=== PATIENT | female | born 1935 | race Caucasian/White ===

== ENCOUNTER 2024-02-06 23:29 | Inpatient (IN) ==
--- OUTSIDE RECORDS SUMMARY | 2024-02-06 23:35 | External Medical Summary | Summary of Care ---
Author Name Unknown Organization [facility] Address [address] [place] [address] Phone [phone] Care Team Providers Care Boatbuilder Wood Name Role Phone ReavesRoxanna alonzo Primary Care Provider [phone] Reason for Visit * Reason Onset Date Comments Med Request 01/18/2024 Encounter Details Date Type Department Care Team (Late st Contact Info) Description 01/18/2024 Telephone Neurology [facility] [place] [address] [facility] [place] [address] Brenda Walton MD [address] [place] [address] Med Request Allergies Active Allergy Reactions Criticality Noted Date Comments Leticia Awad 12/21/2012 documented as of this encounter (statuses as of 01/26/2024) Medications Loperamide HCl 2 MG Oral Capsule (Imodium) 2 capsules in the morning, then 1 capsule after each loose bowel movement, up to 8 capsules per day. 240 Capsule 1 2 Active Metoprolol Succinate ER 25 MG Oral Tablet Extended Release 24 Hour (toPROL XL)Indications:Es sential hypertension with goal blood pressure less than 140/90 Take 1 Tablet by mouth in the morning. In the morning.. 90 Tablet 1 4 Active Triamcinolone Acetonide 0.1 % External Cream (Aristocort)Indic ations:Itching Apply to rash twice a day as neded for itching 45 g 1 4 Active Lisinopril 10 MG Oral Tablet (Prinivil)Indicat ions:Essential hypertension with goal blood pressure less than 140/90 Take 1 Tablet by mouth in the morning. 90 Tablet 3 4 Active Atorvastatin Calcium 10 MG Oral Tablet (Lipitor)Indicati ons:Dyslipidemia, goal LDL below 100 TAKE 1 TABLET BY MOUTH ON THURSDAY, THURSDAY, AND THURSDAY 45 Tablet 3 4 Active Levothyroxine Sodium 75 MCG Oral Tablet (Levoxyl) Take 1 Tablet by mouth in the morning. (at least 30 min prior to breakfast or other meds). 30 Tablet 5 4 Active documented as of this encounter (statuses as of 01/26/2024) Active Problems Problem Noted Date Diagnosed Date Memory deficit 07/27/2023 Overview (07/27/2023): MMSE 26, down from 29 one year prior. COPD, group A, by GOLD 2017 classification 07/21 Overview: Per COPD GOLD Classification Pulmonary fibrosis 08/21/2021 Hypertensive kidney disease with stage 3b chronic kidney disease 12/19/2019 Overview: Per CKD protocol Actinic keratosis 03/24/2018 Hx of nonmelanoma skin cancer 03/23/2017 Overview (11/04/2022): squamous cell carcinoma (R lateral calf 05/2019, L forearm 08/29, R lateral 4th finger 11/01), nonmelanoma skin cancer (forehead- [facility], 50-60 yrs ago) History of uterine cancer 02/24/2017 Copy of advanced directive obtained 02/13/2017 Essential hypertension with goal blood pressure less than 140/90 11/16/2015 Dyslipidemia, goal LDL below 100 07/24/2014 Former heavy tobacco smoker 12/21/2012 Acquired hypothyroidism 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): COLITIS NONINFECTIOUS RADIATION documented as of this encounter (statuses as of 01/26/2024) Resolved Problems Problem Noted Date Diagnosed Date Resolved Date COPD, 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 determined 08/21/2021 07/24/2022 Overview: Per COPD GOLD Classification ILD (interstitial lung disease) 08/21/2021 01/07/2023 Chronic kidney disease, stage 3b 06/19/2020 10/09/2020 Overview: Per CKD protocol Old MA (myocardial infarction) 10/05/2019 10/05/2019 Hypertensive kidney disease with chronic kidney disease stage III 07/07/2018 12/22/2019 Overview: Per CKD protocol 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 02/24/2017 10/09/2020 HTN, goal below 140/90 07/24/201411/15 Constipation, slow transit 07/24/2014 0 02/10/2017 Kidney disease, chronic, sta ge III (GFR 30-59 ml/min) 04/24/2014 07/21/2018 Overview: Per CKD protocol #1 Osteoarthritis of basilar joint of thumb 08/17/2013 2017 Dyslipidemia, goal LDL below 130 01/25/2013 07/24/2014 HTN, goal below 140/80 12/21/201207/24 Chest pain 12/21/2012 01/25/2013 Abnormal ECG 12/21/2012 01/26/2013 GERD (gastroesophageal reflux disease) 12/03/2012 02/10/2017 Iron deficiency anemia 06/24/201112/29 Other iron deficiency anemia 01/17/2010 07/16/2010 Overview (11/10/2016): ICD-10 update of inactive term Dyslipidemia, goal LDL below 160 05/30/2009 01/25/2013 Dyslipidemia, goal to be determined 01/16/2009 05/30/2009 Overview (01/16/2009): Per Lipid Taxonomy. ADVANCE DIRECTIVE INFORMATION 06/27/2005 02/10/2017 Overview (06/27/2005): No, Advance Directive brochure given to patient. Hypothyroidism 09/29/2002 05/30/2008 Mixed dyslipidemia 09/29/2002 9 Overview (01/16/2009): Per Lipid Taxonomy. Senile osteoporosis 02/20/19 15 Other iron deficiency anemia 11/29/2008 Overview (11/10/2016): ICD-10 update of inactive term Degeneration of lumbosacral intervertebral disc 02/10/2017 Urge incontinence 02/10/2017 Female stress incontinence 0 02/10/2017 documented as of this encounter (statuses as of 01/26/2024) Immunizations Name Administration Dates Next Due COVID-19 mRNA, LNP-s, No Pre serve, 2-Dose Series (Pfizer) 10/10/2020,04/06/2020,03/16/2020 Pneumococcal Conjugate Vacc, 13 Valent (Prevnar) 07/24/2014 Pneumococcal Polysaccharide PPV23 (Pneumovax) 02/09/2003 Season Influenza, Quad, PF, Adjuvanted, 65+ Yrs, IM (FLUAD) 11/07/2019 Seasonal Influenza Vac., MDV , IM, 0.5 mL (Fluzone) 11/10/2015,11/09/2013,11/09/2012,11/09,12/14/2010,11/09/2009 Seasonal Influenza, PF, 6 M & above, IM , (FluLaval or Fluzone) 12/10/2017 Seasonal Influenza, Quadriva lent, No Preserve, IM 11/08/2022,12/08/2016,11/23/2014 Seasonal Influenza, Trivalen t, Adjuvanted, 65+ YRS, PF, (Fluad) 10/25/2020,10/18/2018 TD, Preservative Free 11/29/2008 TDAP (age 10 and older)(Boostrix) 10/05/2019 Varicella Zoster Vaccine (Adult) 01/10/2012 Zoster Vaccine Recombinant (Shingrix) 01/07/2023 ,07/21/2022 documented as of this encounter Social History Tobacco Use Types Packs/Day Years Used Date Smoking Tobacco: Former Cigarettes 1.5 35 0 02/09/1953 - 02/09/1990 Smokeless Tobacco: Never Alcohol Use Standard Drinks/Week Comments No 0 (1 standard drink = 0.6 oz pur e alcohol) PHQ-2 Answer Date Recorded PHQ Adult Total Score 0 07/27/2023 Hunger Vital Sign Answer Date Recorded Within the past 12 months, y ou worried that your food would run out before you got the money to buy more. Never true 07/27/19 24 Within the past 12 months, t he food you bought just didn't last and you didn't have money to get more. Never true 07/27/2023 Childcare Answer Date Recorded Do you feel overwhelmed with taking care of a child, family member or friend? No 07/27/2023 Does your family need help f inding childcare? (Household - for ages 0-17 years) Not on file 07/27/2023 Clothing Answer Date Recorded Have you been unable to get clothing when it was really needed? No 07/27/2023 Is your family able to get c lothes or diapers when needed? (Household - for ages 0-17 years) Not on file 07/27/2023 Personal Safety Answer Date Recorded Do you feel unsafe or have concerns for your saf ety? No 07/27/2023 Do you have concerns for you r family's safety? (Household - for ages 0-17 years) Not on file 07/27/2023 Utilities Answer Date Recorded Do you have trouble paying y our heating, water, or electric bill? No 07/27/2023 Is your family able to pay t he heat, water, or electric bill? (Household - for ages 0-17 years) Not on file 07/27/2023 Does your family have access to good internet? (Household - for ages 0-17 years) Not on file 07/27/2023 Employment Status Answer Date Recorded Are you unemployed or without regular income? No 07/27/2023 Does the household have a re gular source of income? (Household - for ages 0-17 years) Not on file 07/27/2023 Social Connections Answer Date Recorded How often do you feel lonely or isolated from those around you? Sometimes 07/27/2023 Financial Resource Strain Answer Date R ecorded Do you have any trouble payi ng for your medications, or do you think you might in the future? No 07/27/2023 Does your family have troubl e paying for medicine? (Household - for ages 0-17 years) Not on file 07/27/2023 Transportation Needs Answer Date Record ed READ ONLY Do you have troubl e getting a ride to medical visits or work? Never True 07/27/2023 Does your family have a hard time getting a ride to doctors visits? (Household - for ages 0-17 years) Not on file 07/27/2023 Has lack of transportation k ept you from medical appointments, meetings, work, or from getting things needed for daily living? Check all that apply. (Adult - for ages 18 years and over) Not on file 07/27/2023 Do you (or your family) have trouble finding or paying for a ride (transportation)? (Household - for ages 0-17 years) Not on file 07/27/2023 Housing Stability Answer Date Recorded Do you currently live in a s helter or have no steady place to sleep at night? No 07/27/2023 READ ONLY Do you think you a re at risk of becoming homeless? No 07/27/2023 Does your family worry about paying for your home or becoming homeless? (Household - for ages 0-17 years) Not on file 0 07/27/2023 Are you homeless or worried that you might be in the future? (Adult - for ages 18 years and over) Not on file Are you (or your family) douglas eless or worried that you might be in the future? (Household - for ages 0-17 years) Not on file Food Insecurity Answer Date Recorded Do you need food for this week? No 07/27/2023 Are you able to get enough f ood for your family? (Household - for ages 0-17 years) Not on file 07/27/2023 Does your family need food t his week? (Household - for ages 0-17 years) Not on file 07/27/2023 Do you always have enough fo od for your family? 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 * Telephone Encounter - Althea De La Rosa electrical assembler - 01/20/2024 9:50 AM EST Daughter calling about vitamin b asking for call back from pcp. Thank you, Althea De La Rosa,[facility] [employer] [facility] 01/20/2024,9:50 AM * Telephone Encounter - Terese Villavicencio, MED ASSIST - 01/18/2024 10:52 AM EST LMOM. Ok to relay message when daughter returns call. * Telephone Encounter - Brenda Walton MD - 01/18/2024 9:14 AM EST Call patient's daughter tell her vitamin B12 level is very low this can cause memory issues. Primary care should be in touch about how to supplement typically this would be via injection documented in this encounter Plan of Treatment Upcoming Encounters Date Type Department Care Team (Late st Contact Info) Description 01/29/2024 9:20 AM EST Nurse Only Ancillary [address] [place] [id number] Beatrice, Nurse [address] [place] [address] 02/08/2024 8:45 AM EST Imaging Radiology [address] [place] [address] 03/16/2024 8:50 AM EST Office Visit Family Medicine [address] [place] [phone] Roxanna Reaves, [address] [place] [address] 03/24/2024 1:00 PM EST Office Visit Neurology [facility] [address] [facility] [place] [address] Brenda Walton MD [address] [place] [address] 07/28/2024 9:00 AM EDT Nurse Only Ancillary [address] [place] [address] [place], Nurse Annual Wellness [address] [place] [address] [place] [address] Health Maintenance Due Date Last Done Comments Alpha-1 Antitrypsin 09/10/1953 DXA Scan 09/02/2020 09/02/2013, 10/11, 02/07/2009 *COPD SEVERITY VERIFIED BY PFT 08/23/2021 COVID-19 Vaccine ( season) 2023 11/25/2021, 01/17/2021, 10/10/2020, Additional history exists Influenza Vaccine (FLU shot) (#1) 2023 11/08/2022, 11/08/2022, 10/22/2022, Additional history exists Albumin/Creatinine Ratio 01/08/2024 023, 01/07/2022, 10/09/2020, Additional history exists CKD PHOS USE SMARTSET 07428 01/08/202412/11, 01/07/2022, 10/09/2020, Additional history exists Adult Wellness Visit 07/26/2024 07/27/2023, 07/24/2022, 12/31/2020 Depression Screening 07/26/2024 07/27/2023 CKD HGB USE SMARTSET 89733 01/14/202501/14, 01/15/2024, 01/07/2023, Additional history exists O2 ASSESSMENT COMPLETED IN PAST YEAR FOR COPD 01/14/2025 01/15/2024 TSH 01/14/2025 01/15/2024, 12/11, 07/17/2022, Additional history exists DTap/Tdap Vaccines (2 - Td or Tdap) 10/04/2029 10/05/2019, 11/29/2008 Pneumococcal Vaccine: 65+ Years Completed 07/24/2014, 02/09/2003 Zoster Vaccines Completed 01/07/2023, 07/10, 01/10/2012 HPV (Gardasil) Vaccine Aged Out No lo nger eligible based on patient's age to complete this topic Hepatitis B Vaccine Aged Out No longe r eligible based on patient's age to complete this topic MENINGOCOCCAL (MENACTRA/MENVEO) Aged Out No longer eligible based on patient's age to complete this topic documented as of this encounter Medical Devices Not on filedocumented as of this encounter Care Teams Boatbuilder Wood Relationship Specialty Start Date End Date Roxanna Reaves DO [address] [place] [address] [place] [phone] PCP - General Internal Medicine 02/10/17 documented as of this encounter
--- OUTSIDE RECORDS SUMMARY | 2024-02-06 23:35 | External Medical Summary | Summary of Care ---
Author Name Unknown Organization [facility] Address [address] [place] [address] Phone [phone] Care Team Providers Care Internet Media Planner Name Role Phone Roxanna Reaves DO Primary Care Provider [phone] Reason for Visit * Reason Onset Date Comments Test Results 01/18/2024 Encounter Details Date Type Department Care Team (Late st Contact Info) Description 01/18/2024 Telephone Family Medicine [address] [place] [phone] Roxanna Reaves DO [address] [place] [address] [place] [phone] Test Results Allergies Active Allergy Reactions Criticality Noted Date Comments Leticia Awad 12/21/2012 documented as of this encounter (statuses as of 01/21/2024) Medications Loperamide HCl 2 MG Oral Capsule [...] other meds). 30 Tablet 5 4 Active Hospital, Clinic, or Other Facility Administered Medication Ordered Dose Route Frequency Start Date End Date Status Vitamin B-12 (Cyanocobalamin) inj 1,000 mcgIndications:Vitamin B12 deficiency 1000 mcg IM [id number] 02/18/2024 01/18/2025 Active Vitamin B-12 (Cyanocobalamin) inj 1,000 mcgIndications:Vitamin B12 deficiency 1000 mcg IM [id number] 01/18/2024 02/15/2024 Active documented as of this encounter (statuses as of 01/21/2024) Active Problems Problem Noted Date Diagnosed Date [...] as of this encounter (statuses as of 01/21/2024) Resolved Problems Problem Noted Date Diagnosed Date Resolved Date COPD, 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 determined 08/21/2021 07/24/2022 Overview: Per COPD GOLD Classification ILD (interstitial lung disease) 08/21/2021 01/07/2023 Chronic kidney disease, stage 3b 06/19/2020 10/09/2020 Overview: Per CKD protocol Old [place] (myocardial infarction) 10/05/2019 10/05/2019 Hypertensive kidney disease [...] as of this encounter (statuses as of 01/21/2024) Immunizations Name Administration Dates Next Due COVID-19 [...] 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 Notify Winter. * Telephone Encounter - Sundeep Cabrera LPN - 01/21/2024 11:39 AM EST Michael Max is aware of note below. Ct is scheduled for first B 12 shot tomorrow. What is the dosage/frequency for OTC B12 tablet? Contact Winter today or update her at apt tomorrow. Please clarify * Telephone Encounter - Estelita Morel LPN - 01/21/2024 10:35 AM EST Left message for michael Max to return my call. * Telephone Encounter - Roxanna Reaves DO - 01/18/2024 11:13 AM EST Please call pt's family: Her vitamin B12 level is very low. I would like her to come in once a week x 4 weeks for vitamin B12 shots, then monthly thereafter. I would also like her to start an over the counter vitamin B12 supplement. Recheck vitamin B12 level in 6-8 weeks. If she has the blood work the same day as one of her shots,she needs to do the blood work FIRST. documented in this encounter Plan of Treatment Upcoming Encounters Date Type Department Care Team (Late st Contact Info) Description 01/22/2024 9:20 AM EST Nurse Only Ancillary [address] [place] [address] Jose Luis, Nurse [address] [place] [address] 02/08/2024 8:45 AM EST Imaging Radiology [address] [place] [address] 03/16/2024 8:50 AM EST Office Visit Family Medicine [address] [place] [phone] Roxanna Reaves DO [address] [place] [address] [place] [address] 03/24/2024 1:00 PM EST Office Visit Neurology [facility] [address] [place] [address] Brenda Walton MD [address] [place] [address] 07/28/2024 9:00 AM EDT Nurse Only Ancillary [address] [place] [address] Rebeka, Nurse [address] [place] [address] Scheduled Orders Name Type Priority Associated Diagnoses Orde r Schedule VITAMIN B12 Lab Routine Vitamin B12 deficiency Expected: 02/29/2024 (Approximate), Expires: 01/17/2025 Health Maintenance Due Date Last Done Comments Alpha-1 Antitrypsin 09/10/1953 DXA Scan 09/02/2020 09/02/2013, 10/11, 02/07/2009 *COPD SEVERITY VERIFIED BY PFT 08/23/2021 COVID-19 Vaccine ( season) 2023 11/25/2021, 01/17/2021, 10/10/2020, Additional history exists Influenza Vaccine (FLU shot) (#1) 2023 11/08/2022, 11/08/2022, 10/22/2022, Additional history exists Albumin/Creatinine Ratio 01/08/2024 023, 01/07/2022, 10/09/2020, Additional history exists CKD PHOS USE SMARTSET 24447 01/08/202412/11, 01/07/2022, 10/09/2020, Additional history exists Adult Wellness Visit 07/26/2024 07/27/2023, 07/24/2022, 12/31/2020 Depression Screening 07/26/2024 07/27/2023 CKD HGB USE SMARTSET 85145 01/14/202501/14, 01/15/2024, 01/07/2023, Additional history exists O2 [...] Not on filedocumented as of this encounter Visit Diagnoses Diagnosis Vitamin B12 deficiency- Primary Other B-complex deficiencies documented in this encounter Care Teams Internet Media Planner Relationship Specialty Start Date End Date Roxanna Reaves DO NPI: [id number] [place] [address] [place] [id number] PCP - General Internal Medicine 02/10/17 documented as of this encounter
--- OUTSIDE RECORDS SUMMARY | 2024-02-06 23:35 | External Medical Summary | Summary of Care ---
Author Name Unknown Organization [facility] Address [address] [place] [address] Phone [phone] Care Team Providers Care Trainer Name Role Phone Roxanna Reaves Primary Care Provider [phone] Reason for Visit * Reason Comments Re-Check Encounter Details Date Type Department Care Team (Latest Contact Info) Description 02/04/2024 9:20 AM EST Office Visit Family Medicine [address] [place] [address] Omari Araujo MD [address] [place] [address] [place] [address] Bilateral impacted cerumen*; Radiation enterocolitis Allergies Active Allergy Reactions Criticality Noted Date Comments Leticia Awad 12/21/2012 documented as of this encounter (statuses as of 02/04/2024) Medications Loperamide HCl 2 MG Oral Capsule [...] 1,000 mcgIndications:Vitamin B12 deficiency 1000 mcg IM [id number] 02/18/2024 01/18/2025 Active Vitamin B-12 (Cyanocobalamin) inj 1,000 mcgIndications:Vitamin B12 deficiency 1000 mcg IM QWEEK 01/18/2024 02/15/2024 Active documented as of this encounter (statuses as of 02/04/2024) Active Problems Problem Noted Date Diagnosed Date [...] as of this encounter (statuses as of 02/04/2024) Resolved Problems Problem Noted Date Diagnosed Date Resolved Date COPD, 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 determined 08/21/2021 07/24/2022 Overview: Per COPD GOLD Classification ILD (interstitial lung disease) 08/21/2021 01/07/2023 Chronic kidney disease, stage 3b 06/19/2020 10/09/2020 Overview: Per CKD protocol Old PR (myocardial infarction) 10/05/2019 10/05/2019 Hypertensive kidney disease [...] as of this encounter (statuses as of 02/04/2024) Immunizations Name Administration Dates Next Due COVID-19 [...] 0 02/09/1953 - 02/09/1990 Smokeless Tobacco: Never Tobacco Cessation:Counseling Given: Not Answered Alcohol Use Standard Drinks/Week Comments No 0 [...] Industry Job Start 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 Not on file Not o n file 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 Not on file Not on file N ot on file documented as of this encounter Last Filed Vital Signs Vital Sign Reading Time Taken Comments Blood Pressure 80/60 02/04/2024 9:09 AM EST Pulse 88 02/04/2024 9:09 AM EST Temperature 35.8 C (96.5 F) 02/04/2024 9:09 AM ES T Respiratory Rate - - Oxygen Saturation 95% 02/04/2024 9:09 AM EST Inhaled Oxygen Concentration - - Weight 62.2 kg (137 lb 3.2 oz) 02/04/2024 9:09 A M EST Height 155.6 cm (5' 1.25") 02/04/2024 9:09 AM ES T Body Mass Index 25.71 02/04/2024 9:09 AM EST documented in this encounter Progress Notes * Omari Araujo MD - 02/04/2024 9:10 AM EST Nursing Notes: Nicol Wall CMA 02/04/24 0916 Sign at exiting of workspace Was seen at [facility] last week needing ears flushed, but they gave pt deborx drops and told pt to f/u here after taking for a week, also wants B12 shot Patient Active Problem List Diagnosis Acquired hypothyroidism Radiation enterocolitis Former heavy tobacco smoker Dyslipidemia, goal LDL below 100 Essential hypertension with goal blood pressure less than 140/90 Copy of advanced directive obtained History of uterine cancer Hx of nonmelanoma skin cancer Actinic keratosis Hypertensive kidney disease with stage 3b chronic kidney disease Pulmonary fibrosis (HCC) COPD, group A, by GOLD 2017 classification (HCC) Memory deficit Past Medical History: Diagnosis Date Cervical cancer (HCC) 1989 Constipation, slow transit 07/24/2014 Degeneration of lumbosacral intervertebral disc Diverticulosis of colon Dyslipidemia, goal LDL below 100 07/24/2014 Dyslipidemia, goal LDL below 160 05/30/2009 Female stress incontinence GERD (gastroesophageal reflux disease) 12/03/2012 History of malignant neoplasm metastatic to lung 02/24/2017 HTN, goal below 140/90 07/24/2014 Intestinal obstruction (HCC) STRICTURE (SEE ALSO STENOSIS) BOWEL - colonic stricture Iron deficiency anemia 06/24/2011 Malignant neoplasm of lower lobe, bronchus or lung 1989 METs from uterine cancer Mixed dyslipidemia Osteoarthritis of basilar joint of thumb 08/17/2013 Other specified acquired hypothyroidism Other specified iron deficiency anemias Radiation enterocolitis COLITIS NONINFECTIOUS RADIATION Senile osteoporosis Urge incontinence Past Surgical History: Procedure Laterality Date APPENDECTOMY W/OTHER PROCEDURE age 42 CARDIAC CATH SCANNED RESULT 01/07/2013 minor irregularities COLONOSCOPY, DIAGNOSTIC (RECTUM) 2005 [facility] - unable to do due to scarring from radiation COLONOSCOPY, DIAGNOSTIC (RECTUM) 04/29/2005 radiation colitis and colonic stricture - Dr. Haney CORONARY ANGIOGRAPHY W/LEFT HEART CATH 01/07/2013 CORONARY ANGIOGRAPHY W/LEFT HEART CATH performed by Willy Prater MD at [facility] [place] EGD, FLEXIBLE, DIAGNOSTIC 08/16/2007 biopsies--mild irritation, negative for H.Pylori EGD, FLEXIBLE, DIAGNOSTIC 10/24/2019 esophagitis, gastric ulcers, repeat 8 wks / ESOPHAGOGASTRODUODENOSCOPY (EGD), FLEXIBLE, TRANSORAL, DIAGNOSTIC performed by Estelita Barertt DO at ENDOSCOPY [facility] FLUORO BARIUM ENEMA W AIR 2005 [facility] - normal LIGATE/CUT OVIDUCT(S) age 42 REMOVAL OF OVARY/OVIDUCT(S) 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 Tobacco Use Smoking status: Former Current packs/day: 0.00 Average packs/day: 1.5 packs/day for 35.0 years (52.5 ttl pk-yrs) Types: Cigarettes Start date: 02/09/1953 Quit date: 02/09/1990 Years since quittin.0 Smokeless tobacco: Never Vaping Use Vaping status: Never Used Substance and Sexual Activity Alcohol use: No Drug use: No Sexual activity: Not Currently Partners: Male Other Topics Concern Service No Blood Transfusions Yes Comment: 01/18 Caffeine Concern No Occupational Exposure No Hobby Hazards No Sleep Concern No Stress Concern No Weight Concern No Special Diet No Back Care Yes Exercise Yes Bike Helmet Not Asked Seat Belt Not Asked Self-Exams Yes Social History Narrative No pets. No mold. as of 1989 Social Needs Financial Resource Strain: Low Risk (07/27/2023) Financial Resource Strain Do you have any trouble paying for your medications, or do you think you might in the future? (Adult - for ages 18 years and over): No Does your family have trouble paying for medicine? (Household - for ages 0-17 years): Not on file Food Insecurity: No Food Insecurity (07/27/2023) Food Insecurity Do you need food for this week? (Adult - for ages 18 years and over): No Are you able to get enough food for your family? (Household - for ages 0-17 years): Not on file Does your family need food this week? (Household - for ages 0-17 years): Not on file Do you always have enough food for your family? (Household - for ages 0-17 years): Not on file Transportation Needs: No Transportation Needs (07/27/2023) Transportation Needs Do you have trouble getting a ride to medical visits or work? (Adult - for ages 18 years and over):Never True Does your family have a hard time getting a ride to doctors visits? (Household - for ages 0-17 years): Not on file Has lack of transportation kept you from medical appointments, meetings, work, or from getting things needed for daily living? Check all that apply. (Adult - for ages 18 years and over): Not on file Do you (or your family) have trouble finding or paying for a ride (transportation)? (Household - for ages 0-17 years): Not on file Social Connections: Socially Integrated (07/27/2023) Social Connections How often do you feel lonely or isolated from those around you? (Adult - for ages 18 years and over): Sometimes Housing Stability: Low Risk (07/27/2023) Housing Stability Do you currently live in a usp or have no steady place to sleep at night? (Adult - for ages 18 years and over): No Do you think you are at risk of becoming homeless? (Adult - for ages 18 years and over): No Does your family worry about paying for your home or becoming homeless? (Household - for ages 0-17 years): Not on file Are you homeless or worried that you might be in the future? (Adult - for ages 18 years and over): Not on file Are you (or your family) homeless or worried that you might be in the future? (Household - for ages0-17 years): Not on file Current Outpatient Medications Medication Sig Dispense Refill Loperamide HCl 2 MG Oral Capsule (Imodium) 2 capsules in the morning, then 1 capsule after each loose bowel movement, up to 8 capsules per day. 240 Capsule 1 Metoprolol Succinate ER 25 MG Oral Tablet Extended Release 24 Hour (toPROL XL) Take 1 Tablet by mouth in the morning. In the morning.. 90 Tablet 1 Triamcinolone Acetonide 0.1 % External Cream (Aristocort) Apply to rash twice a day as neded for itching 45 g 1 Lisinopril 10 MG Oral Tablet (Prinivil) Take 1 Tablet by mouth in the morning. 90 Tablet 3 Atorvastatin Calcium 10 MG Oral Tablet (Lipitor) TAKE 1 TABLET BY MOUTH ON THURSDAY, THURSDAY, AND THURSDAY 45 Tablet 3 Levothyroxine Sodium 75 MCG Oral Tablet (Levoxyl) Take 1 Tablet by mouth in the morning. (at least 30 min prior to breakfast or other meds). 30 Tablet 5 Current Facility-Administered Medications Medication Dose Route Frequency Provider Last Rate Last Admin [START ON 02/18/2024] Vitamin B-12 (Cyanocobalamin) inj 1,000 mcg 1,000 mcg Intramuscular Q4 Weeks Vitamin B-12 (Cyanocobalamin) inj 1,000 mcg 1,000 mcg Intramuscular Q Week 1,000 mcg at 01/29/24 0907 B12 shot given O Blood pressure 80/60, pulse 88, temperature 96.5 F (35.8 C), temperature source Infrared , height 5' 1.25" (1.556 m), weight 137 lb 3.2 oz (62.2 kg), SpO2 95%. She has wax bilateraly. I personally rinsed out the cerumen impaction with warm water and the syringe. A curette was used to help with removing the wax. TMs and canals normal. No wax. A: Bilateral impacted cerumen (Primary) Radiation enterocolitis Follow Up: Return if symptoms worsen or fail to improve. documented in this encounter Nursing Notes * Nicol Wall CMA - 02/04/2024 9:15 AM EST Was seen at [facility] last week needing ears flushed, but they gave pt deborx drops and told pt to f/u here after taking for a week, also wants B12 shot documented in this encounter Plan of Treatment Upcoming Encounters Date Type Department Care Team (Late st Contact Info) Description 02/08/2024 8:45 AM EST Imaging Radiology [address] [place] [address] 03/16/2024 8:50 AM EST Office Visit Family Medicine [address] [place] [phone] [address] [place] [address] 03/24/2024 1:00 PM EST Office Visit Neurology [facility] [place] [address] [facility] [place] [address] Brenda Walton MD [address] [place] [address] 07/28/2024 9:00 AM EDT Nurse Only Ancillary [address] [place] [address] [place], Nurse Annual Wellness [address] [place] [address] [place] [address] Health Maintenance Due Date Last Done Comments Alpha-1 Antitrypsin 09/10/1953 DXA Scan 09/02/2020 09/02/2013, 10/11, 02/07/2009 *COPD SEVERITY VERIFIED BY PFT 08/23/2021 COVID-19 Vaccine ( season) 2023 11/25/2021, 01/17/2021, 10/10/2020, Additional history exists Influenza Vaccine (FLU shot) (#1) 2023 11/08/2022, 11/08/2022, 10/22/2022, Additional history exists Albumin/Creatinine Ratio 01/08/2024 023, 01/07/2022, 10/09/2020, Additional history exists CKD PHOS USE SMARTSET 23098 01/08/202412/11, 01/07/2022, 10/09/2020, Additional history exists Adult Wellness Visit 07/26/2024 07/27/2023, 07/24/2022, 12/31/2020 Depression Screening 07/26/2024 07/27/2023 CKD HGB USE SMARTSET 96248 01/14/202501/14, 01/15/2024, 01/07/2023, Additional history exists TSH 01/14/2025 01/15/2024, 12/11, 07/17/2022, Additional history exists O2 ASSESSMENT COMPLETED IN PAST YEAR FOR COPD 02/03/2025 02/04/2024 DTap/Tdap Vaccines (2 - Td or Tdap) 10/04/2029 10/05/2019, 11/29/2008 Pneumococcal Vaccine: 50+ Years Completed 07/24/2014, 02/09/2003 Zoster Vaccines Completed [...] as of this encounter Visit Diagnoses Diagnosis Bilateral impacted cerumen- Primary Impacted cerumen 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 documented in this encounter Administered Medications Active Administered Medications - up to 3 most recent administrations Medication Order MAR Action Action Date Dose Rate Site Vitamin B-12 (Cyanocobalamin) inj 1,000 mcg 1,000 mcg, Intramuscular, QWEEK, First dose on Thu01/18/24 at 1200, Last dose on Thu02/08/24 at 1200, For 4 dosesIndications:Vitam in B12 deficiency Given 02/04/2024 9:20 AM EST 1,000 mcg Deltoid Left Upper Given 01/29/2024 9:07 AM EST 1,000 mcg De ltoid Left Upper Given 01/22/2024 9:07 AM EST 1,000 mcg De ltoid Right Upper documented in this encounter Care Teams Trainer Relationship Specialty Start Date End Date Roxanna Reaves DO [address] [place] [address] [place] [phone] PCP - General Internal Medicine 02/10/17 documented as of this encounter
--- OUTSIDE RECORDS SUMMARY | 2024-02-06 23:35 | External Medical Summary | Summary of Care ---
Author Name Unknown Organization [facility] Address [address] [facility] [place] [address] Phone [phone] Care Team Providers Care Sewer Repairer Name Role Phone ReavesRoxanna alonzo Primary Care Provider [phone] Encounter Details Date Type Department Care Team (Late st Contact Info) Description 01/22/2024 9:20 AM EST Nurse Only Ancillary [address] [place] [address] [place], Nurse [address] [place] [address] Allergies Active Allergy Reactions Criticality Noted Date Comments Leticia Awad 12/21/2012 documented as of this encounter (statuses as of 01/22/2024) Medications Loperamide HCl 2 MG Oral Capsule [...] 1,000 mcgIndications:Vitamin B12 deficiency 1000 mcg IM [id number] 02/18/2024 01/18/2025 Active Vitamin B-12 (Cyanocobalamin) inj 1,000 mcgIndications:Vitamin B12 deficiency 1000 mcg IM QWEEK 01/18/2024 02/15/2024 Active documented as of this encounter (statuses as of 01/22/2024) Active Problems Problem Noted Date Diagnosed Date [...] as of this encounter (statuses as of 01/22/2024) Resolved Problems Problem Noted Date Diagnosed Date [...] as of this encounter (statuses as of 01/22/2024) Immunizations Name Administration Dates Next Due COVID-19 mRNA, LNP-s, No Pre serve, 2-Dose Series (Tablo) 10/10/2020,04/06/2020,03/16/2020 Pneumococcal Conjugate Vacc, 13 Valent (Prevnar) [...] 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 Not on file Not o n file 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 [address] [facility] [address] Brenda Walton MD [address] [facility] [place] [address] 07/28/2024 9:00 AM EDT Nurse Only Ancillary [address] [place] [address] Nurse Rebeka [address] [place] [address] Health Maintenance Due Date Last Done Comments Alpha-1 Antitrypsin 09/10/1953 DXA Scan 09/02/2020 09/02/2013, 10/11, 02/07/2009 *COPD SEVERITY VERIFIED BY PFT 08/23/2021 COVID-19 Vaccine ( season) 2023 11/25/2021, 01/17/2021, 10/10/2020, Additional history exists Influenza Vaccine (FLU shot) (#1) 2023 11/08/2022, 11/08/2022, 10/22/2022, Additional history exists Albumin/Creatinine Ratio 01/08/2024 023, 01/07/2022, 10/09/2020, Additional history exists CKD PHOS USE SMARTSET 32634 01/08/202412/11, 01/07/2022, 10/09/2020, Additional history exists Adult Wellness Visit 07/26/2024 07/27/2023, 07/24/2022, 12/31/2020 Depression Screening 07/26/2024 07/27/2023 CKD HGB USE SMARTSET 98699 01/14/202501/14, 01/15/2024, 01/07/2023, Additional history exists O2 [...] Not on filedocumented as of this encounter Administered Medications Active Administered Medications - up to 3 most recent administrations Medication Order MAR Action Action Date Dose Rate Site Vitamin B-12 (Cyanocobalamin) inj 1,000 mcg 1,000 mcg, Intramuscular, QWEEK, First dose on Thu01/18/24 at 1200, Last dose on Thu02/08/24 at 1200, For 4 dosesIndications:Vitam in B12 deficiency Given 01/22/2024 9:07 AM EST 1,000 mcg Deltoid Right Upper documented in this encounter Care Teams Sewer Repairer Relationship Specialty Start Date End Date Roxanna Reaves DO [address] [place] [address] [place] [phone] PCP - General Internal Medicine 02/10/17 documented as of this encounter
--- OUTSIDE RECORDS SUMMARY | 2024-02-06 23:35 | External Medical Summary | Summary of Care ---
Author Name Unknown Organization [facility] Address [address] [facility] [address] Phone [phone] Care Team Providers Care Turkish Line Attendant Name Role Phone ReavesRoxanna alonzo Primary Care Provider [phone] Reason for Visit * Reason Comments Medication Administration Encounter Details Date Type Department Care Team (Late st Contact Info) Description 01/29/2024 9:20 AM EST Nurse Only Ancillary [address] [place] [address] [place], Nurse [address] [place] [address] Medication Administration Allergies Active Allergy Reactions Criticality Noted Date Comments Leticia Awad 12/21/2012 documented as of this encounter (statuses as of 01/29/2024) Medications Loperamide HCl 2 MG Oral Capsule [...] 1,000 mcgIndications:Vitamin B12 deficiency 1000 mcg IM [id number] 02/18/2024 01/18/2025 Active Vitamin B-12 (Cyanocobalamin) inj 1,000 mcgIndications:Vitamin B12 deficiency 1000 mcg IM QWEEK 01/18/2024 02/15/2024 Active documented as of this encounter (statuses as of 01/29/2024) Active Problems Problem Noted Date Diagnosed Date [...] as of this encounter (statuses as of 01/29/2024) Resolved Problems Problem Noted Date Diagnosed Date Resolved Date COPD, 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 determined 08/21/2021 07/24/2022 Overview: Per COPD GOLD Classification ILD (interstitial lung disease) 08/21/2021 01/07/2023 Chronic kidney disease, stage 3b 06/19/2020 10/09/2020 Overview: Per CKD protocol Old MO (myocardial infarction) 10/05/2019 10/05/2019 Hypertensive kidney disease [...] as of this encounter (statuses as of 01/29/2024) Immunizations Name Administration Dates Next Due COVID-19 [...] 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 file 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 Not on file Not on file N ot on file documented as of this encounter Plan of Treatment Upcoming Encounters Date Type Department Care Team (Late st Contact Info) Description 02/05/2024 9:20 AM EST Nurse Only Ancillary [address] [place] [address] [place], Nurse [address] [place] [address] 02/08/2024 8:45 AM EST Imaging Radiology [address] [place] [address] 03/16/2024 8:50 AM EST Office Visit Family Medicine [address] [place] [phone] Roxanna Reaves[address] [place] [address] 03/24/2024 1:00 PM EST [facility] [address] [facility] [place] [address] Brenda Walton MD [address] [facility] [place] [address] 07/28/2024 9:00 AM EDT Nurse Only Ancillary [address] [place] [address] [place], Nurse Annual Wellness [address] [place] [address] [place] [address] Health Maintenance Due Date Last Done Comments Alpha-1 Antitrypsin 09/10/1953 DXA Scan 09/02/2020 09/02/2013, 10/11, 02/07/2009 *COPD SEVERITY VERIFIED BY PFT 08/23/2021 COVID-19 Vaccine ( season) 2023 11/25/2021, 01/17/2021, 10/10/2020, Additional history exists Influenza Vaccine (FLU shot) (#1) 2023 11/08/2022, 11/08/2022, 10/22/2022, Additional history exists Albumin/Creatinine Ratio 01/08/2024 023, 01/07/2022, 10/09/2020, Additional history exists CKD PHOS USE SMARTSET 68463 01/08/202412/11, 01/07/2022, 10/09/2020, Additional history exists Adult Wellness Visit 07/26/2024 07/27/2023, 07/24/2022, 12/31/2020 Depression Screening 07/26/2024 07/27/2023 CKD HGB USE SMARTSET 42298 01/14/202501/14, 01/15/2024, 01/07/2023, Additional history exists O2 [...] For 4 dosesIndications:Vitam in B12 deficiency Given 01/29/2024 9:07 AM EST 1,000 mcg Deltoid Left Upper Given 01/22/2024 9:07 AM EST 1,000 mcg De ltoid Right Upper documented in this encounter Care Teams Turkish Line Attendant Relationship Specialty Start Date End Date Roxanna Reaves DO [address] [place] [address] [place] [address] PCP - General Internal Medicine 02/10/17 documented as of this encounter
--- OUTSIDE RECORDS SUMMARY | 2024-02-06 23:36 | External Medical Summary ---
Author Name Unknown Address Unknown Organization K01:[facility] [place] [address] [facility] [id number] Laboratory Report Ordering Provider Test Date Status SILAS ROGEL 09/16/2023 09:26:54 Final Observation Date Value Abnormality Reference (Units) Status Bacteria identified in Specimen by Culture 09/16/2023 09:26:54 No significant growth Final Test: Culture, Urine, Quanti tative
Specimen Source: Urine, Clean Catch
Specimen Type: Urine
Specimen Date: 09/16/2023925
Result Date: 09/17/20231643
Result Status: Final result
Resulting Lab: [facility] [place]
[address] [place]
[place] [address]

CULTURE

No significant growth

null Performing Location [facility] [place] [address] [facility] [address]
--- OUTSIDE RECORDS SUMMARY | 2024-02-06 23:36 | External Medical Summary | Summary of Care ---
Author Name Unknown Organization [facility] Address [address] [place] [address] Phone [phone] Care Team Providers Care Clerk Checker Name Role Phone Roxanna Reaves DO Primary Care Provider + [phone] Reason for Visit * Reason Onset Date Comments Med Request 09/22/2023 Encounter Details Date Type Department Care Team (Late st Contact Info) Description 09/22/2023 Telephone Family Medicine [address] [place] [phone] Roxanna Reaves DO [address] [place] [address] [place] [address] Med Request Allergies Active Allergy Reactions Criticality Noted Date Comments Leticia Awad 12/21/2012 documented as of this encounter (statuses as of 09/22/2023) Medications Medication Sig Dispensed Refills Start Date End Date Status Loperamide HCl 2 MG Oral Capsule (Imodium) 2 capsules in the morning, then 1 capsule after each loose bowel movement, up to 8 capsules per day. 240 Capsule 1 09/16/2021 Active Atorvastatin Calcium 10 MG Oral Tablet (Lipitor)Indications :Dyslipidemia, goal LDL below 100 TAKE 1 TABLET BY MOUTH ON THURSDAY, THURSDAY, AND THURSDAY 45 Tablet 3 11/07/2022 Active Lisinopril 10 MG Oral Tablet (Prinivil)Indication s:Essential hypertension with goal blood pressure less than 140/90 Take 1 Tablet by mouth in the morning. 90 Tablet 3 12/08/2022 Active Levothyroxine Sodium 75 MCG Oral Tablet (Levoxyl) Take 1 Tablet by mouth in the morning. (at least 30 min prior to breakfast or other meds). 30 Tablet 11 01/22/2023 Active Metoprolol Succinate ER 25 MG Oral Tablet Extended Release 24 Hour (toPROL XL)Indications:Essen tial hypertension with goal blood pressure less than 140/90 Take 1 Tablet by mouth in the morning. In the morning.. 90 Tablet 1 09/10/2023 Active Triamcinolone Acetonide 0.1 % External Cream (Aristocort)Indicati ons:Itching Apply to rash twice a day as neded for itching 45 g 1 09/22/2023 Active documented as of this encounter (statuses as of 09/22/2023) Active Problems Problem Noted Date Diagnosed Date Memory deficit 07/27/2023 Overview: MMSE 26, down from 29 one year prior. COPD, group A, by GOLD 2017 classification 07/21 Overview: Per COPD GOLD Classification Pulmonary fibrosis 08/21/2021 Hypertensive kidney disease with stage 3b chronic kidney disease 12/19/2019 Overview: Per CKD protocol Actinic keratosis 03/24/2018 Hx of nonmelanoma skin cancer 03/23/2017 Overview: squamous cell carcinoma (R lateral calf 05/2019, L forearm 08/29, R lateral 4th finger 11/01), nonmelanoma skin cancer (forehead- [facility], 50-60 yrs ago) History of uterine cancer 02/24/2017 Copy of advanced directive obtained 02/13/2017 Essential hypertension with goal blood pressure less than 140/90 11/16/2015 Dyslipidemia, goal LDL below 100 07/24/2014 Former heavy tobacco smoker 12/21/2012 Acquired hypothyroidism Radiation enterocolitis Overview: COLITIS NONINFECTIOUS RADIATION documented as of this encounter (statuses as of 09/22/2023) Resolved Problems Problem Noted Date Diagnosed Date Resolved Date COPD, 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 determined 08/21/2021 07/24/2022 Overview: Per COPD GOLD Classification ILD (interstitial lung disease) 08/21/2021 01/07/2023 Chronic kidney disease, stage 3b 06/19/2020 10/09/2020 Overview: Per CKD protocol Old [place] (myocardial infarction) 10/05/2019 10/05/2019 Hypertensive kidney disease [...] 06/24/201112/29 Other iron deficiency anemia 01/17/2010 07/16/2010 Overview: ICD-10 update of inactive term Dyslipidemia, goal LDL below 160 05/30/2009 01/25/2013 Dyslipidemia, goal to be determined 01/16/2009 05/30/2009 Overview: Per Lipid Taxonomy. ADVANCE DIRECTIVE INFORMATION 06/27/2005 02/10/2017 Overview: No, Advance Directive brochure given to patient. Hypothyroidism 09/29/2002 05/30/2008 Mixed dyslipidemia 09/29/2002 9 Overview: Per Lipid Taxonomy. Senile osteoporosis 02/20/19 15 Other iron deficiency anemia 11/29/2008 Overview: ICD-10 update of inactive term Degeneration of lumbosacral intervertebral disc 02/10/2017 Urge incontinence 02/10/2017 Female stress incontinence 0 02/10/2017 documented as of this encounter (statuses as of 09/22/2023) Immunizations Name Administration Dates Next Due COVID-19 mRNA, LNP-s, No Pre serve, 2-Dose Series (Pfizer) 10/10/2020,04/06/2020,03/16/2020 Pneumococcal Conjugate Vacc, 13 Valent (Prevnar) 07/24/2014 Pneumococcal Polysaccharide PPV23 (Pneumovax) 02/09/2003 Season Influenza, Quad, PF, Adjuvanted, 65+ Yrs, IM (FLUAD) 11/07/2019 Seasonal Influenza, PF, 6 M & above, IM , (FluLaval or Fluzone) 12/10/2017 Seasonal Influenza, Quadriva lent, No Preserve, IM 11/08/2022,12/08/2016,11/23/2014 Seasonal Influenza, Split, I IV3, With Preserve, Inj 11/10/2015,11/09/2013,11/09/2012,11/09,12/14/2010,11/09/2009 Seasonal Influenza, Trivalen t, Adjuvanted, 65+ yrs 10/25/2020,10/18/2018 TD, Preservative Free 11/29/2008 TDAP (age [...] Date Recorded PHQ Adult Total Score 0 07/24/2022 Hunger Vital Sign Answer Date Recorded Within the past 12 months, y ou worried that your food would run out before you got the money to buy more. Patient declined Within the past 12 months, t he food you bought just didn't last and you didn't have money to get more. Patient declined 09/2022 Sex and Gender Information Value Date Recorded Sex Assigned at Female 12/31/2020 10:06 AM EST Gender Identity Female 12/31/2020 10:06 AM EST Sexual Orientation Straight 12/31/2020 10 :06 AM EST Job Start Date Occupation Industry Not on file Not on file Not on file documented as of this encounter Miscellaneous Notes * Telephone Encounter - Olena Rojas RN - 09/22/2023 9:00 AM EDT Pending Prescriptions: Disp Refills Triamcinolone Acetonide 0.1 % External Cr*45 g 1 Sig: Apply to rash twice a day as neded for itching Last Visit: 08/05/2023 (in office), Visit date not found (telemedicine) Next Visit: 03/16/2024 Last date the medication was ordered: 2021 Patient Active Problem List Diagnosis Acquired hypothyroidism [...] by GOLD 2017 classification (HCC) Memory deficit Labs: Lab Results Component Value Date/Time CREATININE - [facility] 1.3 (H) 08/05/2023 10:59 AM CREATININE - [facility] 1.4 (H) 10/05/2019 03:07 PM CREATININE, RANDOM URINE - [facility] 160 01/07/2023 10:00 AM CREATININE, RANDOM URINE - [facility] 263 10/05/2019 03:07 PM CREATININE-[facility] 1.1 01/04/2018 12:00 AM CREATININE-[facility] 1.29 (A) 01/04/2018 12:00 AM Lab Results Component Value Date/Time POTASSIUM - [facility] 4.4 08/05/2023 10:59 AM POTASSIUM - [facility] 4.4 10/05/2019 03:07 PM POTASSIUM-[facility] 4.3 01/04/2018 12:00 AM POTASSIUM-[facility]TSIDE LAB 4.2 01/04/2018 12:00 AM Lab Results Component Value Date/Time TSH - [facility] 1.05 01/07/2023 10:00 AM TSH - [facility] 4.08 10/05/2019 03:07 PM Lab Results Component Value Date/Time LDL CHOLESTEROL (CALCULATED) - [facility] UNINTERPRETABLE RESULT 01/19/2018 01:37 PM LDL CHOLESTEROL (CALCULATED) - [facility] 56 02/07/2016 08:19 AM LDL CHOLESTEROL (DIRECT MEASURE) - [facility] 77 01/07/2023 10:00 AM LDL CHOLESTEROL (DIRECT MEASURE) - [facility] 73 01/07/2022 02:29 PM LDL CHOLESTEROL (DIRECT MEASURE) - [facility] 74 10/05/2019 03:07 PM LDL CHOLESTEROL (DIRECT MEASURE) - [facility] 76 01/19/2018 01:37 PM LDL CHOLESTEROL (DIRECT MEASURE) - [facility] 74 02/10/2017 09:24 AM LDL CHOLESTEROL (DIRECT MEASURE) - [facility] 116 (H) 04/23/2006 08:24 AM Lab Results Component Value Date/Time ALT - [facility] 20 01/07/2023 10:00 AM ALT - [facility] 19 10/05/2019 03:07 PM Hemoglobin AIC Results: No results found for: "HEMOGLOBIN A1C" documented in this encounter Plan of Treatment Upcoming Encounters Date Type Department Care Team (Late st Contact Info) Description 03/16/2024 8:50 AM EST Office Visit Family Medicine [address] [place] [phone] [place] [address] 07/28/2024 9:00 AM EDT Nurse Only Ancillary [address] [place] [address] [place], Nurse Annual [address] [place] [phone] Health Maintenance Due Date Last Done Comments Alpha-1 Antitrypsin 09/10/1953 DXA Scan 09/02/2020 09/02/2013, 10/11, 02/07/2009 *COPD SEVERITY VERIFIED BY PFT 08/23/2021 COVID-19 Vaccine (6 - 2023-24 season) 2022 11/25/2021, 01/17/2021, 10/10/2020, Additional history exists Influenza Vaccine (FLU shot) (#1) 2023 11/08/2022, 11/08/2022, 10/22/2022, Additional history exists Albumin/Creatinine Ratio 01/08/2024 023, 01/07/2022, 10/09/2020, Additional history exists CKD HGB USE SMARTSET 19154 01/08/202401/07, 01/07/2022, 01/07/2022, Additional history exists CKD PHOS USE SMARTSET 18539 01/08/202412/11, 01/07/2022, 10/09/2020, Additional history exists TSH 01/08/2024 01/07/2023, 06/0 09/2022, 01/07/2022, Additional history exists Adult Wellness Visit 07/26/2024 07/27/2023, 07/24/2022, 12/31/2020 Depression Screening 07/26/2024 07/27/2023 O2 ASSESSMENT COMPLETED IN PAST YEAR FOR COPD 08/04/2024 08/05/2023 DTaP,Tdap,and Td Vaccines (2 - Td or Tdap) 10/04/2029 [...] as of this encounter Visit Diagnoses Diagnosis Itching Unspecified pruritic disorder documented in this encounter Care Teams Clerk Checker Relationship Specialty Start Date End Date Roxanna Reaves DO [address] [place] [address] [place] [address] PCP - General Internal Medicine 02/10/17 documented as of this encounter
--- OUTSIDE RECORDS SUMMARY | 2024-02-06 23:36 | External Medical Summary | Summary of Care ---
Author Name Unknown Organization [facility] Address [address] [place] [address] Phone [phone] Care Team Providers Care Crossing Watchman Name Role Phone Juan F Rosen DO Primary Care Provider Reason for Visit * Reason Onset Date Comments Medication Refill 12/03/2023 Encounter Details Date Type Department Care Team (Late st Contact Info) Description 12/03/2023 Refill Family Medicine [address] [place] [phone] Juan F Rosen DO [address] [place] [address] [place] [address] Dyslipidemia, goal LDL below 100 Allergies Active Allergy Reactions Criticality Noted Date Comments Leticia Hives Low 12/21/2012 documented as of this encounter (statuses as of 12/03/2023) Medications Medication Sig Dispensed Refills Start Date End Date Status Loperamide HCl 2 MG Oral Capsule (Imodium) 2 capsules in the morning, then 1 capsule after each loose bowel movement, up to 8 capsules per day. 240 Capsule 1 09/16/2021 Active Levothyroxine Sodium 75 MCG Oral Tablet (Levoxyl) Take 1 Tablet by mouth in the morning. (at least 30 min prior to breakfast or other meds). 30 Tablet 11 01/22/2023 Active Metoprolol Succinate ER 25 MG Oral Tablet Extended Release 24 Hour (toPROL XL)Indications:Ess ential hypertension with goal blood pressure less than 140/90 Take 1 Tablet by mouth in the morning. In the morning.. 90 Tablet 1 09/10/2023 Active Triamcinolone Acetonide 0.1 % External Cream (Aristocort)Indica tions:Itching Apply to rash twice a day as neded for itching 45 g 1 09/22/2023 Active Lisinopril 10 MG Oral Tablet (Prinivil)Indicati ons:Essential hypertension with goal blood pressure less than 140/90 Take 1 Tablet by mouth in the morning. 90 Tablet 3 11/05/2023 Active Atorvastatin Calcium 10 MG Oral Tablet (Lipitor)Indicatio ns:Dyslipidemia, goal LDL below 100 TAKE 1 TABLET BY MOUTH ON THURSDAY, THURSDAY, AND THURSDAY 45 Tablet 3 12/03/2023 Active Atorvastatin Calcium 10 MG Oral Tablet (Lipitor)Indicatio ns:Dyslipidemia, goal LDL below 100 TAKE 1 TABLET BY MOUTH ON THURSDAY, THURSDAY, AND THURSDAY 45 Tablet 3 11/07/2022 Discontinue d(Refill) documented as of this encounter (statuses as of 12/03/2023) Active Problems Problem Noted Date Diagnosed Date [...] as of this encounter (statuses as of 12/03/2023) Resolved Problems Problem Noted Date Diagnosed Date Resolved Date COPD, 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 determined 08/21/2021 07/24/2022 Overview: Per COPD GOLD Classification ILD (interstitial lung disease) 08/21/2021 01/07/2023 Chronic kidney disease, stage 3b 06/19/2020 10/09/2020 Overview: Per CKD protocol Old [place] (myocardial infarction) 10/05/2019 10/05/2019 Hypertensive kidney disease [...] as of this encounter (statuses as of 12/03/2023) Immunizations Name Administration Dates Next Due COVID-19 [...] encounter Miscellaneous Notes * Telephone Encounter - Juan F Rosen DO - 12/03/2023 1:23 PM EDTSigned Prescriptions: Disp Refills Atorvastatin Calcium 10 MG Oral Tablet (Li*45 Tab*3 Sig: TAKE 1 TABLET BY MOUTH ON THURSDAY, THURSDAY, AND THURSDAY Authorizing Provider: JUAN F ROSEN * Telephone Encounter - Olena Rojas RN - 12/03/2023 11:43 AM EDTPending Prescriptions: Disp Refills Atorvastatin Calcium 10 MG Oral Tablet (Daily*45 Tab*3 Sig: TAKE 1 TABLET BY MOUTH ON THURSDAY, THURSDAY, AND THURSDAY * Telephone Encounter - Yeni Lake OSA - 12/03/2023 10:23 AM EDT Did you pend patient's preferred pharmacy and medication before forwarding?yes Pharmacy: [facility], [address] [place] Pending Prescriptions: Disp Refills Atorvastatin Calcium 10 MG Oral Tablet (L*45 Tab*3 Sig: TAKE 1 TABLET BY MOUTH ON THURSDAY, THURSDAY, AND THURSDAY Last Visit: 08/05/2023 (in office), Visit date not found (telemedicine) Next Visit: 12/10/2023 If no future appointments scheduled, and last appointment is greater than a year ago, please schedule patient for a follow-up appointment Last date the medication was ordered: 11.07.22 Is this request for a controlled substance?No Urine Drug Screen:No results found for this or any previous visit. Patient Phone Numbers Labs: Lab Results Component Value Date/Time CREAT 1.3 (H) 08/05/2023 10:59 AM CREAT 1.4 (H) 10/05/2019 03:07 PM POTASSIUM 4.4 08/05/2023 10:59 AM POTASSIUM 4.4 10/05/2019 03:07 PM TSH 1.05 01/07/2023 10:00 AM TSH 4.08 10/05/2019 03:07 PM LDL 77 01/07/2023 10:00 AM LDL 74 10/05/2019 03:07 PM LDL UNINTERPRETABLE RESULT 01/19/2018 01:37 PM ALT 20 01/07/2023 10:00 AM ALT 19 10/05/2019 03:07 PM documented in this encounter Plan of Treatment Upcoming Encounters Date Type Department Care Team (Late st Contact Info) Description 12/10/2023 9:40 AM EDT Office Visit Family Medicine [address] [place] [phone] Jessika Daniel PA-C [address] [place] [address] [place] [address] 03/16/2024 8:50 AM EST Office Visit Family Medicine [address] [place] [phone] Juan F Rosen, [address] [place] [address] 07/28/2024 9:00 AM EDT Nurse Only Ancillary [address] [place] [address] [place], Nurse Annual Wellness [address] [place] [address] [place] [address] Health Maintenance Due Date Last Done Comments Alpha-1 Antitrypsin 09/10/1953 DXA Scan 09/02/2020 09/02/2013, 10/11, 02/07/2009 *COPD SEVERITY VERIFIED BY PFT 08/23/2021 COVID-19 Vaccine ( season) 2023 11/25/2021, 01/17/2021, 10/10/2020, Additional history exists Influenza Vaccine (FLU shot) (#1) 2023 11/08/2022, 11/08/2022, 10/22/2022, Additional history exists Albumin/Creatinine Ratio 01/08/2024 023, 01/07/2022, 10/09/2020, Additional history exists CKD HGB USE SMARTSET 59824 01/08/202401/07, 01/07/2022, 01/07/2022, Additional history exists CKD PHOS USE SMARTSET 47361 01/08/202412/11, 01/07/2022, 10/09/2020, Additional history exists TSH 01/08/2024 01/07/2023, 0609/2022, 01/07/2022, Additional history exists Adult Wellness Visit 07/26/2024 07/27/2023, 07/24/2022, 12/31/2020 Depression Screening 07/26/2024 07/27/2023 O2 ASSESSMENT COMPLETED IN PAST YEAR FOR COPD 08/04/2024 08/05/2023 DTap/Tdap Vaccines (2 - Td or Tdap) [...] as of this encounter Visit Diagnoses Diagnosis Dyslipidemia, goal LDL below 100 Other and unspecified hyperlipidemia documented in this encounter Care Teams Crossing Watchman Relationship Specialty Start Date End Date Juan F Rosen DO [address] [place] [address] [place] [phone] PCP - General Internal Medicine 02/10/17 documented as of this encounter
--- OUTSIDE RECORDS SUMMARY | 2024-02-06 23:36 | External Medical Summary | Summary of Care ---
Author Name Unknown Organization [facility] Address [address] [place] [address] Phone [phone] Care Team Providers Care Machine Adjuster Helper Name Role Phone Roxanna Reaves DO Primary Care Provider [phone] Reason for Visit * Reason Onset Date Comments Advice 09/14/2023 Encounter Details Date Type Department Care Team (Late st Contact Info) Description 09/14/2023 Telephone Family Medicine [address] [place] [phone] Roxanna Reaves DO [address] [place] [address] [place] [address] Advice Allergies Active Allergy Reactions Criticality Noted Date Comments Leticia Awad 12/21/2012 documented as of this encounter (statuses as of 09/17/2023) Medications Medication Sig Dispensed Refills Start Date [...] the morning.. 90 Tablet 1 09/10/2023 Active documented as of this encounter (statuses as of 09/17/2023) Active Problems Problem Noted Date Diagnosed Date [...] as of this encounter (statuses as of 09/17/2023) Resolved Problems Problem Noted Date Diagnosed Date Resolved Date COPD, 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 determined 08/21/2021 07/24/2022 Overview: Per COPD GOLD Classification ILD (interstitial lung disease) 08/21/2021 01/07/2023 Chronic kidney disease, stage 3b 06/19/2020 10/09/2020 Overview: Per CKD protocol Old [place] (myocardial infarction) 10/05/2019 10/05/2019 Hypertensive kidney disease [...] as of this encounter (statuses as of 09/17/2023) Immunizations Name Administration Dates Next Due COVID-19 [...] encounter Miscellaneous Notes * Telephone Encounter - Chante Poon LPN - 09/15/2023 4:09 PM EDT Patient(s) daughter returned call. Informed of message. Verbalized understanding. She will bring pt in, to complete UA tomorrow. I offer appts in other clinics and other providers. Daughter declined stating she will only see Dr Reaves. If sx continue or worsen she will call back for appt with anyone. * Telephone Encounter - Sundeep Cabrera LPN - 09/15/2023 3:39 PM EDT Left Vm for Winter (Daughter) to contact clinic back about message below. * Telephone Encounter - Roxanna Reaves DO - 09/14/2023 8:55 AM EDT Appt preferred for evaluation. If no openings, at a minimum needs to rule out UTI and we need to check her pulse ox to make sure she is not hypoxic. UA/urine culture ordered, but again appt preferred if she can be seen within 24-48 hours. * Telephone Encounter - Lesia Fritz LPN - 09/14/2023 8:35 AM EDT Patient's daughter Winter calling. Patient seems to be more confused than usual. Confusion in the morning and night - in the evening she thinks it's morning and in the middle of the night, it's the afternoon. Winter manages [address]'s medication due to the confusion - taking meds atthe wrong times or twice a day when it's once a day. No longer able to do the pill packs herself. Short term memory days are more frequent, less good days than her appt with PCP on 08/04. "She will say Winter I'm so confused I'm going to lose my mind" Winter isn't aware if patient is having UTI symptoms. "She usually would tell me if she was having symptoms like having to go to the bathroom, but only dribbling". Patient hydrates well. Please advise if you would like another appointment for further eval or any testing completed. documented in this encounter Plan of Treatment Upcoming Encounters Date Type Department Care Team (Late st Contact Info) Description 03/16/2024 8:50 AM EST Office Visit Family Medicine [address] [place] [phone] [address] [place] [address] 07/28/2024 9:00 AM EDT Nurse Only Ancillary [address] [place] [address] [place], Nurse [address] [place] [address] Pending Results Name Type Priority Associated Diagnoses Date /Time CULTURE, URINE, QUANTITATIVE Lab Routine Altered mental status, unspecified altered mental status type 09/16/2023 9:26 AM EDT Scheduled Orders Name Type Priority Associated Diagnoses Orde r Schedule CULTURE, URINE, QUANTITATIVE Lab Routine Altered mental status, unspecified altered mental status type Expected: 09/14/2023 (Approximate), Expires: 09/13/2024 Health Maintenance Due Date Last Done Comments Alpha-1 Antitrypsin 09/10/1953 DXA Scan 09/02/2020 09/02/2013, 10/11, 02/07/2009 *COPD SEVERITY VERIFIED BY PFT 08/23/2021 COVID-19 Vaccine ( season) 2022 11/25/2021, 01/17/2021, 10/10/2020, Additional history exists Influenza Vaccine (FLU shot) (#1) 2023 11/08/2022, 11/08/2022, 10/22/2022, Additional history exists Albumin/Creatinine Ratio 01/08/2024 023, 01/07/2022, 10/09/2020, Additional history exists CKD HGB USE SMARTSET 21229 01/08/202401/07, 01/07/2022, 01/07/2022, Additional history exists CKD PHOS USE SMARTSET 37330 01/08/202412/11, 01/07/2022, 10/09/2020, Additional history exists TSH 01/08/2024 01/07/2023, 09/2022, 01/07/2022, Additional history exists Adult Wellness [...] Not on filedocumented as of this encounter Results * (ABNORMAL) URINALYSIS, REFLEX TO MICROSCOPIC (09/16/2023 9:26 AM EDT) Color, Urine Light Yellow Colorless, Light Yellow, Yellow, Dark Yellow 09/16/2023 10:26 PM EDT [facility] Clarity, Urine Clear Clear 09/16/2023 10:26 PM EDT [facility] Glucose, Urine Negative Negative mg/dL 09/16/2023 10:26 PM EDT [facility] Bilirubin, Urine Negative Negative 09/16/2023 10:26 PM EDT [facility] Ketone, Urine Negative Negative mg/dL 09/16/2023 10:26 PM EDT [facility] Specific [place], Urine 1.018 1.003 - 1.030 09/16/2023 10:26 PM EDT [facility] Blood, Urine Negative Negative 09/16/2023 10:26 PM EDT [facility] pH, Urine 6.5 5.0 - 7.5 Units 09/16/2023 10:26 PM EDT [facility] Protein, Urine Trace(A) Negative mg/dL 09/16/2023 10:26 PM EDT LABORATORY C Urobilinogen, Urine Normal Normal mg/dL 09/16/2023 10:26 PM EDT LABORATORY C Nitrite, Urine Negative Negative 09/16/2023 10:26 PM EDT LABORATORY C Esterase, Urine Negative Negative 10:26 PM EDT LABORATORY C Comment, Urine 09/16/2023 10:26 PM EDT LABORATORY C Comment:Screen negative - Mi croscopic not performed. Urine Non-blood Collection / Unknown 09/16/2023 9:26 AM EDT 09/16/2023 9:26 AM EDT Roxanna Reaves DO LAB URINE ORDERABLES LAB[facility]AT[facility] [address] [facility] [place] [id number] documented in this encounter Visit Diagnoses Diagnosis Altered mental status, unspecified altered mental status type- Primary documented in this encounter Care Teams Machine Adjuster Helper Relationship Specialty Start Date End Date Roxanna Reaves DO [address] [place] [address] [place] [id number] PCP - General Internal Medicine 02/10/17 documented as of this encounter
--- OUTSIDE RECORDS SUMMARY | 2024-02-06 23:36 | External Medical Summary | Summary of Care ---
Author Name Unknown Organization [facility] Address [address] [place] [address] Phone [phone] Care Team Providers Care Chiller Hand Name Role Phone Juan F Rosen DO Primary Care Provider [phone] Reason for Visit * Reason Onset Date Comments Medication Refill 12/31/2023 Encounter Details Date Type Department Care Team (Late st Contact Info) Description 12/31/2023 Refill Family Medicine [address] [place] [phone] Juan F Rosen DO [address] [place] [address] [place] [id number] Allergies Active Allergy Reactions Criticality Noted Date Comments Leticia Awad 12/21/2012 documented as of this encounter (statuses as of 01/01/2024) Medications Loperamide HCl 2 MG Oral Capsule (Imodium) 2 capsules in the morning, then 1 capsule after each loose bowel movement, up to 8 capsules per day. 240 Capsule 1 2 Active Metoprolol Succinate ER 25 MG Oral Tablet Extended Release 24 Hour (toPROL XL)Indications:E ssential hypertension with goal blood pressure less than 140/90 Take 1 Tablet by mouth in the morning. In the morning.. 90 Tablet 1 4 Active Triamcinolone Acetonide 0.1 % External Cream (Aristocort)Lara cations:Itching Apply to rash twice a day as neded for itching 45 g 1 4 Active Lisinopril 10 MG Oral Tablet (Prinivil)Indica tions:Essential hypertension with goal blood pressure less than 140/90 Take 1 Tablet by mouth in the morning. 90 Tablet 3 4 Active Atorvastatin Calcium 10 MG Oral Tablet (Lipitor)Indicat ions:Dyslipidemi a, goal LDL below 100 TAKE 1 TABLET BY MOUTH ON THURSDAY, THURSDAY, AND THURSDAY 45 Tablet 3 4 Active Levothyroxine Sodium 75 MCG Oral Tablet (Levoxyl) Take 1 Tablet by mouth in the morning. (at least 30 min prior to breakfast or other meds). 30 Tablet 5 4 Active Levothyroxine Sodium 75 MCG Oral Tablet (Levoxyl) Take 1 Tablet by mouth in the morning. (at least 30 min prior to breakfast or other meds). 30 Tablet 11 3 12/31/19 24 Discontin ued(Refil l) documented as of this encounter (statuses as of 01/01/2024) Active Problems Problem Noted Date Diagnosed Date [...] as of this encounter (statuses as of 01/01/2024) Resolved Problems Problem Noted Date Diagnosed Date Resolved Date COPD, 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 determined 08/21/2021 07/24/2022 Overview: Per COPD GOLD Classification ILD (interstitial lung disease) 08/21/2021 01/07/2023 Chronic kidney disease, stage 3b 06/19/2020 10/09/2020 Overview: Per CKD protocol Old [place] (myocardial infarction) 10/05/2019 10/05/2019 Hypertensive kidney disease [...] as of this encounter (statuses as of 01/01/2024) Immunizations Name Administration Dates Next Due COVID-19 mRNA, LNP-s, No Pre serve, 2-Dose Series (Next 1 Interactive) 10/10/2020,04/06/2020,03/16/2020 Pneumococcal Conjugate Vacc, 13 Valent (Prevnar) [...] 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 (at least 30 min prior to breakfast or other meds). Authorizing Provider: JUAN F ROSEN * Telephone Encounter - Nicol Wall CMA - 01/01/2024 8:58 AM ESTPending Prescriptions: Disp Refills Levothyroxine Sodium 75 MCG Oral Tablet (L*30 Tab*5 Sig: Take 1 Tablet by mouth in the morning. (at least 30 min prior to breakfast or other meds). * Telephone Encounter - Kimber Potter OSA - 12/31/2023 4:08 PM EST Did you pend patient's preferred pharmacy and medication before forwarding?yes Pharmacy: [facility], [address] [place] Pending Prescriptions: Disp Refills Levothyroxine Sodium 75 MCG Oral Tablet (*30 Tab*11 Sig: Take 1 Tablet by mouth in the morning. (at least 30 min prior to breakfast or other meds). Last Visit: 12/10/2023 (in office), Visit date not found (telemedicine) Next Visit: 03/16/2024 If no future appointments scheduled, and last appointment is greater than a year ago, please schedule patient for a follow-up appointment Last date the medication was ordered: 01.22.2023 Is this request for a controlled substance?No [...] Care Team (Late st Contact Info) Description 01/15/2024 10:40 AM EST Office Visit Neurology [facility] [place] [address] [place] [address] Brenda Walton MD [address] [place] [address] 03/16/2024 8:50 AM EST Office Visit Family Medicine [address] [place] [phone] Juan F [address] [place] [address] 07/28/2024 9:00 AM EDT Nurse Only Ancillary [address] [place] [address] [place], Nurse Annual Wellness [address] [place] [address] [place] [phone] Health Maintenance Due Date Last Done Comments Alpha-1 Antitrypsin 09[birth year]10/1953 DXA Scan 09/02/2020 09/02/2013, 10/11, 02/07/2009 *COPD SEVERITY VERIFIED BY PFT 08/23/2021 COVID-19 Vaccine ( season) 2023 11/25/2021, 01/17/2021, 10/10/2020, Additional history exists Influenza Vaccine (FLU shot) (#1) 2023 11/08/2022, 11/08/2022, 10/22/2022, Additional history exists Albumin/Creatinine Ratio 01/08/2024 023, 01/07/2022, 10/09/2020, Additional history exists CKD HGB USE SMARTSET 23394 01/08/202401/07, 01/07/2022, 01/07/2022, Additional history exists CKD PHOS USE SMARTSET 03849 01/08/202412/11, 01/07/2022, 10/09/2020, Additional history exists TSH 01/08/2024 01/07/2023, 06/0 09/2022, 01/07/2022, Additional history exists Adult Wellness Visit 07/26/2024 07/27/2023, 07/24/2022, 12/31/2020 Depression Screening 07/26/2024 07/27/2023 O2 ASSESSMENT COMPLETED IN PAST YEAR FOR COPD 12/09/2024 12/10/2023 DTap/Tdap Vaccines (2 - Td or Tdap) [...] filedocumented as of this encounter Care Teams Chiller Hand Relationship Specialty Start Date End Date Juan F Rosen DO [address] [place] [address] [place] [phone] PCP - General Internal Medicine 02/10/17 documented as of this encounter
--- OUTSIDE RECORDS SUMMARY | 2024-02-06 23:36 | External Medical Summary ---
Author Name Unknown Address Unknown Organization [id number]:[facility] [place] - [address] [place] [address] Laboratory Report Ordering Provider Test Date Status SHWETA CRAIN 01/15/2024 11:36:06 Final Observation Date Value Abnormality Reference (Units ) Status Folic Acid 01/15/2024 11:36:06 17.5 >4.5 (ng/ mL) Final Performing Location [facility] [place] - [address] [place] [address]
--- OUTSIDE RECORDS SUMMARY | 2024-02-06 23:36 | External Medical Summary ---
Author Name Unknown Address Unknown Organization K09:[facility] [place] [address] Laboratory Report Ordering Provider Test Date Status SHWETA CRAIN 01/15/2024 11:36:06 Final Observation Date Value Abnormality Reference (Units ) Status WBC, Total 01/15/2024 11:36:06 6.95 4.00-10.8 0 (K/uL) Final RBC 01/15/2024 11:36:06 4.16 3.85-5.15 (M/uL) Final Hemoglobin 01/15/2024 11:36:06 12.5 12.0-15.3 (g/dL) Final HCT 01/15/2024 11:36:06 38.3 36.0-45.2 (%) Final MCV 01/15/2024 11:36:06 92.1 81.5-97.5 (fL) Final MCH 01/15/2024 11:36:06 30.0 27.0-34.0 (pg) Final MCHC 01/15/2024 11:36:06 32.6 32.0-36.0 (g/dL) Final RDW 01/15/2024 11:36:06 13.3 11.5-15.5 (%) Final Platelets 01/15/2024 11:36:06 268 140-400 (K /uL) Final MPV 01/15/2024 11:36:06 8.6 6.6-11.1 ( fL) Final Performing Location [facility] [place] [address]
--- OUTSIDE RECORDS SUMMARY | 2024-02-06 23:36 | External Medical Summary | Summary of Care ---
Author Name Unknown Organization [facility] Address [address] [place] [address] Phone [phone] Care Team Providers Care Quality Assurance Supervisor Final Name Role Phone Roxanna Reaves DO Primary Care Provider [phone] Reason for Visit * Reason Onset Date Comments Test Results 01/18/2024 Encounter Details Date Type Department Care Team (Late st Contact Info) Description 01/18/2024 Telephone Family Medicine [address] [place] [phone] Roxanna Reaves DO [address] [place] [address] [place] [phone] Test Results Allergies Active Allergy Reactions Criticality [...] 1,000 mcgIndications:Vitamin B12 deficiency 1000 mcg IM [id number] 02/18/2024 01/18/2025 Active Vitamin B-12 (Cyanocobalamin) inj [...] 06/19/2020 10/09/2020 Overview: Per CKD protocol Old [place] (myocardial infarction) 10/05/2019 10/05/2019 Hypertensive kidney disease [...] Industry Job Start Date 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 * Telephone Encounter [...] 01/22/2024 9:20 AM EST Nurse Only Ancillary [address] [place] [address] Nurse [place] [address] [place] [address] 02/08/2024 8:45 AM EST Imaging Radiology [address] [place] [phone] 03/16/2024 8:50 AM EST Office Visit Family Medicine [address] [place] [phone] Roxanna Reaves, [address] [place] [address] 03/24/2024 1:00 PM EST Office Visit Neurology [facility] [address] [facility] [place] [address] Brenda Walton MD [address] [place] [address] 07/28/2024 9:00 AM EDT Nurse Only Ancillary [address] [place] [address] [place], Nurse [address] [place] [address] Scheduled Orders Name Type Priority Associated Diagnoses [...] Additional history exists CKD PHOS USE SMARTSET 70639 01/08/202412/11, 01/07/2022, 10/09/2020, Additional history exists Adult Wellness Visit 07/26/2024 07/27/2023, 07/24/2022, 12/31/2020 Depression Screening 07/26/2024 07/27/2023 CKD HGB USE SMARTSET 30191 01/14/202501/14, 01/15/2024, 01/07/2023, Additional history exists O2 [...] deficiencies documented in this encounter Care Teams Quality Assurance Supervisor Final Relationship Specialty Start Date End Date Roxanna Reaves DO [address] [place] [address] [place] [phone] PCP - General Internal Medicine 02/10/17 documented as of this encounter
--- OUTSIDE RECORDS SUMMARY | 2024-02-06 23:36 | External Medical Summary ---
Author Name Unknown Address Unknown Organization [id number]:[facility] [place] [address] [place] [address] Laboratory Report Ordering Provider Test Date Status SHWETA CRAIN 01/15/2024 11:36:06 Final Observation Date Value Abnormality Reference (Units ) Status Vitamin B12 01/15/2024 11:36:06 <150 Below low normal 2 32-1245 (pg/mL) Final Performing Location [facility] [place] [address] [place] [address]
--- OUTSIDE RECORDS SUMMARY | 2024-02-06 23:36 | External Medical Summary ---
Author Name Unknown Address Unknown Organization K01:[facility] [place] [address] [facility] [address] Laboratory Report Ordering Provider Test Date Status SILAS ROGEL 09/16/2023 09:26:54 Final Observation Date Value Abnormality Reference (Units ) Status Color of Urine by Auto 09/16/2023 09:26:54 Light Yellow Colorless, Light Yellow, Yellow, Dark Yellow Final Clarity, Urine 09/16/2023 09:26:54 Clear Clear Final Glucose [Mass/volume] in Urine by Automated test strip 09/16/2023 09:26:54 Negative Negative (mg/dL) Final Bilirubin.total [Presence] in Urine by Automated test strip 09/16/2023 09:26:54 Negative Negative Final Ketones [Mass/volume] in Urine by Automated test strip 09/16/2023 09:26:54 Negative Negative (mg/dL) Final Specific gravity, Urine 09/16/2023 09:26:54 1.018 1.003-1.030 Final Hemoglobin [Presence] in Urine by Automated test strip 09/16/2023 09:26:54 Negative Negative Final pH, Urine 09/16/2023 09:26:54 6.5 5.0-7.5 (Units) Final Protein [Mass/volume] in Urine by Automated test strip 09/16/2023 09:26:54 Trace Abnormal Negative (mg/dL) Final Urobilinogen [Mass/volume] in Urine by Automated test strip 09/16/2023 09:26:54 Normal Normal (mg/dL) Final Nitrite [Presence] in Urine by Automated test strip 09/16/2023 09:26:54 Negative Negative Final Leukocyte esterase [Presence] in Urine by Automated test strip 09/16/2023 09:26:54 Negative Negative Final Annotation Comment 09/16/2023 09:26:54 Final Screen negative - Microscopi c not performed. Performing Location LAB[facility]ATORY [facility] - [address] [facility] [address]
--- OUTSIDE RECORDS SUMMARY | 2024-02-06 23:36 | External Medical Summary | Summary of Care ---
Author Name Unknown Organization [facility] Address [address] [place] [address] Phone [phone] Care Team Providers Care Hand Upper And Bottom Lacer Name Role Phone Roxanna Reaves Primary Care Provider [phone] Reason for Referral * Precert (Within 10 days (routine)) - Authorized Specialty Diagnoses / Procedures Referred By Matthias t Referred To Contact Radiology Diagnoses Dementia associated with other underlying disease, without behavioral disturbance, psychotic disturbance, mood disturbance, or anxiety, unspecified dementia severity (HCC) Procedures MRI BRAIN W WO CONTRAST Brenda Walton MD [address] [facility] [place] [address] Phone: tel: fax: Referral ID Status Reason Start Date Expiration Date V isits Requested Visits Authorized [id number] Authorized 01/15/2024 999 999 Reason for Visit * Reason Comments NEW PATIENT Memory Loss * Evaluate & Treat - Unlimited Visits (Within 3 days (urgent)) - Authorized Specialty Diagnoses / Procedures Referred By Contamarjit t Referred To Contact Neurology Diagnoses Memory loss Jessika Daniel PA-C [address] [place] [address] [place] [address] Phone: tel: fax: Referral ID Status Reason Start Date Expiration Date Visits Requested Visits Authorized [id number] Authorized Specialty Services Required 4 [phone] Encounter Details Date Type Department Care Team (Late st Contact Info) Description 01/15/2024 10:40 AM EST Office Visit Neurology [facility] [place] [address] [facility] [place] [address] Brenda Walton MD [address] [place], [place] [address] Dementia associated with other underlying disease, without behavioral disturbance, psychotic disturbance, mood disturbance, or anxiety, unspecified dementia severity (HCC)*; Left carotid bruit Allergies Active Allergy Reactions Criticality Noted Date Comments Leticia Hives Low 12/21/2012 documented as of this encounter (statuses as of 01/15/2024) Medications Loperamide HCl 2 MG Oral Capsule [...] as of this encounter (statuses as of 01/15/2024) Active Problems Problem Noted Date Diagnosed Date [...] as of this encounter (statuses as of 01/15/2024) Resolved Problems Problem Noted Date Diagnosed Date Resolved Date COPD, 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 determined 08/21/2021 07/24/2022 Overview: Per COPD GOLD Classification ILD (interstitial lung disease) 08/21/2021 01/07/2023 Chronic kidney disease, stage 3b 06/19/2020 10/09/2020 Overview: Per CKD protocol Old IA (myocardial infarction) 10/05/2019 10/05/2019 Hypertensive kidney disease [...] as of this encounter (statuses as of 01/15/2024) Immunizations Name Administration Dates Next Due COVID-19 mRNA, LNP-s, No Pre serve, 2-Dose Series ([employer]) 10/10/2020,04/06/2020,03/16/2020 Pneumococcal Conjugate Vacc, 13 Valent (Prevnar) [...] 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 Not on file Not o n file 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 Not on file Not on file N ot on file documented as of this encounter Last Filed Vital Signs Vital Sign Reading Time Taken Comments Blood Pressure 120/58 01/15/2024 10:35 AM EST Pulse 68 01/15/2024 10:35 AM EST Temperature 36.1 C (97 F) 01/15/2024 10:35 AM EST Respiratory Rate 18 01/15/2024 10:35 AM EST Oxygen Saturation 93% 01/15/2024 10:35 AM EST Inhaled Oxygen Concentration - - Weight 62.1 kg (137 lb) 01/15/2024 10:35 AM EST Height - - Body Mass Index 25.68 07/27/2023 9:01 AM EDT documented in this encounter Progress Notes * Brenda Walton MD - 01/15/2024 11:30 AM EST CLINIC NOTES Neurology [place] [address] [place] [address] [address] [place] : 1935 NEUROLOGY OUTPATIENT NOTE 01/15/2024 HISTORY: The patient is referred for consultation by Dr. Reaves and Jessika Daniel, who will be receiving a copy of this note. Reason for consultation sudden decline in cognition. The patient is an 88-year-old right-handed female accompanied by her daughter and grandson she has had gradual onset of cognitive dysfunction for several years primarily manifested by forgetfulness misplacing things. All a long she has had some confusion about day or night but she has been able to live by herself. Beginning March fairly suddenly there is a marked decline by July she was no longer able to inclusion manager meds or her finances she would potentially have visual hallucinations or miss remember things she felt her granddaughter was in the house. She will call her daughter and ask for her mother's phone number there is no disorientation to person or place she no longer really cooks butshe is able to use a microwave and a toaster. She lives in his senior apartment she no longer drives she does not wander and has not had any falls. She shops with her daughter. She no difficulty withbathing and dressing daughter does her laundry. Her weight has been stable she has not had headaches daily she watches TV does word searches occasionally puzzles and reads. She walks in the halls at [facility] she participates with group activities. At 1 point she had a medical alert but she never used it never wore it and has not been falling so has discontinued her apartment does have someEmergency notifications. She has chronic diarrhea and because of that the family does not think it is reasonable for her to attend a day program. There is some difficulty with word finding. No history of head injury no family history of cognitive dysfunction none of her medicines were new or changed in dose when she was seen last Daughter lives about a mi away and sees her frequently and calls her frequently Past Medical History: Diagnosis Date Cervical cancer [...] COLITIS NONINFECTIOUS RADIATION Senile osteoporosis Urge incontinence Patient Active Problem List Diagnosis Acquired hypothyroidism [...] GOLD 2017 classification (HCC) Memory deficit Past Surgical History: Procedure Laterality Date APPENDECTOMY W/OTHER PROCEDURE age 42 CARDIAC CATH SCANNED RESULT 01/07/2013 minor irregularities COLONOSCOPY, DIAGNOSTIC (RECTUM) 2005 [facility] - unable to do due to scarring from radiation COLONOSCOPY, DIAGNOSTIC (RECTUM) 04/29/2005 radiation colitis and colonic stricture - Dr. Haney CORONARY ANGIOGRAPHY W/LEFT HEART CATH 01/07/2013 CORONARY ANGIOGRAPHY W/LEFT HEART CATH performed by Willy Prater MD at [facility] EGD, FLEXIBLE, DIAGNOSTIC 08/16/2007 biopsies--mild irritation, negative for H.Pylori EGD, FLEXIBLE, DIAGNOSTIC 10/24/2019 esophagitis, gastric ulcers, repeat 8 wks / ESOPHAGOGASTRODUODENOSCOPY (EGD), FLEXIBLE, TRANSORAL, DIAGNOSTIC performed by Estelita Barrett DO at ENDOSCOPY [facility]O BARIUM ENEMA W AIR 2005 [facility] - normal LIGATE/CUT OVIDUCT(S) age 42 REMOVAL OF OVARY/OVIDUCT(S) 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 Tobacco Use Smoking status: Former Current packs/day: 0.00 Average packs/day: 1.5 packs/day for 35.0 years (52.5 ttl pk-yrs) Types: Cigarettes Start date: [birth year]09/1953 Quit date: 02/09/1990 Years since quittin.9 Smokeless tobacco: Never Vaping Use Vaping status: [...] Stability Do you currently live in a [place] or have no steady place to sleep [...] - for ages0-17 years): Not on file Family History Problem Relation Name Age of Onset Heart Disorder Mother CHF age 81 Other (OA) Mother Other (accidental) Father age 59 Other (Brain aneurysm) Sister Belinda Heart attack Sister Jessica Fatal IA in her 50s Other (Natural causes) Brother Charly Heart attack Brother Rolly Cardiac arrest Heart attack Brother Ray Lung Disorder Brother Maikol On oxygen Heart Disorder Brother Isai [place] in 50's Other (Natural causes) Sister Alda in her 80s Current Outpatient Medications Medication Sig Dispense Refill [...] breakfast or other meds). 30 Tablet 5 No current facility-administered medications for this visit. Review of patient's allergies indicates: Allergen Reactions Leticia Hives Results for orders placed or performed in visit on 01/07/23 CBC Result Value Ref Range WBC 6.20 4.00 - 10.80 K/uL RBC 4.40 3.85 - 5.15 M/uL HGB 12.7 12.0 - 15.3 g/dL HCT 41.0 36.0 - 45.2 % MCV 93.2 81.5 - 97.5 fL MCH 28.9 27.0 - 34.0 pg MCHC 31.0 32.0 - 36.0 g/dL RDW 13.6 11.5 - 15.5 % PLT 308 140 - 400 K/uL MPV 9.3 6.6 - 11.1 fL nRBCs 0 <=0 /100 WBCs Results for orders placed or performed in visit on 08/05/23 BASIC METABOLIC PANEL Result Value Ref Range BUN 15 6 - 20 mg/dL CREATININE 1.3 (H) 0.5 - 1.0 mg/dL EGFR 40 (L) >=60 mL/min SODIUM 137 135 - 146 mmol/L POTASSIUM 4.4 3.5 - 5.1 mmol/L CHLORIDE 101 98 - 107 mmol/L CO2 24 22 - 32 mmol/L ANION GAP 12 7 - 15 mmol/L GLUCOSE 100 70 - 120 mg/dL CALCIUM 9.1 8.4 - 10.2 mg/dL Results for orders placed or performed in visit on 02/07/16 LIPID PANEL Result Value Ref Range HOURS FASTING 12 hours Triglycerides 187 <200 mg/dL Cholesterol 145 <200 mg/dL HDL Cholesterol 52 >39 mg/dL Cholesterol-HDL Ratio 2.8 LDL Cholesterol 56 0 - 129 mg/dL Results for orders placed or performed in visit on 01/07/23 LIPID PANEL WITH DIRECT LDL IF TG IS HIGH Result Value Ref Range Triglycerides 210 (H) <=174 mg/dL Cholesterol 152 <200 mg/dL HDL Cholesterol 54 >49 mg/dL Non-HDL Cholesterol 98 <=159 mg/dL No results found for: "HEMOGLOBIN A1C" Lab Results Component Value Date/Time TSH - [facility] 1.05 01/07/2023 10:00 AM TSH - [facility] 0.62 07/17/2022 10:01 AM TSH - [facility] 7.88 (H) 01/07/2022 02:29 PM TSH - [facility] 4.08 10/05/2019 03:07 PM TSH - [facility] 3.04 10/18/2018 09:32 AM TSH - [facility] 1.53 07/21/2018 01:43 PM No results found for: "KRISHAN" Results for orders placed or performed in visit on 04/15/12 VITAMIN B12 Result Value Ref Range Vitamin B12 414 211 - 946 pg/mL No results found for: "IRJL91ZBC6" No results found for: "ZJBZ27KDF1" No results found for: "[id number]" 25OH VITAMIN D TOTAL (ng/mL) Date Value 11/29/2008 45.0 Vitamin D Level Interpretation deficient: <20 ng/ml insufficient: 20-30 ng/ml normal: 31-100 ng/ml REVIEW OF SYSTEMS: As above PHYSICAL EXAM: BP 120/58 | Pulse 68 | Temp 36.1 C (97 F) | Resp 18 | Wt 62.1 kg (137 lb) | SrM231% | BMI 25.68 kg/m | BSA 1.64 m The patient is awake and alert her spontaneous speech and language are unremarkable and her affect is appropriate on mini-mental status testing she scores a 20/30. What was the mini mental exam score? 20 What is today's date? 0 What is today's year? 0 What is the month? 0 February What day is today? 0 Thursday What season is it? 0 spring What is the name of this hospital/clinic? 0 What floor are we on? 0 first floor What town/city are we in? 1 [place] are [place] in? [place] state [place] in? 1 [place] Did the patient repeat ball? 1 Did the patient repeat flag? 1 Did the patient repeat tree? 1 Ask the patient to begin with 100 and count backwards by 7. 1 Was the patient response 93. 1 Was the patient response 86? 1 Was the response 79? 0 75 Did the patient respond D? 1 Did the patient respond L? 1 Did the patient respond R? 1 Did the patient respond O? 1 Did the patient respond W? 1 Did the patient respond ball? 0 Did the patient respond flag? 0 Did the patient respond tree? 0 Show the patient a watch and ask what it is. 1 Show the patient a pencil and ask what it is. 1 Ask the patient to repeat No ifs, ands or buts. 1 Patient takes paper in hand 1 Patient folds paper in half [address] paper on the floor 1 Hold card "Close eyes". Ask pt. to read and do what it says 1 Give pt. paper and ask to write a sentence. 1 Show pt. drawing of intersecting pentagons. Ask pt. to draw 1 There is left carotid bruit heart is regular pupils are postsurgical but there appeared to be recurrent cataracts normal goldberg motility facial symmetry there is a minor decrease in blink frequency no resting tremor cogwheel rigidity. . Motor 5/5 no drift normal rapid alternating movements symmetric reflexes downgoing toes. Sqonat-gs-metv and phlz-zr-ymdp are normal gait is normal for age IMPRESSION: Baseline mild cognitive impairment with a sudden decline in March recommend MRI brain rule out infarct rule out space-occupying lesion related to history of cancer appropriate labs ordered to rule out a toxic metabolic etiology We talked about a day program but they do not think that is reasonable given her chronic diarrhea she should try to remain physically and mentally active and avoid napping during the day. Do not think she needs anything for hallucinations while she may occasionally hallucinating she is more confused about details than she is hallucinating further evaluation will depend on the results of the aforem entioned certainly Aricept would not be a good idea due to patient's chronic diarrhea. Namenda could be an option. Left carotid bruit recommend carotid ultrasound return in 8 weeks Brenda Walton MD 01/15/2024 11:30 AM documented in this encounter Plan of Treatment Upcoming Encounters Date Type Department Care Team (Late st Contact Info) Description 02/08/2024 8:45 AM EST Imaging Radiology [address] [place] [phone] 03/16/2024 8:50 AM EST Office Visit Family Medicine [address] [place] [phone] Roxanna Reaves, [address] [place] [address] 07/25/2024 8:40 AM EDT Office Visit Neurology [address] [place] [address] Brenda Walton MD [address] [facility] [place] [address] 07/28/2024 9:00 AM EDT Nurse Only Ancillary [address] [place] [address] [place], Nurse Annual [address] [place] [address] Pending Results Name Type Priority Associated Diagnoses Date /Time VITAMIN B12 Lab Routine Dementia associated with other underlying disease, without behavioral disturbance, psychotic disturbance, mood disturbance, or anxiety, unspecified dementia severity (HCC) 01/15/2024 11:36 AM EST FOLIC ACID Lab Routine Dementia associated with other underlying disease, without behavioral disturbance, psychotic disturbance, mood disturbance, or anxiety, unspecified dementia severity (HCC) 01/15/2024 11:36 AM EST TSH Lab Routine Dementia associated with other underlying disease, without behavioral disturbance, psychotic disturbance, mood disturbance, or anxiety, unspecified dementia severity (HCC) 01/15/2024 11:36 AM EST COMPREHENSIVE METABOLIC PANEL Lab Routine Dementia associated with other underlying disease, without behavioral disturbance, psychotic disturbance, mood disturbance, or anxiety, unspecified dementia severity (HCC) 01/15/2024 11:36 AM EST Scheduled Orders Name Type Priority Associated Diagnoses Orde r Schedule MRI BRAIN W WO CONTRAST Medical Imaging Routine Dementia associated with other underlying disease, without behavioral disturbance, psychotic disturbance, mood disturbance, or anxiety, unspecified dementia severity (HCC) Ordered: 01/15/2024 VASC DUPLEX CAROTID BILAT Medical Imaging Routine Left carotid bruit Ordered: 01/15/2024 Health Maintenance Due Date Last Done Comments Alpha-1 Antitrypsin 09/10/1953 DXA Scan 09/02/2020 09/02/2013, 10/11, 02/07/2009 *COPD SEVERITY VERIFIED BY PFT 08/23/2021 COVID-19 Vaccine ( season) 2023 11/25/2021, 01/17/2021, 10/10/2020, Additional history exists Influenza Vaccine (FLU shot) (#1) 2023 11/08/2022, 11/08/2022, 10/22/2022, Additional history exists Albumin/Creatinine Ratio 01/08/2024 023, 01/07/2022, 10/09/2020, Additional history exists CKD PHOS USE SMARTSET 37982 01/08/202412/11, 01/07/2022, 10/09/2020, Additional history exists TSH 01/08/2024 01/07/2023, 06/09/2022, 01/07/2022, Additional history exists Adult Wellness Visit 07/26/2024 07/27/2023, 07/24/2022, 12/31/2020 Depression Screening 07/26/2024 07/27/2023 CKD HGB USE SMARTSET 59606 01/14/202501/14, 01/15/2024, 01/07/2023, Additional history exists O2 ASSESSMENT COMPLETED IN PAST YEAR FOR COPD 01/14/2025 01/15/2024 DTap/Tdap Vaccines (2 - Td or Tdap) [...] Not on filedocumented as of this encounter Procedures Procedure Name Priority Date/Time Associated Diagnosis Comments DIFFERENTIAL, AUTOMATED Routine 01/15/2024 11:36 AM EST Dementia associated with other underlying disease, without behavioral disturbance, psychotic disturbance, mood disturbance, or anxiety, unspecified dementia severity (HCC) CBC Routine 01/15/2024 11:36 AM EST Dementia associated with other underlying disease, without behavioral disturbance, psychotic disturbance, mood disturbance, or anxiety, unspecified dementia severity (HCC) CBC Routine 01/15/2024 11:36 AM EST Dementia associated with other underlying disease, without behavioral disturbance, psychotic disturbance, mood disturbance, or anxiety, unspecified dementia severity (HCC) documented in this encounter Results * DIFFERENTIAL, AUTOMATED (01/15/2024 11:36 AM EST) WBC 6.95 4.00 - 10.80 K/uL 01/15/2024 11:41 AM EST [facility] 56-02 Neutrophils % 66.6 40.0 - 75.0 % 01/15/2024 11:41 AM EST [facility] 56-02 Lymphocytes % 23.5 18.0 - 42.0 % 01/15/2024 11:41 AM EST [facility] 56-02 Monocytes % 6.9 1.0 - 11.0 % 01/15/2024 11:41 AM EST [facility] 56-02 Eosinophils % 2.3 0.0 - 6.0 % 01/15/2024 11:41 AM EST [facility] 56-02 Basophils % 0.7 0.0 - 2.0 % 01/15/2024 11:41 AM EST [facility] 56-02 Absolute Neutrophils 4.63 1.80 - 7.70 K/uL 01/15/2024 11:41 AM EST [facility] 56-02 Absolute Lymphocytes 1.63 1.00 - 4.80 K/ul 01/15/2024 11:41 AM EST [facility] 56 Absolute Monocytes 0.48 0.00 - 1.10 K/uL 01/15/2024 11:41 AM [facility] 5602 Absolute Eosinophils 0.16 0.00 - 0.70 K/uL 01/15/2024 11:41 AM [facility] 5602 Absolute Basophils 0.05 0.00 - 0.20 K/uL 01/15/2024 11:41 AM [facility] 56 Blood Venous blood specimen / Unknown Venipuncture / Unknown 01/15/2024 11:36 AM EST 01/15/2024 11:36 AM EST us Brenda Walton MD LAB BLOOD ORDERABLES Jasmyne mcelroy Result [place] [address] [place] [address] * CBC (01/15/2024 11:36 AM EST) WBC 6.95 4.00 - 10.80 K/uL 01/15/2024 11:[address] RBC 4.16 3.85 - 5.15 M/uL 01/15/2024 11:[address] HGB 12.5 12.0 - 15.3 g/dL 01/15/2024 11:[address] HCT 38.3 36.0 - 45.2 % 01/15/2024 11:[address] MCV 92.1 81.5 - 97.5 fL 01/15/2024 11:[address] MCH 30.0 27.0 - 34.0 pg 01/15/2024 11:41 AM [facility] 56 MCHC 32.6 32.0 - 36.0 g/dL 01/15/2024 11:41 AM [facility] 56 RDW 13.3 11.5 - 15.5 % 01/15/2024 11:41 AM [facility] 56 PLT 268 140 - 400 K/uL 01/15/2024 11:41 AM EST [facility] MPV 8.6 6.6 - 11.1 fL 01/15/2024 11:41 AM EST [facility] Blood Venous blood specimen / Unknown Venipuncture / Unknown 01/15/2024 11:36 AM EST 01/15/2024 11:36 AM EST Brenda Walton MD LAB BLOOD ORDERABLES Jasmyne l Result [facility] [address] [place] [address] documented in this encounter Visit Diagnoses Diagnosis Dementia associated with other underlying disease, without behavioral disturbance, psychotic disturbance, mood disturbance, or anxiety, unspecified dementia severity (HCC)- Primary Left carotid bruit Other symptoms involving cardiovascular system documented in this encounter Care Teams Hand Upper And Bottom Lacer Relationship Specialty Start Date End Date Roxanna Reaves DO [address] [place] [address] [place] [address] PCP - General Internal Medicine 02/10/17 documented as of this encounter
--- OUTSIDE RECORDS SUMMARY | 2024-02-06 23:36 | External Medical Summary ---
Author Name Unknown Address Unknown Organization K09:[facility] [place] [address] Laboratory Report Ordering Provider Test Date Status SHWETA CRAIN 01/15/2024 11:36:06 Final Observation Date Value Abnormality Reference (Units ) Status SYNC LEUKOCYTES IN BLOOD BY AUTOMATED COUNT 01/15/2024 11:36:06 6.95 4.00-10.80 (K/uL) Final Segs 01/15/2024 11:36:06 66.6 40.0-75.0 (%) Final Lymphs % 01/15/2024 11:36:06 23.5 18.0-42.0 (%) Final Monos 01/15/2024 11:36:06 6.9 1.0-11.0 (%) Final Eosinophils 01/15/2024 11:36:06 2.3 0.0-6.0 (%) Final Basos 01/15/2024 11:36:06 0.7 0.0-2.0 (%) Final Absolute Segs 01/15/2024 11:36:06 4.63 1.80-7.70 (K/uL) Final Lymphs, absolute 01/15/2024 11:36:06 1.63 1.00-4.80 (K/ul) Final Monos, Abs 01/15/2024 11:36:06 0.48 0.00-1.10 (K/uL) Final Eos, Abs 01/15/2024 11:36:06 0.16 0.00-0.70 (K/uL) Final Basos, Abs 01/15/2024 11:36:06 0.05 0.00-0.20 (K/uL) Final Performing Location [facility] [place] [address]
--- OUTSIDE RECORDS SUMMARY | 2024-02-06 23:36 | External Medical Summary ---
Author Name Unknown Address Unknown Organization [id number]:[facility] [place] [address] [facility] [address] Laboratory Report Ordering Provider Test Date Status SHWETA CRAIN 01/15/2024 11:36:06 Final Observation Date Value Abnormality Reference (Units ) Status TSH 01/15/2024 11:36:06 0.49 0.27-4.20 (uIU/mL) Final Performing Location [facility] - [address] [facility] [address]
--- OUTSIDE RECORDS SUMMARY | 2024-02-06 23:36 | External Medical Summary | Summary of Care ---
Author Name Unknown Organization [facility] Address [address] [place] [address] Phone [phone] Care Team Providers Care Drafter Automotive Design Name Role Phone ReavesEduardaRoxannakelli Barrera Primary Care Provider [phone] Reason for Visit * Reason Comments Outpatient Testing Encounter Details Date Type Department Care Team (Late st Contact Info) Description 01/15/2024 11:30 AM EST Laboratory Laboratory [facility] [address] [place] [phone] [facility] Scenery [address] [place] [address] Arrived Allergies Active Allergy Reactions Criticality Noted Date [...] 06/19/2020 10/09/2020 Overview: Per CKD protocol Old [place] (myocardial infarction) 10/05/2019 10/05/2019 Hypertensive kidney disease [...] 07/27/2023 Does the household have a re lar source of income? 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 Not on file Not on file N ot on file documented as of this encounter Plan of Treatment Upcoming Encounters Date Type Department Care Team (Late st Contact Info) Description 02/08/2024 8:45 AM EST Imaging Radiology [address] [place] [address] 03/16/2024 8:50 AM EST Office Visit Family Medicine [address] [place] [phone] [address] [place] [address] 07/25/2024 8:40 AM EDT Office Visit Neurology [facility] [place] [address] Brenda Walton MD [address] [place] [address] 07/28/2024 9:00 AM EDT Nurse Only Ancillary [address] [place] [address] [place], Nurse [address] [place] [address] Health Maintenance Due Date Last Done Comments Alpha-1 Antitrypsin 09/10/1953 DXA Scan 09/02/2020 09/02/2013, 10/11, 02/07/2009 *COPD SEVERITY VERIFIED BY PFT 08/23/2021 COVID-19 Vaccine ( season) 2023 11/25/2021, 01/17/2021, 10/10/2020, Additional history exists Influenza Vaccine (FLU shot) (#1) 2023 11/08/2022, 11/08/2022, 10/22/2022, Additional history exists Albumin/Creatinine Ratio 01/08/2024 023, 01/07/2022, 10/09/2020, Additional history exists CKD PHOS USE SMARTSET 52887 01/08/202412/113, 01/07/2022, 10/09/2020, Additional history exists TSH 01/08/2024 01/07/2023, 09/2022, 01/07/2022, Additional history exists Adult Wellness Visit 07/26/2024 07/27/2023, 07/24/2022, 12/31/2020 Depression Screening 07/26/2024 07/27/2023 CKD HGB USE SMARTSET 94928 01/14/202501/14, 01/15/2024, 01/07/2023, Additional history exists O2 [...] filedocumented as of this encounter Care Teams Drafter Automotive Design Relationship Specialty Start Date End Date Roxanna Reaves DO [address] [place] [address] [place] [address] PCP - General Internal Medicine 02/10/17 documented as of this encounter
--- OUTSIDE RECORDS SUMMARY | 2024-02-06 23:36 | External Medical Summary | Summary of Care ---
Author Name Unknown Organization [facility] Address [address] [facility] [place] [address] Phone [phone] Care Team Providers Care Business Objects Consultant Name Role Phone ReavesEduardaRoxannakelli Barrera Primary Care Provider + [phone] Reason for Referral * Evaluate & Treat - Unlimited Visits (Within 3 days (urgent)) - Authorized Specialty Diagnoses / Procedures Referred By Contamarjit t Referred To Contact Neurology Diagnoses Memory loss Jessika Daniel PA-C [address] [place] [address] [place] [address] Referral ID Status Reason Start Date Expiration Date Visits Requested Visits Authorized [id number] Authorized Specialty Services Required 4 [phone] Question Answer Referral Priority Within 3 days (urgent) Where should this appointment be scheduled? [facility] Is this referral being placed for insurance purposes ONLY No, patient needs appointment [facility] NEUROLOGY REFERRAL QUESTIONS Memory/Cognition Comments MMSE 15 - 4 months ago was 26. Memory issues - getting far worse Reason for Visit * Reason Comments Re-Check Encounter Details Date Type Department Care Team (Late st Contact Info) Description 12/10/2023 9:40 AM EDT Office Visit Family Medicine [address] [place] [phone] Jessika Daniel PA-C [address] [place] [address] [place] [address] Memory loss* Allergies Active Allergy Reactions Criticality Noted Date Comments Leticia Awad 12/21/2012 documented as of this encounter (statuses as of 12/10/2023) Medications Medication Sig Dispensed Refills Start Date [...] 09/22/2023 Active Lisinopril 10 MG Oral Tablet (Prinivil)Indication s:Essential hypertension with goal blood pressure less than 140/90 Take 1 Tablet by mouth in the morning. 90 Tablet 3 11/05/2023 Active Atorvastatin Calcium 10 MG Oral Tablet (Lipitor)Indications :Dyslipidemia, goal LDL below 100 TAKE 1 TABLET BY MOUTH ON THURSDAY, THURSDAY, AND THURSDAY 45 Tablet 3 12/03/2023 Active documented as of this encounter (statuses as of 12/10/2023) Active Problems Problem Noted Date Diagnosed Date [...] as of this encounter (statuses as of 12/10/2023) Resolved Problems Problem Noted Date Diagnosed Date [...] as of this encounter (statuses as of 12/10/2023) Immunizations Name Administration Dates Next Due COVID-19 [...] Sign Reading Time Taken Comments Blood Pressure 114/62 12/10/2023 9:23 AM EDT Pulse 82 12/10/2023 9:23 AM EDT Temperature 36.2 C (97.1 F) 12/10/2023 9:23 AM ED T Respiratory Rate - - Oxygen Saturation 94% 12/10/2023 9:23 AM EDT Inhaled Oxygen Concentration - - Weight 62.6 kg (138 lb) 12/10/2023 9:23 AM EDT Height - - Body Mass Index 25.86 07/27/2023 9:01 AM EDT documented in this encounter Progress Notes * Jessika Daniel PA-C - 12/10/2023 9:26 AM EDT Nursing Notes: Shantal Fountain LPN 12/10/23 0924 Sign at exiting of workspace Very confused now. Memory is bad. Has been getting worse over the last 2 months. Didn't know she went to the grocery store yesterday. Lives alone, in [facility].. Not any harm to self at this point, doesn't cook on stove. Calls daughter at 3 AM thinking its afternoon. Anything she can take for memory? Confused with meds(daughter now controls), days & nights, losing things, forgetting things. Pt here today with family. Pt has been very confused over the past couple months. She lives along in [facility]. She is confused with time and place. She is losing things, forgetting things. Sheforgot she went to the grocery store yesterday. Last MMSE was 26 - 4 months ago. Daughter takes care of bills, medicine. Pt doesn't use stove to cook. Family is with her daily. Review of patient's allergies indicates: Allergen Reactions Leticia Hives Current Outpatient Medications Medication Sig Dispense Refill Loperamide HCl 2 MG Oral Capsule (Imodium) 2 capsules in the morning, then 1 capsule after each loose bowel movement, up to 8 capsules per day. 240 Capsule 1 Levothyroxine Sodium 75 MCG Oral Tablet (Levoxyl) Take 1 Tablet by mouth in the morning. (at least 30 min prior to breakfast or other meds). 30 Tablet 11 Metoprolol Succinate ER 25 MG Oral Tablet [...] THURSDAY, THURSDAY, AND THURSDAY 45 Tablet 3 No current facility-administered medications for this visit. 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 No mold. as of 1989 Social Determinants of Health Financial Resource Strain: Low Risk (07/27/2023) Financial [...] Stability Do you currently live in a chcf or have no steady place to sleep [...] - for ages0-17 years): Not on file O:Blood pressure 114/62, pulse 82, temperature 36.2 C (97.1 F), temperature source Tympanic, weight 62.6 kg (138 lb), SpO2 94%. GENERAL: alert, healthy, and no distress A:Memory loss (Primary) - ADULT NEUROLOGY REFERRAL OP Will refer to neuro urgently. Any questions/problems, please call. If anything changes, worsens, develops new sx, please call [facility]. Follow Up: Return if symptoms worsen or fail to improve. Jessika Daniel PA-C documented in this encounter Nursing Notes * Shantal Fountain LPN - 12/10/2023 9:21 AM EDT Very confused now. Memory is bad. Has been getting worse over the last 2 months. Didn't know she went to the grocery store yesterday. Lives alone, in [facility].. Not any harm to self at this point, doesn't cook on stove. Calls daughter at 3 AM thinking its afternoon. Anything she can take for memory? Confused with meds(daughter now controls), days & nights, losing things, forgetting things. documented in this encounter Plan of Treatment Upcoming Encounters Date Type Department Care Team (Late st Contact Info) Description 12/18/2023 10:40 AM EST Office Visit Neurology [facility] [address] [facility] [place] [address] Power [place], [address] [facility] [place] [address] 03/16/2024 8:50 AM EST Office Visit Family Medicine [address] [place] [phone] Roxanna Reaves, [address] [place] [address] 07/28/2024 9:00 AM EDT Nurse Only Ancillary [address] [place] [address] [place], Nurse Annual Wellness [address] [place] [address] [place] [address] Scheduled Referrals Name Type Priority Associated Diagnoses Orde r Schedule ADULT NEUROLOGY REFERRAL OP Referral Within 3 days (urgent) Memory loss Ordered: 12/10/2023 Health Maintenance Due Date Last Done Comments Alpha-1 Antitrypsin 09/10/1953 DXA Scan 09/02/2020 09/02/2013, 10/11, 02/07/2009 *COPD SEVERITY VERIFIED BY PFT 08/23/2021 COVID-19 Vaccine ( season) 2023 11/25/2021, 01/17/2021, 10/10/2020, Additional history exists Influenza Vaccine (FLU shot) (#1) 2023 11/08/2022, 11/08/2022, 10/22/2022, Additional history exists Albumin/Creatinine Ratio 01/08/2024 023, 01/07/2022, 10/09/2020, Additional history exists CKD HGB USE SMARTSET 46860 01/08/202401/07, 01/07/2022, 01/07/2022, Additional history exists CKD PHOS USE SMARTSET 92506 01/08/202412/11, 01/07/2022, 10/09/2020, Additional history exists TSH [...] as of this encounter Visit Diagnoses Diagnosis Memory loss- Primary documented in this encounter Care Teams Business Objects Consultant Relationship Specialty Start Date End Date Roxanna Reaves DO [address] [place] [address] [place] [address] PCP - General Internal Medicine 02/10/17 documented as of this encounter
--- OUTSIDE RECORDS SUMMARY | 2024-02-06 23:36 | External Medical Summary | Summary of Care ---
Author Name Unknown Organization [facility] Address [address] [facility] [place] [address] Phone [phone] Care Team Providers Care Locomotive Inspector Name Role Phone ReavesRoxanna alonzo Primary Care Provider [phone] Encounter Details Date Type Department Care Team (Late st Contact Info) Description 09/16/2023 Orders Only PATIENT PORTAL DO NOT DELETE THIS DEPT USED BY [place] [id number] Allergies Active Allergy Reactions Criticality Noted Date Comments Leticia Sobeida Low 12/21/2012 documented as of this encounter (statuses as of 09/16/2023) Medications Medication Sig Dispensed Refills Start Date [...] Tablet Extended Release 24 Hour (toPROL XL)Indications:Essen tianavi hypertension with goal blood pressure less than 140/90 Take 1 Tablet by mouth in the morning. In the morning.. 90 Tablet 1 09/10/2023 Active documented as of this encounter (statuses as of 09/16/2023) Active Problems Problem Noted Date Diagnosed Date [...] as of this encounter (statuses as of 09/16/2023) Resolved Problems Problem Noted Date Diagnosed Date Resolved Date COPD, 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 determined 08/21/2021 07/24/2022 Overview: Per COPD GOLD Classification ILD (interstitial lung disease) 08/21/2021 01/07/2023 Chronic kidney disease, stage 3b 06/19/2020 10/09/2020 Overview: Per CKD protocol Old [place] (myocardial infarction) 10/05/2019 10/05/2019 Hypertensive kidney disease [...] as of this encounter (statuses as of 09/16/2023) Immunizations Name Administration Dates Next Due COVID-19 mRNA, LNP-s, No Pre serve, 2-Dose Series ([employer]) 10/10/2020,04/06/2020,03/16/2020 Pneumococcal Conjugate Vacc, 13 Valent (Prevnar) [...] 8:50 AM EST Office Visit Family Medicine [address] [place] [phone] Roxanna Reaves, [address] [place] [address] 07/28/2024 9:00 AM EDT Nurse Only Ancillary [address] [place] [address] [place], Nurse Annual Wellness [address] [place] [address] [place] [address] Health Maintenance Due Date Last Done Comments Alpha-1 Antitrypsin 09/10/1953 DXA Scan 09/02/2020 09/02/2013, 10/11, 02/07/2009 *COPD SEVERITY VERIFIED BY PFT 08/23/2021 COVID-19 Vaccine ( season) 2022 11/25/2021, 01/17/2021, 10/10/2020, Additional history exists Influenza Vaccine (FLU shot) (#1) 2023 11/08/2022, 11/08/2022, 10/22/2022, Additional history exists Albumin/Creatinine Ratio 01/08/2024 023, 01/07/2022, 10/09/2020, Additional history exists CKD HGB USE SMARTSET 34472 01/08/202401/07, 01/07/2022, 01/07/2022, Additional history exists CKD PHOS USE SMARTSET 45904 01/08/202412/11, 01/07/2022, 10/09/2020, Additional history exists TSH [...] filedocumented as of this encounter Care Teams Locomotive Inspector Relationship Specialty Start Date End Date Roxanna Reaves DO [address] [place] [address] [place] [address] PCP - General Internal Medicine 02/10/17 documented as of this encounter
--- OUTSIDE RECORDS SUMMARY | 2024-02-06 23:36 | External Medical Summary | Summary of Care ---
Author Name Unknown Organization [facility] Address [address] [place] [address] Phone [phone] Care Team Providers Care Manager Rehab Name Role Phone Juan F Rosen DO Primary Care Provider Reason for Visit * Reason Onset Date Comments Medication Refill 11/05/2023 Encounter Details Date Type Department Care Team (Late st Contact Info) Description 11/05/2023 Refill Family Medicine [address] [place] [phone] Juan F Rosen DO [address] [place] [address] [place] [address] Essential hypertension with goal blood pressure less than 140/90 Allergies Active Allergy Reactions Criticality Noted Date Comments Leticia Hives Low 12/21/2012 documented as of this encounter (statuses as of 11/05/2023) Medications Medication Sig Dispensed Refills Start Date [...] AND THURSDAY 45 Tablet 3 11/07/2022 Active Levothyroxine Sodium 75 MCG Oral Tablet [...] the morning. 90 Tablet 3 11/05/2023 Active Lisinopril 10 MG Oral Tablet (Prinivil)Indicati ons:Essential hypertension with goal blood pressure less than 140/90 Take 1 Tablet by mouth in the morning. 90 Tablet 3 12/08/2022 4 Discontinue d(Refill) documented as of this encounter (statuses as of 11/05/2023) Active Problems Problem Noted Date Diagnosed Date [...] as of this encounter (statuses as of 11/05/2023) Resolved Problems Problem Noted Date Diagnosed Date Resolved Date COPD, 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 determined 08/21/2021 07/24/2022 Overview: Per COPD GOLD Classification ILD (interstitial lung disease) 08/21/2021 01/07/2023 Chronic kidney disease, stage 3b 06/19/2020 10/09/2020 Overview: Per CKD protocol Old [place] (myocardial infarction) 10/05/2019 10/05/2019 Hypertensive kidney disease [...] as of this encounter (statuses as of 11/05/2023) Immunizations Name Administration Dates Next Due COVID-19 mRNA, LNP-s, No Pre serve, 2-Dose Series ([employer]) 10/10/2020,04/06/2020,03/16/2020 Pneumococcal Conjugate Vacc, 13 Valent (Prevnar) 07/24/2014 Pneumococcal Polysaccharide PPV23 (Pneumovax) 02/09/2003 Season Influenza, Quad, PF, Adjuvanted, 65+ Yrs, IM (FLUAD) 11/07/2019 Seasonal Influenza, PF, 6 M & above, IM , (FluLaval or Fluzone) 12/10/2017 Seasonal Influenza, Quadriva lent, No Preserve, IM 11/08/2022,12/08/2016,11/23/2014 Seasonal Influenza, Trivalen t, (IIV3), with Preserv, (Fluzone) 11/10/2015,11/09/2013,11/09/2012,11/09,12/14/2010,11/09/2009 Seasonal Influenza, Trivalen t, Adjuvanted, 65+ YRS, [...] Encounter - Juan F Rosen DO - 11/05/2023 12:44 PM EDTSigned Prescriptions: Disp Refills Lisinopril 10 MG Oral Tablet (Prinivil) 90 Tab*3 Sig: Take 1 Tablet by mouth in the morning. Authorizing Provider: JUAN F ROSEN * Telephone Encounter - Lesia Burns CMA - 11/05/2023 12:19 PM EDTPending Prescriptions: Disp Refills Lisinopril 10 MG Oral Tablet (Prinivil) 90 Tab*3 Sig: Take 1 Tablet by mouth in the morning. * Telephone Encounter - Yeni Lake OSA - 11/05/2023 11:37 AM EDT Did you pend patient's preferred pharmacy and medication before forwarding?yes Pharmacy: [facility], [address] [place] Pending Prescriptions: Disp Refills Lisinopril 10 MG Oral Tablet (Prinivil) 90 Tab*3 Sig: Take 1 Tablet by mouth in the morning. Last Visit: 08/05/2023 (in office), Visit date not found (telemedicine) Next Visit: 03/16/2024 If no future appointments scheduled, and last appointment is greater than a year ago, please schedule patient for a follow-up appointment Last date the medication was ordered: 12.08.22 Is this request for a controlled substance?No [...] 8:50 AM EST Office Visit Family Medicine [address] [place] [phone] Juan F Rosen[address] [place] [address] 07/28/2024 9:00 AM EDT Nurse Only Ancillary [address] [place] [address] [place], Nurse Annual Wellness [address] [place] [address] [place] [address] Health Maintenance Due Date Last Done Comments Alpha-1 Antitrypsin 09/10/1953 DXA Scan 09/02/2020 09/02/2013, 10/11, 02/07/2009 *COPD SEVERITY VERIFIED BY PFT 08/23/2021 COVID-19 Vaccine ( season) 2023 11/25/2021, 01/17/2021, 10/10/2020, Additional history exists Influenza Vaccine (FLU shot) (#1) 2023 11/08/2022, 11/08/2022, 10/22/2022, Additional history exists Albumin/Creatinine Ratio 01/08/2024 023, 01/07/2022, 10/09/2020, Additional history exists CKD HGB USE SMARTSET 95841 01/08/202401/07, 01/07/2022, 01/07/2022, Additional history exists CKD PHOS USE SMARTSET 66773 01/08/202412/11, 01/07/2022, 10/09/2020, Additional history exists TSH [...] as of this encounter Visit Diagnoses Diagnosis Essential hypertension with goal blood pressure less than 140/90 documented in this encounter Care Teams Manager Rehab Relationship Specialty Start Date End Date Juan F Rosen DO [address] [place] [address] [place] [address] PCP - General Internal Medicine 02/10/17 documented as of this encounter
--- OUTSIDE RECORDS SUMMARY | 2024-02-06 23:36 | External Medical Summary | Summary of Care ---
Author Name Unknown Organization [facility] Address [address] [place] [address] Phone [phone] Care Team Providers Care Vocational Rehabilitation Consultant Name Role Phone ReavesEduardaRoxannakelli Barrera Primary Care Provider [phone] Reason for Visit * Reason Comments Outpatient Testing Encounter Details Date Type Department Care Team (Late st Contact Info) Description 09/16/2023 9:30 AM EDT Laboratory Laboratory [address] [place] [phone] [place] [address] Altered mental status, unspecified altered mental status type Allergies Active Allergy Reactions Criticality Noted Date [...] 06/19/2020 10/09/2020 Overview: Per CKD protocol Old [place] (myocardial infarction) 10/05/2019 10/05/2019 Hypertensive kidney disease [...] AM EST Office Visit Family Medicine [address] [place] [phone] Roxanna Reaves, [address] [place] [address] 07/28/2024 9:00 AM EDT Nurse Only Ancillary [address] [place] [address] [place], Nurse [address] [place] [address] Pending Results Name Type Priority Associated Diagnoses Date /Time URINALYSIS, REFLEX TO MICROSCOPIC Lab Routine Altered mental status, unspecified altered mental status type 09/16/2023 9:26 AM EDT CULTURE, URINE, QUANTITATIVE Lab Routine Altered mental status, unspecified altered mental status type 09/16/2023 9:26 AM EDT Health Maintenance Due Date Last Done Comments Alpha-1 Antitrypsin 09/10/1953 DXA Scan 09/02/2020 09/02/2013, 10/11, 02/07/2009 *COPD SEVERITY VERIFIED BY PFT 08/23/2021 COVID-19 Vaccine ( season) 2022 11/25/2021, 01/17/2021, 10/10/2020, Additional history exists Influenza Vaccine (FLU shot) (#1) 2023 11/08/2022, 11/08/2022, 10/22/2022, Additional history exists Albumin/Creatinine Ratio 01/08/2024 023, 01/07/2022, 10/09/2020, Additional history exists CKD HGB USE SMARTSET 82556 01/08/202401/07, 01/07/2022, 01/07/2022, Additional history exists CKD PHOS USE SMARTSET 09585 01/08/202412/11, 01/07/2022, 10/09/2020, Additional history exists TSH [...] as of this encounter Visit Diagnoses Diagnosis Altered mental status, unspecified altered mental status type documented in this encounter Care Teams Vocational Rehabilitation Consultant Relationship Specialty Start Date End Date Roxanna Reaves DO [address] [place] [address] [place] [phone] PCP - General Internal Medicine 02/10/17 documented as of this encounter
--- OUTSIDE RECORDS SUMMARY | 2024-02-06 23:36 | External Medical Summary | Summary of Care ---
Author Name Unknown Organization [facility] Address [address] [place] [address] Phone [phone] Care Team Providers Care Tank Terminal Gauger Name Role Phone Roxanna Reaves DO Primary Care Provider [phone] Reason for Visit * Reason Onset Date Comments Test Results 01/18/2024 Encounter Details Date Type Department Care Team (Late st Contact Info) Description 01/18/2024 Telephone Family Medicine [address] [place] [phone] Roxanna Reaves DO [address] [place] [address] [place] [phone] Test Results Allergies Active Allergy Reactions Criticality [...] 1,000 mcgIndications:Vitamin B12 deficiency 1000 mcg IM [id number] 02/18/2024 01/18/2025 Active Vitamin B-12 (Cyanocobalamin) inj [...] 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 Not on file Not o n file 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 Not on file Not on file N ot on file documented as of this encounter Miscellaneous Notes * Telephone Encounter - Sundeep Cabrera LPN [...] 01/22/2024 9:20 AM EST Nurse Only Ancillary [address] [place] [address] [place], Nurse [address] [place] [address] 02/08/2024 8:45 AM EST Imaging Radiology [address] [place] [address] 03/16/2024 8:50 AM EST Office Visit Family Medicine [address] [place] [phone] Roxanna Reaves[address] [place] [address] 03/24/2024 1:00 PM EST Office Visit Neurology [facility] [address] [facility] [place] [address] Brenda Walton MD [address] [place] [address] 07/28/2024 9:00 AM EDT Nurse Only Ancillary [address] [place] [address] [place], Nurse [address] [place] [address] Scheduled Orders Name Type Priority Associated Diagnoses [...] Additional history exists CKD PHOS USE SMARTSET 85310 01/08/202412/11, 01/07/2022, 10/09/2020, Additional history exists Adult Wellness Visit 07/26/2024 07/27/2023, 07/24/2022, 12/31/2020 Depression Screening 07/26/2024 07/27/2023 CKD HGB USE SMARTSET 22154 01/14/202501/14, 01/15/2024, 01/07/2023, Additional history exists O2 [...] deficiencies documented in this encounter Care Teams Tank Terminal Gauger Relationship Specialty Start Date End Date Roxanna Reaves DO [address] [place] [address] [place] [phone] PCP - General Internal Medicine 02/10/17 documented as of this encounter
--- OUTSIDE RECORDS SUMMARY | 2024-02-06 23:36 | External Medical Summary ---
Author Name Unknown Address Unknown Organization K09:[facility] [address] [place] [address] Laboratory Report Ordering Provider Test Date Status SHWETA CRAIN 01/15/2024 11:36:06 Final Observation Date Value Abnormality Reference (Units ) Status BUN 01/15/2024 11:36:06 19 6-20 (mg/dL) Final Creatinine 01/15/2024 11:36:06 1.3 Above high normal 0.5-1.0 (mg/dL) Final Glomerular filtration rate/1.73 sq M.predicted [Volume Rate/Area] in Serum, Plasma or Blood by Creatinine-based formula (CKD-EPI) 01/15/2024 11:36:06 40 Below low normal >=60 (mL/min) Final eGFR is calculated based on the CKD-EPI 2020 equation. Sodium 01/15/2024 11:36:06 137 135-146 (m mol/L) Final Potassium 01/15/2024 11:36:06 4.5 3.5-5.1 (m mol/L) Final Cl 01/15/2024 11:36:06 101 98-107 (mm ol/L) Final CO2 01/15/2024 11:36:06 24 22-32 (mmo l/L) Final Anion gap 01/15/2024 11:36:06 12 7-15 (mmol /L) Final Glucose 01/15/2024 11:36:06 90 70-120 (mg /dL) Final Albumin 01/15/2024 11:36:06 4.4 3.8-5.0 (g /dL) Final AST (Aspartate aminotransferase) 01/15/2024 11:36:06 23 10-35 (U/L) Final Alk Phos 01/15/2024 11:36:06 75 35-130 (U/ L) Final Bilirubin, Total 01/15/2024 11:36:06 1.1 <=1 .2 (mg/dL) Final Calcium 01/15/2024 11:36:06 9.7 8.4-10.2 ( mg/dL) Final Protein 01/15/2024 11:36:06 7.2 6.0-8.3 (g /dL) Final ALT (Alanine aminotransferase) 01/15/2024 11:36:06 14 10-35 (U/L) Final Performing Location [facility] [address] [place] [address]
--- OUTSIDE RECORDS SUMMARY | 2024-02-06 23:36 | External Medical Summary | Summary of Care ---
Author Name Unknown Organization [facility] Address [address] [place] [address] Phone [phone] Care Team Providers Care Running Specialist Name Role Phone Juan F Rosen DO Primary Care Provider [phone] Reason for Visit * Reason Onset Date Comments Medication Refill 09/10/2023 Encounter Details Date Type Department Care Team (Late st Contact Info) Description 09/10/2023 Refill Family Medicine [address] [place] [phone] Juan F Rosen DO [address] [place] [address] [place] [phone] Essential hypertension with goal blood pressure less than 140/90 Allergies Active Allergy Reactions Criticality Noted Date Comments Leticia Hivanthony Low 12/21/2012 documented as of this encounter (statuses as of 09/10/2023) Medications Medication Sig Dispensed Refills Start Date [...] 11/07/2022 Active Lisinopril 10 MG Oral Tablet (Prinivil)Indicati [...] the morning.. 90 Tablet 1 09/10/2023 Active Metoprolol Succinate ER 25 MG Oral Tablet Extended Release 24 Hour (toPROL XL)Indications:Ess ential hypertension with goal blood pressure less than 140/90 Take 1 Tablet by mouth in the morning. In the morning.. 90 Tablet 1 03/25/2023 Discontinue d(Refill) documented as of this encounter (statuses as of 09/10/2023) Active Problems Problem Noted Date Diagnosed Date [...] as of this encounter (statuses as of 09/10/2023) Resolved Problems Problem Noted Date Diagnosed Date [...] as of this encounter (statuses as of 09/10/2023) Immunizations Name Administration Dates Next Due COVID-19 [...] Encounter - Juan F Rosen DO - 09/10/2023 9:23 PM EDTSigned Prescriptions: Disp Refills Metoprolol Succinate ER 25 MG Oral Tablet *90 Tab*1 Sig: Take 1 Tablet by mouth in the morning. In the morning.. Authorizing Provider: JUAN F ROSEN * Telephone Encounter - Arlin Cardoso RN - 09/10/2023 12:30 PM EDTPending Prescriptions: Disp Refills Metoprolol Succinate ER 25 MG Oral Tablet *90 Tab*1 Sig: Take 1 Tablet by mouth in the morning. In the morning.. * Telephone Encounter - Arlin Cardoso RN - 09/10/2023 12:30 PM EDT Next appointment 2024 Message sent to provider for review and signature. * Telephone Encounter - Kim Rodriguez OSA - 09/10/2023 10:15 AM EDT Did you pend patient's preferred pharmacy and medication before forwarding?yes Pharmacy: [facility], [address] [place] Pending Prescriptions: Disp Refills Metoprolol Succinate ER 25 MG Oral Tablet*90 Tab*1 Sig: Take 1 Tablet by mouth in the morning. In the morning.. Last Visit: 08/05/2023 (in office), Visit date not found (telemedicine) Next Visit: 03/16/2024 If no future appointments scheduled, and last appointment is greater than a year ago, please schedule patient for a follow-up appointment Last date the medication was ordered: 03.25.23 Is this request for a controlled substance?No Urine Drug Screen:No results found for this or any previous visit. Patient Phone Numbers Labs: Lab Results Component Value Date/Time CREAT 1.3 (H) 08/05/2023 10:59 AM CREAT 1.4 (H) 10/05/2019 03:07 PM POTASSIUM 4.4 08/05/2023 10:59 AM POTASSIUM 4.4 10/05/2019 03:07 PM TSH 1.05 01/07/2023 10:00 AM TSH 4.08 10/05/2019 03:07 PM LDLCALC UNINTERPRETABLE RESULT 01/19/2018 01:37 PM LDLDIRECT 77 01/07/2023 10:00 AM LDLDIRECT 74 10/05/2019 03:07 PM LDLDIRECT 74 02/10/2017 09:24 AM ALT 20 01/07/2023 10:00 AM ALT 19 10/05/2019 03:07 PM documented in this encounter Plan of Treatment Upcoming Encounters Date Type Department Care Team (Late st Contact Info) Description 03/16/2024 8:50 AM EST Office Visit Family Medicine [address] [phone] Juan F Rosen, [address] [place] [phone] 07/28/2024 9:00 AM EDT Nurse Only Ancillary Bailey [address] [place] [phone] [place], Nurse Annual [address] [place] [phone] Health Maintenance Due Date Last Done Comments Alpha-1 Antitrypsin 09/10/1953 DXA Scan 09/02/2020 09/02/2013, 10/11, 02/07/2009 *COPD SEVERITY VERIFIED BY PFT 08/23/2021 COVID-19 Vaccine ( season) 2022 11/25/2021, 01/17/2021, 10/10/2020, Additional history exists Influenza Vaccine (FLU shot) (#1) 2023 11/08/2022, 11/08/2022, 10/22/2022, Additional history exists Albumin/Creatinine Ratio 01/08/2024 023, 01/07/2022, 10/09/2020, Additional history exists CKD HGB USE SMARTSET 36988 01/08/202401/07, 01/07/2022, 01/07/2022, Additional history exists CKD PHOS USE SMARTSET 45095 01/08/202412/11, 01/07/2022, 10/09/2020, Additional history exists TSH 01/08/2024 01/07/2023, 06/09/2022, 01/07/2022, Additional history exists Depression Screening 07/26/2024 07/27/2023 O2 ASSESSMENT COMPLETED [...] 140/90 documented in this encounter Care Teams Running Specialist Relationship Specialty Start Date End Date Juan F Rosen DO [address] [place] [address] [place] [phone] PCP - General Internal Medicine 02/10/17 documented as of this encounter
--- NOTE | 2024-02-06 23:46 | Emergency Department Note ---
History of Present Illness General Chief complaint: Altered Mental Status Stated complaint: AMS Time Seen by Provider: 02/06/24 23:34 History of Present Illness This 88-year-old female with mild dementia presents to the ER via EMS by her daughter's request. Apparently the daughter told EMS that she was not making sense and wanted her evaluated. Patient herself has no complaints. Patient's presenting denies chest pain, dyspnea, abdominal pain, headache, numbness, tingling or any other medical complaints. She is following commands. Vital signs are stable. I attempted to call the daughter, Winter Ohara, at home with no answer. The daughter arrived and states the past 3 nights the patient has been acting confused and wandering out of her apartment. She is in an independent living facility. Daughter states she does not feel like her mother is safe and would like to have her placed in a memory facility. Home Medications Medication Instructions Recorded Confirmed Type atorvastatin 10 mg tablet (Lipitor) 10 mg PO 3XWK 01/04/18 02/07/24 History levothyroxine 75 mcg tablet 75 mcg PO DAILY 01/04/18 02/07/24 History lisinopril 10 mg tablet 10 mg PO DAILY 01/04/18 02/07/24 History loperamide 2 mg tablet 2 mg PO UD PRN Diarrhea 01/04/18 02/07/24 History metoprolol succinate 25 mg 25 mg PO DAILY 01/04/18 02/07/24 History tablet,extended release 24 hr (Toprol XL) triamcinolone acetonide 0.1 % 1 applic topical UNKNOWN PRN 01/04/18 02/07/24 History topical cream Unknown Allergies Allergy/AdvReac Type Severity Reaction Status Date / Time katie Allergy Unknown HIVES Verified 03/28/15 15:46 omeprazole Allergy Unknown rash Unverified 03/28/15 15:46 Past Med/Surg History Problem List (Updated 02/07/24 @ 01:07 by Heaven Fitzpatrick PA-C) Hypomagnesemia (Acute) Acute UTI (Acute) Altered mental status (Acute) COVID-19 (Acute) Encounter for pre-operative examination GI bleed (Acute) Diarrhea GERD (gastroesophageal reflux disease) (Chronic) Chest pain (Acute) Gastroenteritis Medical History (Updated 02/07/24 @ 01:07 by Heaven M Amari, PA-C) History of radiation therapy Uterine cancer Hypothyroidism CKD (chronic kidney disease) stage 3, GFR 30-59 ml/min Hypertension Surgical History History of hysterectomy for cancer H/O esophagogastroduodenoscopy Hx of colonoscopy History of cardiac cath History of appendectomy Family History Other Family history non-contributory Social History Smoking Status: Never smoker Tobacco Type: Cigarettes Second Hand Exposure: No; Do You Dip or Chew Tobacco: No; Hx Alcohol Use: No Hx Substance Use: No Preferred Language: [place]an Communication Ability: Effective Drugless Doctor Required: No Beliefs That Will Affect Care: None Current Living Situation: Alone Feels Safe at Home: Yes Assistive Devices: Denture - Upper, Denture - Lower and Glasses Review of Systems A total of 10 systems reviewed and were otherwise negative Physical Exam Vital Signs Vital Signs - 24 hr 02/06/24 23:38 02/06/24 23:59 02/06/24 23:59 Temperature 35.9 C L Temperature Source Rectal Pulse Rate 140 H 114 H Respiratory Rate 16 Respiratory Effort / Characteristics Non-Labored Spontaneous Respiratory Depth Normal Respiratory Pattern Regular Blood Pressure 109/69 Blood Pressure Mean 82 Blood Pressure Position Sitting Pulse Oximetry 98 98 Oxygen Delivery Method Room Air Room Air Sepsis Recent Fever Within 48 Hours No Sepsis New/Unexplained Change in Mental Status N/A Sepsis Action Taken by Nursing No Action Required 02/06/24 23:59 Temperature Temperature Source Pulse Rate Respiratory Rate Respiratory Effort / Characteristics Respiratory Depth Respiratory Pattern Blood Pressure Blood Pressure Mean Blood Pressure Position Pulse Oximetry 98 Oxygen Delivery Method Room Air Sepsis Recent Fever Within 48 Hours Sepsis New/Unexplained Change in Mental Status Sepsis Action Taken by Nursing VITALS: Vitals are noted on the nurse's note and reviewed by myself. Vital signs stable. GENERAL: Pleasant elderly female following commands, in no acute distress, nondiaphoretic, well-developed well-nourished. SKIN: The skin was without rashes, erythema, edema, or bruising. There is no tenting of the skin. Capillary reflex less than 2 seconds. HEAD: Normocephalic atraumatic. EARS: External auditory canals clear EYES: Pupils equal round and reactive to light and accommodation. Conjunctivae without injection, sclerae without icterus. Extraocular movements intact. NOSE: Patent, no discharge. MOUTH: Mucous membranes moist. Pharynx without erythema or exudate. Uvula midline. Airway patent. Tongue does not deviate. NECK: Supple without nuchal rigidity. No lymphadenopathy. No thyromegaly. Cervical spine is nontender. No JVD. HEART: Regular rate and rhythm LUNGS: Clear to auscultation bilaterally without wheezes, rales or rhonchi. No retractions or accessory muscle use. ABDOMEN: Positive bowel sounds x 4. Normal tympanic percussion. Soft, nontender, without masses or organomegaly. Ryan sign negative. No guarding or rebound tenderness. No CVA tenderness MUSCULOSKELETAL: No muscle atrophy, erythema, or edema noted. 5-5 strength throughout. NEURO: Patient was alert and oriented to person place and time. Normal sensation to light and sharp touch. No focal neurological deficits. Course Administered Medications Magnesium Sulfate/Dextrose (Magnesium Sulfate / D5w) 1 gm in 100 mls @ 100 mls/hr IV Q1H TI Stop: 02/07/24 02:49 Last Admin: 02/07/24 00:59 Dose: 100 mls/hr Documented By: PAULIE Discontinued Medications Sodium Chloride (Nss) 500 mls @ 999 mls/hr IV .Q31M ONE Stop: 02/07/24 01:19 Last Infusion: 02/07/24 01:35 Dose: Infused Documented By: Admin: 02/07/24 00:59 Dose: 999 mls/hr Documented By: PAULIE Ceftriaxone Sodium (Rocephin) 1,000 mg in 50 mls @ 100 mls/hr IV NOW STA Stop: 02/07/24 01:33 Last Admin: 02/07/24 01:34 Dose: 100 mls/hr Documented By: PAULIE Medical Decision Making Medical Records Attestation: I reviewed the patient's medical records. Home Medications Current Medication List: was personally reviewed by me Laboratory Data Attestation: I reviewed the patient's lab results. 02/06/24 23:55 02/06/24 23:55 Lab Results 02/06/24 02/07/24 Range/Units 23:55 01:35 WBC 6.57 (4.8-10.8) K/ul RBC 4.32 (4.20-5.40) M/uL Hgb 12.5 (12.0-16.0) g/dl Hct 38.0 (37.0-47.0) % MCV 88.0 (80.0-100.0) fL MCH 28.9 (25.0-34.0) pg MCHC 32.9 (32.0-36.0) g/dL RDW Std Deviation 41.3 (36.4-46.3) fL RDW Coeff of Serenity 12.8 (11.5-14.5) % Plt Count 273 (130-400) K/uL MPV 8.4 L (9.4-12.4) fL Immature Gran % (Auto) 0.5 % Neut % (Auto) 63.3 % Lymph % (Auto) 24.7 % Travis % (Auto) 8.2 % Eos % (Auto) 2.4 % Baso % (Auto) 0.9 % Neut # (Auto) 4.16 (1.40-6.50) K/uL Lymph # (Auto) 1.62 (1.20-3.40) K/uL Travis # (Auto) 0.54 (0.11-0.59) K/uL Eos # (Auto) 0.16 (0.00-0.50) K/uL Baso # (Auto) 0.06 (0.00-0.20) K/uL Immature Gran # (Auto) 0.03 (0.01-0.20) K/uL Sodium 135 L (136-145) mmol/L Potassium 4.0 (3.5-5.1) mmol/L Chloride 102 (98-107) mmol/L Carbon Dioxide 26 (21-32) mmol/L Anion Gap 7 (3-11) BUN 13 (6-23) mg/dl Creatinine 1.26 H (0.6-1.2) mg/dl Est Cr Clr Drug Dosing 27.9 ml/min eGFR 41.58 BUN/Creatinine Ratio 10.3 (10-20) Glucose 96 (70-99(Fasting)) mg/dl Lactate 1.8 (0.4-2.0) mmol/L Calcium 9.0 (8.6-10.3) mg/dl Magnesium 1.6 L (1.7-2.4) mg/dl Total Bilirubin 1.2 H (0.2-1.0) mg/dl AST 19 (13-39) U/L ALT 12 (7-52) U/L Alkaline Phosphatase 67 (34-104) U/L Troponin I High Sens 9.6 (0-14) pg/ml Total Protein 7.2 (6.0-8.3) gm/dl Albumin 4.0 (3.4-5.0) gm/dl Globulin 3.2 (2.5-4.0) gm/dl Albumin/Globulin Ratio 1.3 (0.9-2) TSH 1.228 (0.300-4.500) uIu/ml Urine Color Yellow Urine Appearance Clear (Clear) Urine pH 7.0 (4.5-7.5) Ur Specific [place] 1.014 (1.000-1.030) Urine Protein Negative (Negative) Urine Glucose (UA) Negative (Negative) Urine Ketones Negative (Negative) Urine Blood Negative (Negative) Urine Nitrite Negative (Negative) Urine Bilirubin Negative (Negative) Urine Urobilinogen Negative (Negative) Ur Leukocyte Esterase 2+ H (Negative) Urine WBC (Auto) 21-50 H (0-5) /hpf Urine RBC (Auto) 6-10 H (0-2) /hpf U Hyaline Cast (Auto) 0-2 (0-2) /lpf U Epithel Cells (Auto) 0-2 (0-2) /hpf Urine Bacteria (Auto) None Seen (None Seen) Adenovirus (PCR) Not Detected (NotDetected) B. pertussis DNA (PCR) Not Detected (NotDetected) B.parapertussis DNA PCR Not Detected (NotDetected) C. pneumoniae DNA (PCR) Not Detected (NotDetected) Coronavirus OC43 (PCR) Not Detected (NotDetected) Coronavirus HKU1 (PCR) Not Detected (NotDetected) Coronavirus 229E (PCR) Not Detected (NotDetected) SARS-CoV-2 (PCR) Not Detected (NotDetected) Coronavirus NL63 (PCR) Not Detected (NotDetected) Human Metapneumovir PCR Not Detected (NotDetected) Influenza Type A (PCR) Not Detected (NotDetected) Influenza Type B (PCR) Not Detected (NotDetected) M. pneumoniae (PCR) Not Detected (NotDetected) Parainfluenza 1 (PCR) Not Detected (NotDetected) Parainfluenza 2 (PCR) Not Detected (NotDetected) Parainfluenza 3 (PCR) Not Detected (NotDetected) Parainfluenza 4 (PCR) Not Detected (NotDetected) RSV (PCR) Not Detected (NotDetected) Entero/Rhino (PCR) Not Detected (NotDetected) Imaging Data Attestation: I personally reviewed and interpreted this imaging study as follows: Radiologist's Impression: Head CT 02/06/24 23:41 EXAM: CT head/brain wo con CLINICAL HISTORY: AMS PW/GS TECHNIQUE: An axial non-contrast CT scan of the brain was performed from the skull base to the high parietal region. One of the following dose reduction techniques was utilized for this exam: Automated exposure control, adjustment of the mA and/or kV according to patient size, and use of iterative reconstruction. (CTDI: 36.43 mGy, DLP: 547.75 mGy*cm) COMPARISON: CT: 10/09/2021 FINDINGS: Brain Parenchyma: No evidence of intracerebral or extra-axial hemorrhage was seen. Hypodense areas are seen in the right frontal and parietal periventricular regions likely due to prior vascular events. Redemonstration of age-appropriate brain involutional changes as evident by prominent intra-and extra-axial CSF spaces. Redemonstration of chronic microvascular ischemic changes seen. Ventricular System: Prominent intra-and extra-axial CSF spaces. No evidence of hydrocephalus or ventricular enlargement. Subarachnoid Spaces: Normal sulci and cisterns. No evidence of subarachnoid hemorrhage or extra-axial fluid collections. Cerebellum and Brainstem: Normal size and signal. No masses, lesions, or areas of abnormal signal. Orbits: Normal appearance of the globes, optic nerves, and extraocular muscles. No evidence of orbital masses or abnormal signals. Sinuses: Clear paranasal sinuses. No evidence of sinusitis or mucosal thickening. Mastoid Air Cells: Clear mastoid air cells. No evidence of mastoiditis. Skull: Normal skull morphology. IMPRESSION: 1. No evidence of intracerebral or extra-axial hemorrhage. 2. Hypodense areas are seen in the right frontal and parietal periventricular regions likely due to prior vascular events. Early changes of acute ischemic infarction may not be detected on CT scan, MRI stroke protocol is advised if clinically indicated. 3. Interval new findings. 4. Redemonstration of age-appropriate brain involutional changes and chronic microvascular ischemic changes as mentioned above. Electronically signed by Shamar Prince 02-07-2024 01:36 AM MDM Narrative Prior records/ancillary studies reviewed and summarized above. Nursing notes reviewed. Additional history obtained from EMS. The patient's history was concerning for possible altered mental status. Differential diagnosis: Etiologies such as metabolic, infection, hypo/hyperglycemia, electrolyte abnormalities, cardiac sources, intracerebral event, toxicologic, neurologic, as well as others were entertained. Physical examination: As above. ER treatment provided: IV Lock An order was placed for continuous cardiac monitoring. The monitor shows a rate of 60-100 with a sinus rhythm per my interpretation. Rocephin was ordered for UTI On reassessment the patient felt better. Diagnostics interpretation by me: ECG: Ordered for weakness EKG: Normal sinus, T wave inversion in aVL, inferior infarct, rate of 63. Impression normal sinus rhythm inferior infarct independently interpreted myself The labs Independently Interpreted by myself revealed urine concerning for infection sent for culture. Prior culture was reviewed No worrisome leukocytosis Low magnesium and this was replaced, negative troponin Imaging studies: Imaging is reviewed and read by radiology Consultation: A consultation was placed with the hospitalist. The case was discussed and diagnostics were reviewed. The patient was evaluated in the ER for further treatment. Exam and history seem consistent with increasing confusion at night concerning for dementia and UTI. Patient is independent living facility. Family does not feel comfortable her staying there with her memory issues that appear to be new. They are requesting medical admission. Medicine was consulted case discussed. She will be evaluated for possible admission. Patient was neurovascularly and neurologically intact. She was afebrile nontoxic. She is well-appearing. By the evaluation outlined above emergent etiologies such as cardiac sources, intracerebral event, toxologic, abnormalities blood glucose, metabolic, as well as others were deemed relatively unlikely. The pt informed about the findings as listed above. All questions were answered and pleased with the treatment. The chart was completed utilizing W4 voice recognition software. Grammatical errors, random word insertions, pronoun errors, and incomplete sentences are an occassional consequence of this system due to software limitations, ambient noise, and hardware issues. Any formal questions or concerns about the content, text, or information contained within the body of this dictation should be directly addressed to the physician payroll assistant for clarification. Impression & Plan Altered mental status, Acute UTI, Hypomagnesemia Discharge Plan Visit Data Chief Complaint: Altered Mental Status Stated Complaint: AMS ED Provider: Mani Rodriguez ED Midlevel Provider: Heaven Fitzpatrick Discharge Problem: Altered mental status, Acute UTI, Hypomagnesemia Patient Disposition: Admitted As Inpatient Condition: Good Forms Stand Alone Forms: My [employer] Prescriptions Prescriptions: No Action atorvastatin [Lipitor] 10 mg tablet 10 mg PO 3XWK Rx Instructions: TAKE MON, WED, FRI loperamide 2 mg Tablet 2 mg PO UD PRN (Reason: Diarrhea) triamcinolone acetonide 0.1 % cream 1 applic Topical UNKNOWN PRN (Reason: Unknown) levothyroxine 75 mcg tablet 75 mcg PO DAILY lisinopril 10 mg tablet 10 mg PO DAILY metoprolol succinate [Toprol XL] 25 mg tablet extended release 24 hr 25 mg PO DAILY Referrals Referrals: Roxanna Reaves DO [Primary Care Provider] - Discharge Problem: Altered mental status Qualifiers: Altered mental status type: unspecified Qualified Code(s): R41.82 - Altered mental status, unspecified
[2024-02-07 00:12] LABS: Basophils # (auto) 0.06 K/uL (0.00-0.20); Basophils % (auto) 0.9 %; Eosinophils # (auto) 0.16 K/uL (0.00-0.50); Eosinophils % (auto) 2.4 %; Hemoglobin 12.5 g/dl (12.0-16.0); Immature Granulocytes # (auto) 0.03 K/uL (0.01-0.20); Immature Granulocytes % (auto) 0.5 %; Lymphocytes # (auto) 1.62 K/uL (1.20-3.40); Lymphocytes % (auto) 24.7 %; Mean Corpuscular Hemoglobin 28.9 pg (25.0-34.0); Mean Corpuscular Hgb Conc 32.9 g/dL (32.0-36.0); Mean Platelet Volume 8.4 fL (9.4-12.4); Monocytes # (auto) 0.54 K/uL (0.11-0.59); Monocytes % (auto) 8.2 %; Neutrophils # (auto) 4.16 K/uL (1.40-6.50); Neutrophils % (auto) 63.3 %; Platelet Count 273 K/uL (130-400); RDW Coefficient of Variation 12.8 % (11.5-14.5); RDW Standard Deviation 41.3 fL (36.4-46.3); Red Blood Count 4.32 M/uL (4.20-5.40); White Blood Count 6.57 K/ul (4.8-10.8)
[2024-02-07 00:29] LABS: Albumin Globulin Ratio 1.3 (0.9-2); BUN Creatinine Ratio 10.3 (10-20); Bilirubin,Total 1.2 mg/dl (0.2-1.0); Creatinine Clr Calc Pharmacy 27.9 ml/min; Globulin 3.2 gm/dl (2.5-4.0); Magnesium 1.6 mg/dl (1.7-2.4); Total Protein 7.2 gm/dl (6.0-8.3)
[2024-02-07 00:36] LABS: Troponin I High Sensitivity 9.6 pg/ml (0-14)
[2024-02-07 00:45] LABS: Thyroid Stimulating Hormone 1.228 uIu/ml (0.300-4.500)
[2024-02-07 00:48] LABS: Appearance Urine Clear (Clear); Bacteria Urine Automated None Seen (None Seen); Bilirubin Urine Negative (Negative); Blood Urine Negative (Negative); Cast Urine Automated 0-2 /lpf (0-2); Color Urine Yellow; Epithelial Cell Urine Auto 0-2 /hpf (0-2); Glucose Urine UA Negative (Negative); Ketones Urine Negative (Negative); Leukocyte Esterase Urine 2+ (Negative); Nitrite Urine Negative (Negative); Protein Urine Negative (Negative); Specific Gravity Urine 1.014 (1.000-1.030); Urobilinogen Urine Negative (Negative); WBC Urine Automated 21-50 /hpf (0-5)
[2024-02-07] MEDS: MAGNESIUM SULFATE / D5W 1 GM/100 ML BAG IV SCH (00:59)
[2024-02-07] MEDS: SODIUM CHLORIDE 0.9% 500 ML IV ONE (00:59)
--- NOTE | 2024-02-07 01:29 | History & Physical Report ---
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 Family interested in placing patient at a local memory unit facility.) DVT prophylaxis. Heparin subcu DNR as per patient's prior directives as per daughter/POA Ms. Winter Ohara. She request updates providers thru [phone]. Text document was generated using [employer] voice recognition software. It may contain grammatical or spelling errors. Kindly contact undersigned for clarification of any documentation item in question. History of Present Illness Chief Complaint: I do not know as per patient. Worsening confusion as per family Primary Care Provider: Roxanna Reaves, History obtained from patient, family, and records. Limited history from patient secondary to dementia. 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 Last confinement December 2017 for LGIB. Colonoscopy limited by stenosis. Patient more confused than usual the last few days as per daughter. Patient denies headache, chest pain, SOB, abdominal pain, or dysuria symptoms. Verbalized to family that she wanted to go to retirement and kill herself. Patient daughter thinks patient not safe living independently at current [facility] residence. Patient dementia had sudden worsening over the last 6 months. Outpatient Brain MRI recommended by [facility] neurologist on last outpatient visit from 3 weeks ago. IV ceftriaxone administered at the ER. 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 Allergies Allergy/AdvReac Type Severity Reaction Status Date / Time katie Allergy Unknown HIVES Verified 03/28/15 15:46 omeprazole Allergy Unknown rash Unverified 03/28/15 15:46 Home Medications Medication Instructions Recorded Confirmed Type atorvastatin 10 mg tablet (Lipitor) 10 mg PO 3XWK 01/04/18 02/07/24 History levothyroxine 75 mcg tablet 75 mcg PO DAILY 01/04/18 02/07/24 History lisinopril 10 mg tablet 10 mg PO DAILY 01/04/18 02/07/24 History loperamide 2 mg tablet 2 mg PO UD PRN Diarrhea 01/04/18 02/07/24 History metoprolol succinate 25 mg 25 mg PO DAILY 01/04/18 02/07/24 History tablet,extended release 24 hr (Toprol XL) triamcinolone acetonide 0.1 % 1 applic topical UNKNOWN PRN 01/04/18 02/07/24 History topical cream Unknown Past Med/Surg History Problem List (Updated 02/07/24 @ 09:54 by Oleg Ferrari MD) Sepsis Hypomagnesemia (Acute) Acute UTI (Acute) Altered mental status (Acute) COVID-19 (Acute) Encounter for pre-operative examination GI bleed (Acute) Diarrhea GERD (gastroesophageal reflux disease) (Chronic) Chest pain (Acute) Gastroenteritis Medical History (Updated 02/07/24 @ 09:54 by Oleg Ferrari MD) History of radiation therapy Uterine cancer Hypothyroidism CKD (chronic kidney disease) stage 3, GFR 30-59 ml/min Hypertension Surgical History History of hysterectomy for cancer H/O esophagogastroduodenoscopy Hx of colonoscopy History of cardiac cath History of appendectomy Family History Other Family history non-contributory Social History Smoking Status: Unknown if ever smoked Tobacco Type: Cigarettes Second Hand Exposure: No; Do You Dip or Chew Tobacco: No; Preferred Language: German Communication Ability: Effective Cell Stripper Required: No Beliefs That Will Affect Care: None Current Living Situation: Other Current Living Situation Comment: [facility] home Feels Safe at Home: Yes Assistive Devices: Denture - Upper, Denture - Lower and Glasses Review of Systems Review of Systems: Could not be reliably obtained secondary to dementia Physical Exam Physical Exam: GENERAL: Demented, comfortable, no respiratory distress SKIN: Normal color, warm HEENT: [place] palpebral conjunctivae, no ptosis, dry buccal mucosa NECK : Supple, no tenderness CHEST : Decreased breath sounds, no tenderness HEART : Tachycardic, no obvious murmurs ABDOMEN: Some distention, nontender EXTREMITIES : No LE swelling/tenderness, no other conspicuous deformities noted NEUROLOGIC : Demented, no facial asymmetry, no other gross focality Results & Data Results & Data Vital Signs (Past 12 Hours) Vital Signs Temp Pulse Resp BP Pulse Ox O2 Del Method 02/06/24 23:59 98 Room Air 02/06/24 23:59 98 Room Air 02/06/24 23:59 35.9 C L 114 H 16 109/69 98 Room Air 02/06/24 23:38 140 H Laboratory Results Laboratory Results WBC 6.57 K/ul (4.8-10.8) 02/06/24 23:55 RBC 4.32 M/uL (4.20-5.40) 02/06/24 23:55 Hgb 12.5 g/dl (12.0-16.0) 02/06/24 23:55 Hct 38.0 % (37.0-47.0) 02/06/24 23:55 MCV 88.0 fL (80.0-100.0) 02/06/24 23:55 MCH 28.9 pg (25.0-34.0) 02/06/24 23:55 MCHC 32.9 g/dL (32.0-36.0) 02/06/24 23:55 RDW Std Deviation 41.3 fL (36.4-46.3) 02/06/24 23:55 RDW Coeff of Serenity 12.8 % (11.5-14.5) 02/06/24 23:55 Plt Count 273 K/uL (130-400) 02/06/24 23:55 MPV 8.4 fL (9.4-12.4) L 02/06/24 23:55 Immature Gran % (Auto) 0.5 % 02/06/24 23:55 Neut % (Auto) 63.3 % 02/06/24 23:55 Lymph % (Auto) 24.7 % 02/06/24 23:55 Barrow % (Auto) 8.2 % 02/06/24 23:55 Eos % (Auto) 2.4 % 02/06/24 23:55 Baso % (Auto) 0.9 % 02/06/24 23:55 Neut # (Auto) 4.16 K/uL (1.40-6.50) 02/06/24 23:55 Lymph # (Auto) 1.62 K/uL (1.20-3.40) 02/06/24 23:55 Barrow # (Auto) 0.54 K/uL (0.11-0.59) 02/06/24 23:55 Eos # (Auto) 0.16 K/uL (0.00-0.50) 02/06/24 23:55 Baso # (Auto) 0.06 K/uL (0.00-0.20) 02/06/24 23:55 Immature Gran # (Auto) 0.03 K/uL (0.01-0.20) 02/06/24 23:55 Sodium 135 mmol/L (136-145) L 02/06/24 23:55 Potassium 4.0 mmol/L (3.5-5.1) 02/06/24 23:55 Chloride 102 mmol/L (98-107) 02/06/24 23:55 Carbon Dioxide 26 mmol/L (21-32) 02/06/24 23:55 Anion Gap 7 (3-11) 02/06/24 23:55 BUN 13 mg/dl (6-23) 02/06/24 23:55 Creatinine 1.26 mg/dl (0.6-1.2) H 02/06/24 23:55 Est Cr Clr Drug Dosing 27.9 ml/min 02/06/24 23:55 eGFR 41.58 02/06/24 23:55 BUN/Creatinine Ratio 10.3 (10-20) 02/06/24 23:55 Glucose 96 mg/dl (70-99(Fasting)) 02/06/24 23:55 Calcium 9.0 mg/dl (8.6-10.3) 02/06/24 23:55 Magnesium 1.6 mg/dl (1.7-2.4) L 02/06/24 23:55 Total Bilirubin 1.2 mg/dl (0.2-1.0) H 02/06/24 23:55 AST 19 U/L (13-39) 02/06/24 23:55 ALT 12 U/L (7-52) 02/06/24 23:55 Alkaline Phosphatase 67 U/L (34-104) 02/06/24 23:55 Troponin I High Sens 9.6 pg/ml (0-14) 02/06/24 23:55 Total Protein 7.2 gm/dl (6.0-8.3) 02/06/24 23:55 Albumin 4.0 gm/dl (3.4-5.0) 02/06/24 23:55 Globulin 3.2 gm/dl (2.5-4.0) 02/06/24 23:55 Albumin/Globulin Ratio 1.3 (0.9-2) 02/06/24 23:55 TSH 1.228 uIu/ml (0.300-4.500) 02/06/24 23:55 Urine Color Yellow 02/06/24 23:55 Urine Appearance Clear (Clear) 02/06/24 23:55 Urine pH 7.0 (4.5-7.5) 02/06/24 23:55 Ur Specific [employer] 1.014 (1.000-1.030) 02/06/24 23:55 Urine Protein Negative (Negative) 02/06/24 23:55 Urine Glucose (UA) Negative (Negative) 02/06/24 23:55 Urine Ketones Negative (Negative) 02/06/24 23:55 Urine Blood Negative (Negative) 02/06/24 23:55 Urine Nitrite Negative (Negative) 02/06/24 23:55 Urine Bilirubin Negative (Negative) 02/06/24 23:55 Urine Urobilinogen Negative (Negative) 02/06/24 23:55 Ur Leukocyte Esterase 2+ (Negative) H 02/06/24 23:55 Urine WBC (Auto) 21-50 /hpf (0-5) H 02/06/24 23:55 Urine RBC (Auto) 6-10 /hpf (0-2) H 02/06/24 23:55 U Hyaline Cast (Auto) 0-2 /lpf (0-2) 02/06/24 23:55 U Epithel Cells (Auto) 0-2 /hpf (0-2) 02/06/24 23:55 Urine Bacteria (Auto) None Seen (None Seen) 02/06/24 23:55 Diagnostic Findings EKG as per my interpretation :Rate 65, NSR, LAD, LAFB, anteroseptal infarct, no ischemia
[2024-02-07 01:30] LABS: Adenovirus PCR Not Detected (NotDetected); Bordetella parapertussis PCR Not Detected (NotDetected); Bordetella pertussis PCR Not Detected (NotDetected); Chlamydia pneumoniae PCR Not Detected (NotDetected); Coronavirus 229E PCR Not Detected (NotDetected); Coronavirus CoV-2 (COVID19)PCR Not Detected (NotDetected); Coronavirus HKU1 PCR Not Detected (NotDetected); Coronavirus NL63 PCR Not Detected (NotDetected); Coronavirus OC43PCR Not Detected (NotDetected); Human Metapneumovirus PCR Not Detected (NotDetected); Influenza A PCR Not Detected (NotDetected); Influenza B PCR Not Detected (NotDetected); Mycoplasma pneumoniae PCR Not Detected (NotDetected); Parainfluenza Virus 1 PCR Not Detected (NotDetected); Parainfluenza Virus 2 PCR Not Detected (NotDetected); Parainfluenza Virus 3 PCR Not Detected (NotDetected); Parainfluenza Virus 4 PCR Not Detected (NotDetected); Respiratory Syncytial VirusPCR Not Detected (NotDetected); Rhinovirus/Enterovirus PCR Not Detected (NotDetected)
[2024-02-07] MEDS: cefTRIAXone SODIUM 1,000 MG/50 ML BAG IV STA (01:34)
--- NOTE | 2024-02-07 01:36 | CT Scan Report ---
EXAM: CT head/brain wo con CLINICAL HISTORY: AMS PW/GS TECHNIQUE: An axial non-contrast CT scan of the brain was performed from the skull base to the high parietal region. One of the following dose reduction techniques was utilized for this exam: Automated exposure control, adjustment of the mA and/or kV according to patient size, and use of iterative reconstruction. (CTDI: 36.43 mGy, DLP: 547.75 mGy*cm) COMPARISON: CT: 10/09/2021 FINDINGS: Brain Parenchyma: No evidence of intracerebral or extra-axial hemorrhage was seen. Hypodense areas are seen in the right frontal and parietal periventricular regions likely due to prior vascular events. Redemonstration of age-appropriate brain involutional changes as evident by prominent intra-and extra-axial CSF spaces. Redemonstration of chronic microvascular ischemic changes seen. Ventricular System: Prominent intra-and extra-axial CSF spaces. No evidence of hydrocephalus or ventricular enlargement. Subarachnoid Spaces: Normal sulci and cisterns. No evidence of subarachnoid hemorrhage or extra-axial fluid collections. Cerebellum and Brainstem: Normal size and signal. No masses, lesions, or areas of abnormal signal. Orbits: Normal appearance of the globes, optic nerves, and extraocular muscles. No evidence of orbital masses or abnormal signals. Sinuses: Clear paranasal sinuses. No evidence of sinusitis or mucosal thickening. Mastoid Air Cells: Clear mastoid air cells. No evidence of mastoiditis. Skull: Normal skull morphology. IMPRESSION: 1. No evidence of intracerebral or extra-axial hemorrhage. 2. Hypodense areas are seen in the right frontal and parietal periventricular regions likely due to prior vascular events. Early changes of acute ischemic infarction may not be detected on CT scan, MRI stroke protocol is advised if clinically indicated. 3. Interval new findings. 4. Redemonstration of age-appropriate brain involutional changes and chronic microvascular ischemic changes as mentioned above. Electronically signed by Shamar Prince 02-07-2024 01:36 AM
[2024-02-07] MEDS ORDERED: ACETAMINOPHEN 325 MG TAB PO PRN (01:44)
--- NOTE | 2024-02-07 02:15 | XRay Report ---
Exam(s): XR CXR 1 VIEW EXAM: XR Chest, 1 View CLINICAL HISTORY: weakness. TECHNIQUE: Frontal view of the chest. COMPARISON: No relevant prior studies available. FINDINGS: Lungs: The presumed asymmetric elevation of the right hemidiaphragm. No definite focal airspace consolidation. The pulmonary vasculature is unremarkable. Pleural space: Unremarkable. No pneumothorax. No large pleural effusion. Heart: Unremarkable. No cardiomegaly. Mediastinum: No significant abnormality identified. The trachea is midline. Bones/joints: Unremarkable. No acute fracture. IMPRESSION: No focal consolidation or acute cardiopulmonary process identified. Asymmetric elevation of the right hemidiaphragm of uncertain chronicity. Electronically signed by: Margarito White MD 02/07/24 02:14 AM
--- NOTE | 2024-02-07 02:20 | Emergency Department Note ---
ED Visit Note I was consulted by the Advanced Practice Provider. I personally made/approved the management plan and take responsibility for the patient management. I performed a substantive portion of the visit. This includes the aspects of: -History/Physical -MDM .
[2024-02-07 04:32] LABS: Basophils # (auto) 0.04 K/uL (0.00-0.20); Basophils % (auto) 0.7 %; Eosinophils # (auto) 0.15 K/uL (0.00-0.50); Eosinophils % (auto) 2.6 %; Hematocrit (blood only) 34.5 % (37.0-47.0); Hemoglobin 11.5 g/dl (12.0-16.0); Immature Granulocytes # (auto) 0.04 K/uL (0.01-0.20); Immature Granulocytes % (auto) 0.7 %; Lymphocytes # (auto) 1.26 K/uL (1.20-3.40); Lymphocytes % (auto) 22.2 %; Mean Corpuscular Hemoglobin 29.5 pg (25.0-34.0); Mean Corpuscular Hgb Conc 33.3 g/dL (32.0-36.0); Mean Corpuscular Volume 88.5 fL (80.0-100.0); Mean Platelet Volume 8.9 fL (9.4-12.4); Monocytes # (auto) 0.43 K/uL (0.11-0.59); Monocytes % (auto) 7.6 %; Neutrophils # (auto) 3.75 K/uL (1.40-6.50); Neutrophils % (auto) 66.2 %; Platelet Count 267 K/uL (130-400); RDW Coefficient of Variation 12.7 % (11.5-14.5); White Blood Count 5.67 K/ul (4.8-10.8)
[2024-02-07 04:47] LABS: BUN Creatinine Ratio 9.1 (10-20); Calcium 8.7 mg/dl (8.6-10.3); Creatinine Clr Calc Pharmacy 29.1 ml/min; Magnesium 2.4 mg/dl (1.7-2.4); Potassium 3.9 mmol/L (3.5-5.1)
[2024-02-07] MEDS: HEPARIN SOD 5,000 UNIT/0.5 ML VIAL SQ SCH (06:14)
[2024-02-07] MEDS: LEVOTHYROXINE SODIUM 75 MCG TABLET PO SCH (06:14)
[2024-02-07] MEDS: METOPROLOL SUCC 25MG EXT REL TAB PO SCH (08:17)
--- NOTE | 2024-02-07 10:14 | Electrocardiogram Report ---
Test Reason : Blood Pressure : */* mmHG Vent. Rate : 63 BPM Atrial Rate : 63 BPM P-R Int : 166 ms QRS Dur : 104 ms QT Int : 418 ms P-R-T Axes : 50 -23 89 degrees QTcB Int : 427 ms Normal sinus rhythm Inferior infarct (cited on or before 04-Jan-2018) Anteroseptal infarct (cited on or before 31-Mar-2014) Non-specific intra-ventricular conduction delay Abnormal ECG When compared with ECG of 28-Jun-2022 09:54, No significant change was found Confirmed by Shirley Muse ([id number]) on 02/07/2024 10:13:58 AM Referred By: REFERRED SELF Confirmed By: Shirley Muse
[2024-02-07] MEDS: GADOBUTROL 65ML VIAL IV ONE (12:18)
--- NOTE | 2024-02-07 12:27 | Communication Note ---
Date of Service: February 07, 2024 Patient was seen and examined at bedside. 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 Patient denied any headache or chest pain or shortness of breath or abdominal pain or dysuria symptoms. Patient's daughter thinks patient is not safe living independently at current [facility] residence. Per daughter, her dementia has been worsening over the last 6 months. Outpatient brain MRI was recommended by [facility] neurologist. She is being managed for the following: Complicated UTI Sepsis POA: Secondary to UTI. Temperature 35.9C, heart rate elevated at present ation. Lactate WNL. Metabolic encephalopathy, delirium on dementia: Secondary to above. Patient started on Rocephin 02/06, continue. Add probiotic. Follow admitting urine culture and blood culture. Brain MRI RE rapidly progressing dementia as per outpatient [facility] neurology recommendations Delirium precautions. PT OT eval. Social service re: placement - (Patient deemed unsafe by family to be living independently. Family interested in placing patient at a local memory unit facility.) Suicidal ideation: Suicidal statements per family member [employer], patient currently denies suicidality Psych consult re: suicidality One-to-one, suicide precautions until patient evaluated by Psychiatry. Other chronic medical conditions: Continue with/resume home meds as and when able. hypertension, BP on the lower side at presentation, now uptrending, resume home meds. hyperlipidemia on statin Rx COPD/ILD, lung status at baseline hypothyroidism, euthyroid as of this admission's TSH cervical/metastatic uterine cancer status post surgery/chemoradiation, currently in remission CRI, at baseline past tobacco abuse DVT prophylaxis. Heparin subcu DNR as per patient's prior directives as per daughter/POA Ms. Winter Ohara. [phone]. Text document was generated using [employer] voice recognition software. It may contain grammatical or spelling errors. Kindly contact undersigned for clarification of any documentation item in question. For detailed information on the patient, refer to today's H&P note.
[2024-02-07] MEDS: ADVANCED PROBIOTIC 625 MG CAPSULE PO SCH (13:18)
[2024-02-07] MEDS: lisinopril 10 MG TAB PO SCH (13:18)
--- NOTE | 2024-02-07 16:57 | Magnetic Resonance Report ---
EXAM: MR brain wo/w con CLINICAL HISTORY: Rapid progression Dementia confusion r/o stroke or mets no head trauma. TECHNIQUE: Different pulse sequences were performed in different planes with and without contrast injection of 6 ml Gadavist for the brain. Images were sent through PACS for interpretation. COMPARISON: prior CT 02/06/2024. FINDINGS: Brain Parenchyma: Right superior frontal and occipital deep white matter foci of diffusion restriction, denoting acute infarcts. A small right superior parietal patchy cortical and subcortical area of low T1/FLAIR and high T2 signal intensity, with peripheral high FLAIR rim, denoting gliosis, with corresponding facilitated diffusion is noted. Multiple foci of an altered signal are seen involving the bilateral fronto-parietal subcortical white matter, eliciting high T2/FLAIR signal intensities, some are low on T1 WIS, with no perifocal edema or mass effect. no corresponding diffusion restriction with isointense ADC denoting chronicity. Bilateral deep white matter periventricular confluent areas and sheets of bright T2 and FLAIR signal denote small arterial disease (Fazekas 2). Bilateral prominent Virchow's Lobo spaces of the basal ganglia and centrum semiovale. No shift of midline structures. No intracerebral or extra-axial hematomas or masses. Post-Contrast Findings: No abnormal enhancement of the brain parenchyma or meninges. Ventricles and Sulci: Accentuated cortical sulci, Sylvian fissures, and extra-axial CSF spaces are associated with mild to moderate symmetrical dilatation of the supra-tenorial ventricular system. Brainstem and Cerebellum: Normal appearance of the brainstem and cerebellum without focal lesions or abnormal enhancement. Normal MRI appearance of the vestibule cochlear nerves, and cerebellopontine angles with no definite masses. Vessels: Attenuated cavernous and supra clinoid segments of the right ICA. Partial loss of the signal void of the right transverse and sigmoid sinuses, suggests venous thrombosis and needs better MRV correlation. Skull and Calvarium: No evidence of skull vault lesions or abnormal marrow signals within the calvarium. Paranasal sinuses and mastoid air cells:- clear. Orbit:- Normal MRI appearance of orbital structures, both globes, optic nerves, optic chiasm, optic tracts, and optic radiations. IMPRESSION: 1. Right superior frontal and occipital deep white matter foci of diffusion restriction, denoting acute infarcts. new finding. 2. Partial loss of the signal void of the right transverse and sigmoid sinuses, suggests venous thrombosis and needs better MRV correlation. new finding. 3. Attenuated cavernous and supra clinoid segments of the right ICA, MRA/CTA is advised. new finding. 4. right high parietal chronic infarct. stable 5. No abnormal enhancement of the brain parenchyma or meninges. 6. chronic microvascular ischemic angiopathy. stable 7. Age-related brain involuational changes. Stable [facility] ER was called at [phone] at 04:45 PM EST, 02/07/2024, and Dr Avila was informed regarding the presence of Significant Medical Findings on the report. Electronically signed by Shamar Prince 02-07-2024 4:57 PM
--- NOTE | 2024-02-07 17:20 | Neurology Consultation ---
Date of Consultation February 07, 2024 Assessment & Plan (1) Stroke due to embolism: Multifocal right MCA stroke in a 88F who is currently admitted for a UTI. On exam she is awake and attentive but mildly disorientated and her exam is non- focal. MRI shows 2 discrete areas of stroke and a hypoplastic left transverse sinus. I have a low suspicion that the transverse sinus thrombosis is acute, since she denies recent or current headache. The strokes are embolic either from the carotid or cardioembolic. There is no MRI evidence of a cause for her dementia, but there is clear small vessel disease which could be contributing Plan -- recommend ASA -- CTA head/neck -- continue statin -- echocardiogram -- telemetry -- Pt/OT/MASK FORMER Telehealth Consultation Telehealth Information Telehealth Information: I performed this visit using a real-time telehealth connection between my location and the patients location ([facility]). After connecting through interactive tele-video, patient was identified by name and date of and/or wristband check.Patient (or authorized healthcare publications sales representative) was informed that this was a telemedicine visit and it was being conducted confidentially over secure lines. My office door was closed and no one else was present in the room with me.Patient (or authorized healthcare publications sales representative) provided consent to proceed with the visit, expressed an understanding of privacy and security of the telemedicine visit, and gave permission to have a hospital publications sales representative in the room in order to assist with the visit and to conduct portions of the visit, as needed. I informed the patient (or authorized healthcare publications sales representative) that I reviewed their record and presented the opportunity for them to ask any questions regarding the visit today. The patient agreed to participate. History of Present Illness Reason for Consultation: abnormal MRI Attending Physician: Alexandra Avila MD History of Present Illness Ct Ortiz is a 88F with a PMH of HTN, HLD, lung cancer who presented with confusion. She can provide no history but by report she was behaving in a confused way in her assisted living and was brought to the ED. In the ED she was found to have a UTI was started on Ceftriaxone. She follows with neurology due to worsening memory. She was last seen by Dr Brenda Pineda and at the time family reports that she had rapidly declined over the last months. She went from managing her own medication to needing assistance and started hallucinating. At that time an MRI was recommended and it was completed while in the hospital now. She can't provide a ROS. Allergies Allergy/AdvReac Type Severity Reaction Status Date / Time katie Allergy Unknown HIVES Verified 03/28/15 15:46 omeprazole Allergy Unknown rash Unverified 03/28/15 15:46 Home Medications Medication Instructions Recorded Confirmed Type atorvastatin 10 mg tablet (Lipitor) 10 mg PO [id number] 01/04/18 02/07/24 History levothyroxine 75 mcg tablet 75 mcg PO DAILY 01/04/18 02/07/24 History lisinopril 10 mg tablet 10 mg PO DAILY 01/04/18 02/07/24 History loperamide 2 mg tablet 2 mg PO UD PRN Diarrhea 01/04/18 02/07/24 History metoprolol succinate 25 mg 25 mg PO DAILY 01/04/18 02/07/24 History tablet,extended release 24 hr (Toprol XL) triamcinolone acetonide 0.1 % 1 applic topical UNKNOWN PRN 01/04/18 02/07/24 History topical cream Unknown Patient History Medical History (Updated 02/07/24 @ 17:30 by Rubio Wells MD) History of radiation therapy Uterine cancer Hypothyroidism CKD (chronic kidney disease) stage 3, GFR 30-59 ml/min Hypertension Surgical History History of hysterectomy for cancer H/O esophagogastroduodenoscopy Hx of colonoscopy History of cardiac cath History of appendectomy Family History Other Family history non-contributory Social History Smoking Status: Unknown if ever smoked Tobacco Type: Cigarettes Second Hand Exposure: No; Do You Dip or Chew Tobacco: No; Preferred Language: Lithuanian Communication Ability: Effective Sports Book Board Attendant Required: No Beliefs That Will Affect Care: None Current Living Situation: Other Current Living Situation Comment: Senior Care home Feels Safe at Home: Yes Assistive Devices: Denture - Upper, Denture - Lower and Glasses Review of Systems See HPI Physical Exam Awake and alert, orientated to person and place but not time. No aphasia, and no dysarthria. She is able to describe the stroke pictures and read the cards. No facial droop and no focal weakness, holds all extremities against gravity. No sensory loss, gait deferred Results & Data Vital Signs (Past 12 Hours) Vital Signs Temp Pulse Pulse Resp BP BP Pulse Ox 02/07/24 16:00 64 02/07/24 16:00 36.3 C L 64 16 104/67 94 02/07/24 12:43 36.4 C L 62 24 147/59 H 96 02/07/24 08:54 36.3 C L 76 16 161/86 H 95 02/07/24 07:28 63 O2 Del Method 02/07/24 16:00 02/07/24 16:00 Room Air 02/07/24 12:43 Room Air 02/07/24 08:54 Room Air 02/07/24 07:28 Laboratory Results Abnormal Lab Results 02/06/24 02/07/24 02/07/24 23:55 01:35 03:34 WBC 6.57 5.67 RBC 4.32 3.90 L Hgb 12.5 11.5 L Hct 38.0 34.5 L MCV 88.0 88.5 MCH 28.9 29.5 MCHC 32.9 33.3 RDW Std Deviation 41.3 41.0 RDW Coeff of Serenity 12.8 12.7 Plt Count 273 267 MPV 8.4 L 8.9 L Immature Gran % (Auto) 0.5 0.7 Neut % (Auto) 63.3 66.2 Lymph % (Auto) 24.7 22.2 Lincoln % (Auto) 8.2 7.6 Eos % (Auto) 2.4 2.6 Baso % (Auto) 0.9 0.7 Neut # (Auto) 4.16 3.75 Lymph # (Auto) 1.62 1.26 Lincoln # (Auto) 0.54 0.43 Eos # (Auto) 0.16 0.15 Baso # (Auto) 0.06 0.04 Immature Gran # (Auto) 0.03 0.04 Sodium 135 L 137 Potassium 4.0 3.9 Chloride 102 106 Carbon Dioxide 26 24 Anion Gap 7 7 BUN 13 11 Creatinine 1.26 H 1.21 H Est Cr Clr Drug Dosing 27.9 29.1 eGFR 41.58 43.65 BUN/Creatinine Ratio 10.3 9.1 L Glucose 96 102 H Lactate 1.8 Calcium 9.0 8.7 Magnesium 1.6 L 2.4 Total Bilirubin 1.2 H AST 19 ALT 12 Alkaline Phosphatase 67 Troponin I High Sens 9.6 Total Protein 7.2 Albumin 4.0 Globulin 3.2 Albumin/Globulin Ratio 1.3 TSH 1.228 Urine Color Yellow Urine Appearance Clear Urine pH 7.0 Ur Specific [place] 1.014 Urine Protein Negative Urine Glucose (UA) Negative Urine Ketones Negative Urine Blood Negative Urine Nitrite Negative Urine Bilirubin Negative Urine Urobilinogen Negative Ur Leukocyte Esterase 2+ H Urine WBC (Auto) 21-50 H Urine RBC (Auto) 6-10 H U Hyaline Cast (Auto) 0-2 U Epithel Cells (Auto) 0-2 Urine Bacteria (Auto) None Seen Adenovirus (PCR) Not Detected B. pertussis DNA (PCR) Not Detected B.parapertussis DNA PCR Not Detected C. pneumoniae DNA (PCR) Not Detected Coronavirus OC43 (PCR) Not Detected Coronavirus HKU1 (PCR) Not Detected Coronavirus 229E (PCR) Not Detected SARS-CoV-2 (PCR) Not Detected Coronavirus NL63 (PCR) Not Detected Human Metapneumovir PCR Not Detected Influenza Type A (PCR) Not Detected Influenza Type B (PCR) Not Detected M. pneumoniae (PCR) Not Detected Parainfluenza 1 (PCR) Not Detected Parainfluenza 2 (PCR) Not Detected Parainfluenza 3 (PCR) Not Detected Parainfluenza 4 (PCR) Not Detected RSV (PCR) Not Detected Entero/Rhino (PCR) Not Detected Diagnostic Findings Chest X-Ray 02/06/24 23:40 Exam(s): XR CXR 1 VIEW EXAM: XR Chest, 1 View CLINICAL HISTORY: weakness. TECHNIQUE: Frontal view of the chest. COMPARISON: No relevant prior studies available. FINDINGS: Lungs: The presumed asymmetric elevation of the right hemidiaphragm. No definite focal airspace consolidation. The pulmonary vasculature is unremarkable. Pleural space: Unremarkable. No pneumothorax. No large pleural effusion. Heart: Unremarkable. No cardiomegaly. Mediastinum: No significant abnormality identified. The trachea is midline. Bones/joints: Unremarkable. No acute fracture. IMPRESSION: No focal consolidation or acute cardiopulmonary process identified. Asymmetric elevation of the right hemidiaphragm of uncertain chronicity. Electronically signed by: Margarito White MD 02/07/24 02:[address] 02/06/24 23:41 EXAM: CT head/brain wo con CLINICAL HISTORY: AMS PW/GS TECHNIQUE: An axial non-contrast CT scan of the brain was performed from the skull base to the high parietal region. One of the following dose reduction techniques was utilized for this exam: Automated exposure control, adjustment of the mA and/or kV according to patient size, and use of iterative reconstruction. (CTDI: 36.43 mGy, DLP: 547.75 mGy*cm) COMPARISON: CT: 10/09/2021 FINDINGS: Brain Parenchyma: No evidence of intracerebral or extra-axial hemorrhage was seen. Hypodense areas are seen in the right frontal and parietal periventricular regions likely due to prior vascular events. Redemonstration of age-appropriate brain involutional changes as evident by prominent intra-and extra-axial CSF spaces. Redemonstration of chronic microvascular ischemic changes seen. Ventricular System: Prominent intra-and extra-axial CSF spaces. No evidence of hydrocephalus or ventricular enlargement. Subarachnoid Spaces: Normal sulci and cisterns. No evidence of subarachnoid hemorrhage or extra-axial fluid collections. Cerebellum and Brainstem: Normal size and signal. No masses, lesions, or areas of abnormal signal. Orbits: Normal appearance of the globes, optic nerves, and extraocular muscles. No evidence of orbital masses or abnormal signals. Sinuses: Clear paranasal sinuses. No evidence of sinusitis or mucosal thickening. Mastoid Air Cells: Clear mastoid air cells. No evidence of mastoiditis. Skull: Normal skull morphology. IMPRESSION: 1. No evidence of intracerebral or extra-axial hemorrhage. 2. Hypodense areas are seen in the right frontal and parietal periventricular regions likely due to prior vascular events. Early changes of acute ischemic infarction may not be detected on CT scan, MRI stroke protocol is advised if clinically indicated. 3. Interval new findings. 4. Redemonstration of age-appropriate brain involutional changes and chronic microvascular ischemic changes as mentioned above. Electronically signed by Shamar Prince 02-07-2024 01:36 AM Brain MRI 02/07/24 01:47 EXAM: MR brain wo/w con CLINICAL HISTORY: Rapid progression Dementia confusion r/o stroke or mets no head trauma. TECHNIQUE: Different pulse sequences were performed in different planes with and without contrast injection of 6 ml Gadavist for the brain. Images were sent through PACS for interpretation. COMPARISON: prior CT 02/06/2024. FINDINGS: Brain Parenchyma: Right superior frontal and occipital deep white matter foci of diffusion restriction, denoting acute infarcts. A small right superior parietal patchy cortical and subcortical area of low T1/FLAIR and high T2 signal intensity, with peripheral high FLAIR rim, denoting gliosis, with corresponding facilitated diffusion is noted. Multiple foci of an altered signal are seen involving the bilateral fronto-parietal subcortical white matter, eliciting high T2/FLAIR signal intensities, some are low on T1 WIS, with no perifocal edema or mass effect. no corresponding diffusion restriction with isointense ADC denoting chronicity. Bilateral deep white matter periventricular confluent areas and sheets of bright T2 and FLAIR signal denote small arterial disease (Fazekas 2). Bilateral prominent Virchow's Lobo spaces of the basal ganglia and centrum semiovale. No shift of midline structures. No intracerebral or extra-axial hematomas or masses. Post-Contrast Findings: No abnormal enhancement of the brain parenchyma or meninges. Ventricles and Sulci: Accentuated cortical sulci, Sylvian fissures, and extra-axial CSF spaces are associated with mild to moderate symmetrical dilatation of the supra-tenorial ventricular system. Brainstem and Cerebellum: Normal appearance of the brainstem and cerebellum without focal lesions or abnormal enhancement. Normal MRI appearance of the vestibule cochlear nerves, and cerebellopontine angles with no definite masses. Vessels: Attenuated cavernous and supra clinoid segments of the right ICA. Partial loss of the signal void of the right transverse and sigmoid sinuses, suggests venous thrombosis and needs better MRV correlation. Skull and Calvarium: No evidence of skull vault lesions or abnormal marrow signals within the calvarium. Paranasal sinuses and mastoid air cells:- clear. Orbit:- Normal MRI appearance of orbital structures, both globes, optic nerves, optic chiasm, optic tracts, and optic radiations. IMPRESSION: 1. Right superior frontal and occipital deep white matter foci of diffusion restriction, denoting acute infarcts. new finding. 2. Partial loss of the signal void of the right transverse and sigmoid sinuses, suggests venous thrombosis and needs better MRV correlation. new finding. 3. Attenuated cavernous and supra clinoid segments of the right ICA, MRA/CTA is advised. new finding. 4. right high parietal chronic infarct. stable 5. No abnormal enhancement of the brain parenchyma or meninges. 6. chronic microvascular ischemic angiopathy. stable 7. Age-related brain involuational changes. Stable [facility] ER was called at [phone] at 04:45 PM EST, 02/07/2024, and Dr Avila was informed regarding the presence of Significant Medical Findings on the report. Electronically signed by Shamar Prince 02-07-2024 4:57 PM
[2024-02-07] MEDS: OPTIRAY 320 125ml IV ONE (20:26)
[2024-02-07] MEDS: HALOPERIDOL LACTATE 5 MG/ML 1 ML VIAL IM PRN (22:10)
--- NOTE | 2024-02-07 22:21 | CT Scan Report ---
Exam(s): CTA HEAD W/WO Contrast IV Amt: 119ML OPTIRAY 320 EXAM: CT Angiography Head Without and With Intravenous Contrast CLINICAL HISTORY: stroke w/u. TECHNIQUE: Axial computed tomographic angiography images of the head without and with intravenous contrast. CTDI is 10.54 mGy and DLP is 340.5 mGy-cm. Automated exposure control was utilized for the study. A dose lowering technique was utilized adhering to the principles of ALARA. MIP reconstructed images were created and reviewed. CONTRAST: Patient received 119ML OPTIRAY 320 of IV contrast COMPARISON: CT head without contrast performed at 00: 04 hours FINDINGS: VASCULATURE: Right internal carotid artery: Atherosclerotic calcification of the right cavernous and supraclinoid internal carotid artery without significant stenosis or occlusion. No aneurysm. Right anterior cerebral artery: The right A1 segment is hypoplastic. The right anterior cerebral artery is small in caliber but is patent without stenosis. The distal right anterior cerebral branches with a rise from the dominant left anterior cerebral artery. No aneurysm. Right middle cerebral artery: Unremarkable. No occlusion or significant stenosis. No aneurysm. Right posterior cerebral artery: Unremarkable. No occlusion or significant stenosis. No aneurysm. Right vertebral artery: Unremarkable as visualized. Left internal carotid artery: Atherosclerotic calcification of the left cavernous and supraclinoid internal carotid artery without significant stenosis or occlusion. No aneurysm. Left anterior cerebral artery: Left anterior cerebral artery is patent without stenosis or occlusion. Left middle cerebral artery: Unremarkable. No occlusion or significant stenosis. No aneurysm. Left posterior cerebral artery: Unremarkable. No occlusion or significant stenosis. No aneurysm. Left vertebral artery: Unremarkable as visualized. Basilar artery: Unremarkable. No occlusion or significant stenosis. No aneurysm. HEAD: Brain: Precontrast imaging demonstrates stable appearance of the parenchyma. No intracranial hemorrhage. No significant mass-effect. Periventricular deep white matter hypodense changes noted. Stable hypodense area involving a right parietal gyrus. No abnormal parenchymal enhancement. Ventricles: Unremarkable. No ventriculomegaly. Bones/joints: No acute fracture. Soft tissues: Unremarkable. Sinuses: Unremarkable as visualized. No acute sinusitis. Mastoid air cells: Unremarkable as visualized. No mastoid effusion. IMPRESSION: 1. Precontrast imaging is stable from the examination performed earlier the same day. No intracranial hemorrhage. No significant new mass- effect. Similar diffuse parenchymal involutional changes and deep white matter hypodense changes. Stable probable subacute to chronic focal area of encephalomalacia involving the right parietal region. 2. Negative intracranial CTA examination. No critical stenosis or occlusion. Electronically signed by: Margarito White MD 02/07/24 22:21 PM
--- NOTE | 2024-02-07 22:28 | CT Scan Report ---
Exam(s): CTA NECK With Contrast IV Amt: 119ML OPTIRAY 320 EXAM: CT Angiography Neck With Intravenous Contrast CLINICAL HISTORY: stroke workup. TECHNIQUE: Routine carotid CT angiography protocol was performed with intravenous contrast. NASCET criteria using the distal ICAs for comparison were used for evaluation of stenoses. CTDI is 10.54 mGy and DLP is 340.5 mGy-cm. Automated exposure control was utilized for the study. A dose lowering technique was utilized adhering to the principles of ALARA. MIP reconstructed images were created and reviewed. CONTRAST: Patient received 119ML OPTIRAY 320 of IV contrast COMPARISON: None. FINDINGS: VASCULATURE: Right common carotid artery: The right common carotid artery is relatively small in caliber when compared to the contralateral vessel but demonstrates no focal stenosis or occlusion. Right internal carotid artery: Unremarkable. Extracranial segment is patent with no occlusion or significant stenosis. No dissection. Right external carotid artery: Unremarkable. No occlusion. Right vertebral artery: Unremarkable. No occlusion or significant stenosis. No dissection. Left common carotid artery: Unremarkable. No occlusion or significant stenosis. No dissection. Left internal carotid artery: Atherosclerotic calcification involving the proximal left internal carotid artery at the carotid bifurcation. No significant stenosis by NASCET criteria. The mid to distal left internal carotid artery is otherwise patent. No dissection. Left external carotid artery: Unremarkable. No occlusion. Left vertebral artery: Unremarkable. No occlusion or significant stenosis. No dissection. Brachiocephalic and subclavian arteries: The origin of the brachiocephalic artery is not included. However, there appears to be near transluminal calcific atherosclerotic disease suggesting a significant stenosis, best appreciated on coronal reformatted imaging (series 700; image 38-48). The distal brachiocephalic artery is patent. Aorta: The aortic arch is patent without dissection or aneurysm. 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 There is 60-70% luminal stenosis involving the mid to distal left vertebral artery at the C3-4 level secondary to prominent hypertrophic osteophytes of the adjacent facet. The distal left vertebral artery is widely patent. NECK: Bones/joints: Multilevel degenerative changes incidentally noted. No acute osseous abnormality. Soft tissues: Unremarkable. Lung apices: Clear. CAROTID STENOSIS REFERENCE USING NASCET CRITERIA: % ICA stenosis = (1 - narrowest ICA diameter/diameter of distal cervical ICA) x 100. Mild - <50% stenosis. Moderate - 50-69% stenosis. Severe - 70-94% stenosis. Near occlusion - 95-99% stenosis. Occluded - 100% stenosis. IMPRESSION: 1. 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 There is 60-70% luminal stenosis involving the mid to distal left vertebral artery at the C3-4 level secondary to prominent hypertrophic osteophytes of the adjacent facet. The distal left vertebral artery is widely patent. The right vertebral artery is widely patent. 2. The origin of the brachiocephalic artery is not included. However, there appears to be near transluminal calcific atherosclerotic disease suggesting a significant stenosis, best appreciated on coronal reformatted imaging (series 700; image 38-48). The distal brachiocephalic artery is patent. 3. The right common carotid artery is relatively small in caliber when compared to the contralateral vessel, but demonstrates no focal stenosis or occlusion. This may be a related to suspected critical stenosis of the brachiocephalic artery. The right carotid bifurcation and internal carotid artery are patent. 4. The left common carotid and internal carotid arteries are patent without critical stenosis or occlusion. Electronically signed by: Margarito White MD 02/07/24 22:27 PM
[2024-02-07] MEDS: ASPIRIN 81 MG ECTAB PO SCH (22:49)
[2024-02-08] MEDS: cefTRIAXone SODIUM 2,000 MG/50 ML BAG IV SCH (04:32)
[2024-02-08 07:18] LABS: Hematocrit (blood only) 37.2 % (37.0-47.0); Hemoglobin 12.6 g/dl (12.0-16.0); Mean Corpuscular Hemoglobin 29.6 pg (25.0-34.0); Mean Corpuscular Hgb Conc 33.9 g/dL (32.0-36.0); Mean Corpuscular Volume 87.5 fL (80.0-100.0); Platelet Count 282 K/uL (130-400); RDW Coefficient of Variation 12.8 % (11.5-14.5); RDW Standard Deviation 41.1 fL (36.4-46.3); Red Blood Count 4.25 M/uL (4.20-5.40); White Blood Count 6.41 K/ul (4.8-10.8)
[2024-02-08 07:31] LABS: BUN Creatinine Ratio 8.6 (10-20); Calcium 8.9 mg/dl (8.6-10.3); Magnesium 1.8 mg/dl (1.7-2.4); Phosphorus 3.2 mg/dl (2.5-4.9); Potassium 4.3 mmol/L (3.5-5.1)
[2024-02-08] MEDS: ATORVASTATIN 10 MG TAB PO SCH (08:52)
--- NOTE | 2024-02-08 10:42 | Communication Note ---
Date of Service: February 08, 2024 MRI of the brain shows 2 discrete areas of infarct within the right MCA territory. CTA head and neck shows atherosclerotic disease particularly in the right ICA distribution Echocardiogram shows no cardiac source of emboli with preserved ejection fraction and left atrium Intracranial vessels display intracranial atherosclerotic disease. Recommend aspirin 81 mg in addition to Plavix 75 mg plus atorvastatin for 3 months then switch to single antiplatelet( if tolerated from the GI standpoint). Consider adding Aricept 5 mg at bedtime and monitor for response. Follow-up with neurology as an outpatient
[2024-02-08] MEDS: CLOPIDOGREL BISULFATE 75 MG TAB PO SCH (12:37)
[2024-02-08] MEDS: CYANOCOBALAMIN (B-12) 500 MCG TABLET PO SCH (12:37)
--- NOTE | 2024-02-08 15:37 | Hospitalist Progress Note ---
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 Patient denied any headache or chest pain or shortness of breath or abdominal pain or dysuria symptoms. Patient's daughter thinks patient is not safe living independently at current [facility] residence. Per daughter, her dementia has been worsening over the last 6 months. Outpatient brain MRI was recommended by [facility] neurologist. She is being managed for the following: Complicated UTI Sepsis POA: Secondary to UTI. Temperature 35.9C, heart rate elevated at presentation. Lactate WNL. Metabolic encephalopathy, delirium on dementia: Secondary to above. Patient started on Rocephin 02/06, continue. c/w probiotic. Follow admitting urine culture and blood culture. Brain MRI RE rapidly progressing dementia as per outpatient [facility] neurology r ecommendations --> obtained, see below. Delirium precautions. PT OT eval. Social service re: placement - (Patient deemed unsafe by family to be living independently. Family interested in placing pat ient at a local memory unit facility.) Acute stroke: MRI brain with 2 discrete areas of infarct within the right MCA territory, CTA of head and neck shows atherosclerotic disease especially in right ICA distribution. Echocardiogram reviewed. Neurology evaluated, recommends DAPT and atorvastatin. Patient to follow-up with neurology upon discharge. 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 Other chronic medical conditions: Continue with/resume home meds as and when able. hypertension, BP on the lower side at presentation, now uptrending, resume home meds. hyperlipidemia on statin Rx COPD/ILD, lung status at baseline hypothyroidism, euthyroid as of this admission's TSH cervical/metastatic uterine cancer status post surgery/chemoradiation, currently in remission CRI, at baseline past tobacco abuse DVT prophylaxis. Heparin subcu DNR as per patient's prior directives as per daughter/POA Ms. Winter Ohara. [phone]. Dispo: Patient will need placement. Text document was generated using [employer] voice recognition software. It may contain grammatical or spelling errors. Kindly contact undersigned for clarification of any documentation item in question. Admission and Anticipated Discharge Date Admission Date: February 07, 2024 Subjective Patient was seen and examined at bedside. Patient was sitting up in chair, on room air, NAD, resting comfortably. Patient is pleasantly confused, denies any pain or weakness or numbness or tingling. Per RN, patient was agitated overnight and hit RN. Needed IV Haldol. Physical Exam Physical Exam: GENERAL: Demented, comfortable, no respiratory distress SKIN: Normal color, warm HEENT: [place] palpebral conjunctivae, no ptosis, Moist buccal mucosa NECK : Supple, no tenderness CHEST : Decreased breath sounds, no tenderness HEART : RRR, no obvious murmurs ABDOMEN: no distention, nontender EXTREMITIES : No LE swelling/tenderness, no other conspicuous deformities noted NEUROLOGIC : Demented, no facial asymmetry, no other gross focality, bilateral limbs power symmetrical and 5 x 5 Results & Data Results & Data Vital Signs (Past 12 Hours) Vital Signs Temp Pulse Pulse Resp BP Pulse Ox O2 Del Method 02/08/24 14:49 36.5 C 79 16 140/85 97 Room Air 02/08/24 11:02 36.5 C 93 H 16 128/72 92 Room Air 02/08/24 09:30 Room Air 02/08/24 08:03 36.4 C L 79 18 168/77 H 94 Room Air 02/08/24 07:00 61 02/08/24 04:00 36.7 C 84 18 136/62 93 Room Air
[2024-02-08] MEDS: ACETAMINOPHEN 325 MG TAB PO PRN (20:21)
[2024-02-09] MEDS ORDERED: Nursing to Pharmacy Communication SCH (01:30)
[2024-02-09 07:17] LABS: Hematocrit (blood only) 36.7 % (37.0-47.0); Hemoglobin 12.3 g/dl (12.0-16.0); Mean Corpuscular Hemoglobin 29.4 pg (25.0-34.0); Mean Corpuscular Hgb Conc 33.5 g/dL (32.0-36.0); Mean Corpuscular Volume 87.8 fL (80.0-100.0); Platelet Count 291 K/uL (130-400); RDW Coefficient of Variation 12.5 % (11.5-14.5); RDW Standard Deviation 40.1 fL (36.4-46.3); Red Blood Count 4.18 M/uL (4.20-5.40); White Blood Count 6.87 K/ul (4.8-10.8)
[2024-02-09 07:27] LABS: BUN Creatinine Ratio 9.3 (10-20); Calcium 8.7 mg/dl (8.6-10.3); Creatinine Clr Calc Pharmacy 22.8 ml/min; Magnesium 1.7 mg/dl (1.7-2.4); Phosphorus 3.6 mg/dl (2.5-4.9); Potassium 3.7 mmol/L (3.5-5.1)
--- NOTE | 2024-02-09 15:10 | Hospitalist Progress Note ---
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 Patient denied any headache or chest pain or shortness of breath or abdominal pain or dysuria symptoms. Patient's daughter thinks patient is not safe living independently at current [facility] residence. Per daughter, her dementia has been worsening over the last 6 months. Outpatient brain MRI was recommended by [facility] neurologist. She is being managed for the following: Complicated UTI Sepsis POA: Secondary to UTI. Temperature 35.9C, heart rate elevated at presentation. Lactate WNL. Metabolic encephalopathy, delirium on dementia: Secondary to above. Patient started on Rocephin 02/06, continue. c/w probiotic. Brain MRI RE rapidly progressing dementia as per outpatient [facility] neurology recommendations --> obtained, see below. Delirium precautions. PT OT eval. Social service re: placement - (Patient deemed unsafe by family to be living independently. Family interested in placing patient at a local memory unit facility.) Urine culture grew 3 types of organisms and the blood cultures are negative Will continue antibiotic for a total of 5 days Acute stroke: MRI brain with 2 discrete areas of infarct within the right MCA territory, CTA of head and neck shows atherosclerotic disease especially in right ICA distribution. Echocardiogram reviewed. Neurology evaluated, recommends DAPT and atorvastatin. Patient to follow-up with neurology upon discharge. 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 Remains medically and psychiatrically stable to be transferred Other chronic medical conditions: Continue with/resume home meds as and when able. Hypertension, BP on the lower side at presentation, now uptrending, resume home meds. Hyperlipidemia on statin Rx COPD/ILD, lung status at baseline Hypothyroidism, euthyroid as of this admission's TSH Cervical/metastatic uterine cancer status post surgery/chemoradiation, currently in remission CRI, at baseline Past tobacco abuse DVT prophylaxis. Heparin subcu DNR as per patient's prior directives as per daughter/POA Ms. Winter Ohara. [phone]. Dispo: Patient will need placement. Text document was generated using [employer] voice recognition software. It may contain grammatical or spelling errors. Kindly contact undersigned for clarification of any documentation item in question. Admission and Anticipated Discharge Date Admission Date: February 07, 2024 Subjective 02/09/2024 The patient was seen and examined in medical telemetry unit She has been stable and awaiting placement Denies any significant symptoms Review of Systems Review of Systems: All systems reviewed and are unremarkable except as noted below Physical Exam Physical Exam: Sitting on a chair without any acute distress or symptoms Constitutional: average body habitus; not ill appearing Eyes: PERRL, conjunctivae normal, anicteric sclerae ENMT: external ear and nose normal, oropharynx normal Neck: trachea midline, no thyromegaly Respiratory: no respiratory distress Auscultation: lungs clear to auscultation bilaterally Cardiovascular: Rate/Rhythm: regular rate and regular rhythm; not tachycardic Heart Sounds: normal S1 and normal S2; no murmur Extremities: no edema Gastrointestinal (Abdomen): Inspection/Auscultation: normal bowel sounds; abdo men not distended Percussion/Palpation: abdomen soft; abdomen nontender Musculoskeletal: No acute arthritis involving any of the joint Neurologic: normal touch/pain/proprioception and moves all extremities; no focal motor deficits Lymphatic: no cervical or axillary lymphadenopathy Results & Data Results & Data Vital Signs (Past 12 Hours) Vital Signs Temp Pulse Pulse Resp BP Pulse Ox O2 Del Method 02/09/24 14:56 36.3 C L 74 16 126/78 96 Room Air 02/09/24 10:45 36.6 C 94 H 16 97/64 L 97 Room Air 02/09/24 09:00 65 02/09/24 07:13 37.0 C 73 15 150/78 H 93 Room Air Laboratory Results Short CBC 02/09/24 Range/Units 05:59 WBC 6.87 (4.8-10.8) K/ul Hgb 12.3 (12.0-16.0) g/dl Hct 36.7 L (37.0-47.0) % Plt Count 291 (130-400) K/uL [facility] 02/09/24 05:59 Sodium 134 L Potassium 3.7 Chloride 101 Carbon Dioxide 23 BUN 13 Creatinine 1.40 H Glucose 116 H Calcium 8.7 Medications Administered Current Inpatient Medications Acetaminophen (Acetaminophen 325 Mg Tab) 650 mg PO QID PRN PRN Reason: pain/fever Stop: 03/08/24 01:44 Last Admin: 02/08/24 20:21 Dose: 650 mg Aspirin (Aspirin 81 Mg Ectab) [facility] Stop: 03/08/24 18:44 Last Admin: 02/09/24 10:36 Dose: 81 mg Atorvastatin Calcium (Atorvastatin 10 Mg Tab) 10 mg PO MoWeFr@0900 [facility] Stop: 03/09/24 08:59 Last Admin: 02/08/24 08:52 Dose: 10 mg Clopidogrel Bisulfate (Clopidogrel Bisulfate 75 Mg Tab) [facility] Stop: 03/09/24 12:14 Last Admin: 02/09/24 10:36 Dose: 75 mg Cyanocobalamin (Cyanocobalamin (B-12) 500 Mcg Tablet) 500 mcg PO BID [facility] Stop: 03/09/24 12:29 Last Admin: 02/09/24 10:36 Dose: 500 mcg Haloperidol Lactate (Haloperidol Lactate 5 Mg/Ml 1 Ml Vial) 2 mg IM Q2H PRN PRN Reason: Agitation Stop: 03/08/24 01:44 Last Admin: 02/07/24 22:10 Dose: 2 mg Heparin Sodium (Porcine) (Heparin Sod 5,000 Unit/0.5 Ml Vial) 5,000 units SQ Q8 [facility] Stop: 03/08/24 05:59 Last Admin: 02/09/24 05:26 Dose: 5,000 units Ceftriaxone Sodium (Rocephin) 2,000 mg in 50 mls @ 100 mls/hr IV Q24H [facility] Stop: 02/18/24 01:59 Last Infusion: 02/09/24 07:24 Dose: Infused Lactobacillus Acidophilus (Advanced Probiotic 625 Mg Capsule) 1,250 mg PO DAILY [facility] Stop: 03/08/24 12:29 Last Admin: 02/09/24 10:36 Dose: 1,250 mg Levothyroxine Sodium (Levothyroxine Sodium 75 Mcg Tablet) 75 mcg PO DAILYBB [facility] Stop: 03/08/24 06:29 Last Admin: 02/09/24 05:31 Dose: 75 mcg Lisinopril (Lisinopril 10 Mg Tab) 10 mg PO DAILY [facility] Stop: 03/08/24 12:29 Last Admin: 02/09/24 10:36 Dose: 10 mg Metoprolol Succinate (Metoprolol Succ 25mg Ext Rel Tab) 25 mg PO DAILY [facility] Stop: 03/08/24 08:59 Last Admin: 02/09/24 10:36 Dose: 25 mg
[2024-02-10 07:34] LABS: Hematocrit (blood only) 37.3 % (37.0-47.0); Hemoglobin 12.4 g/dl (12.0-16.0); Mean Corpuscular Hemoglobin 29.2 pg (25.0-34.0); Mean Corpuscular Hgb Conc 33.2 g/dL (32.0-36.0); Mean Corpuscular Volume 87.8 fL (80.0-100.0); Mean Platelet Volume 8.7 fL (9.4-12.4); Platelet Count 280 K/uL (130-400); RDW Coefficient of Variation 13.2 % (11.5-14.5); RDW Standard Deviation 42.5 fL (36.4-46.3); Red Blood Count 4.25 M/uL (4.20-5.40); White Blood Count 5.19 K/ul (4.8-10.8)
--- NOTE | 2024-02-10 14:05 | Hospitalist Progress Note ---
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 Patient denied any headache or chest pain or shortness of breath or abdominal pain or dysuria symptoms. Patient's daughter thinks patient is not safe living independently at current [facility] residence. Per daughter, her dementia has been worsening over the last 6 months. Outpatient brain MRI was recommended by [facility] neurologist. She is being managed for the following: Complicated UTI Sepsis POA: Secondary to UTI. Temperature 35.9C, heart rate elevated at presentation. Lactate WNL. Metabolic encephalopathy, delirium on dementia: Secondary to above. Patient started on Rocephin 02/06, continue. c/w probiotic. Brain MRI RE rapidly progressing dementia as per outpatient [facility] neurology recommendations --> obtained, see below. Delirium precautions. PT OT eval. Social service re: placement - (Patient deemed unsafe by family to be living independently. Family interested in placing patient at a local memory unit facility.) Urine culture grew 3 types of organisms and the blood cultures are negative Will continue antibiotic for a total of 5 days Denies any urinary symptoms and does not have any signs and or symptoms of infection Acute stroke: MRI brain with 2 discrete areas of infarct within the right MCA territory, CTA of head and neck shows atherosclerotic disease especially in right ICA distribution. Echocardiogram reviewed. Neurology evaluated, recommends DAPT and atorvastatin. Patient to follow-up with neurology upon discharge. 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 Remains medically and psychiatrically stable to be transferred Denies any suicidal ideation Other chronic medical conditions: Continue with/resume home meds as and when able. Hypertension, BP on the lower side at presentation, now uptrending, resume home meds. Hyperlipidemia on statin Rx COPD/ILD, lung status at baseline Hypothyroidism, euthyroid as of this admission's TSH Cervical/metastatic uterine cancer status post surgery/chemoradiation, currently in remission CRI, at baseline Past tobacco abuse DVT prophylaxis. Heparin subcu DNR as per patient's prior directives as per daughter/POA Ms. Winter Ohara. [phone]. Dispo: Patient will need placement. Text document was generated using [employer] voice recognition software. It may contain grammatical or spelling errors. Kindly contact undersigned for clarification of any documentation item in question. Awaiting placement Admission and Anticipated Discharge Date Admission Date: February 07, 2024 Subjective 02/09/2024 The patient was seen and examined in medical telemetry unit She has been stable and awaiting placement Denies any significant symptoms 02/10/2024 The patient was seen and examined in medical telemetry unit She has been stable and sitting on a chair without any distress and/or symptoms Awaiting placement Review of Systems Review of Systems: All systems reviewed and are unremarkable except as noted below Physical Exam Physical Exam: Sitting on a chair without any acute distress or symptoms Constitutional: average body habitus; not ill appearing Eyes: PERRL, conjunctivae normal, anicteric sclerae ENMT: external ear and nose normal, oropharynx normal Neck: trachea midline, no thyromegaly Respiratory: no respiratory distress Auscultation: lungs clear to auscultation bilaterally Cardiovascular: Rate/Rhythm: regular rate and regular rhythm; not tachycardic Heart Sounds: normal S1 and normal S2; no murmur Extremities: no edema Gastrointestinal (Abdomen): Inspection/Auscultation: normal bowel sounds; abdomen not distended Percussion/Palpation: abdomen soft; abdomen nontender Neurologic: normal touch/pain/proprioception and moves all extremities; no focal motor deficits Lymphatic: no cervical or axillary lymphadenopathy Results & Data Results & Data Vital Signs (Past 12 Hours) Vital Signs Temp Pulse Pulse Resp BP Pulse Ox O2 Del Method 02/10/24 11:43 36.6 C 74 20 137/83 95 Room Air 02/10/24 10:02 69 02/10/24 10:02 Room Air 02/10/24 07:41 36.7 C 71 18 99/61 L 92 Room Air 02/10/24 02:32 36.5 C 72 18 145/74 H 92 Room Air Laboratory Results Short CBC 02/10/24 Range/Units 06:57 WBC 5.19 (4.8-10.8) K/ul Hgb 12.4 (12.0-16.0) g/dl Hct 37.3 (37.0-47.0) % Plt Count 280 (130-400) K/uL Medications Administered Current Inpatient Medications Acetaminophen (Acetaminophen 325 Mg Tab) 650 mg PO QID PRN PRN Reason: pain/fever Stop: 03/08/24 01:44 Last Admin: 02/08/24 20:21 Dose: 650 mg Aspirin (Aspirin 81 Mg Ectab) [facility] Stop: 03/08/24 18:44 Last Admin: 02/10/24 07:57 Dose: 81 mg Atorvastatin Calcium (Atorvastatin 10 Mg Tab) 10 mg PO MoWeFr@0900 [facility] Stop: 03/09/24 08:59 Last Admin: 02/10/24 07:59 Dose: 10 mg Clopidogrel Bisulfate (Clopidogrel Bisulfate 75 Mg Tab) 75 mg PO [facility] Stop: 03/09/24 12:14 Last Admin: 02/10/24 07:59 Dose: 75 mg Cyanocobalamin (Cyanocobalamin (B-12) 500 Mcg Tablet) 500 mcg PO BID [facility] Stop: 03/09/24 12:29 Last Admin: 02/10/24 07:56 Dose: 500 mcg Haloperidol Lactate (Haloperidol Lactate 5 Mg/Ml 1 Ml Vial) 2 mg IM Q2H PRN PRN Reason: Agitation Stop: 03/08/24 01:44 Last Admin: 02/09/24 20:13 Dose: 2 mg Heparin Sodium (Porcine) (Heparin Sod 5,000 Unit/0.5 Ml Vial) 5,000 units SQ Q8 [facility] Stop: 03/08/24 05:59 Last Admin: 02/10/24 06:22 Dose: 5,000 units Ceftriaxone Sodium (Rocephin) 2,000 mg in 50 mls @ 100 mls/hr IV Q24H [facility] Stop: 02/18/24 01:59 Last Infusion: 02/10/24 07:06 Dose: Infused Lactobacillus Acidophilus (Advanced Probiotic 625 Mg Capsule) 1,250 mg PO DAILY [facility] Stop: 03/08/24 12:29 Last Admin: 02/10/24 07:56 Dose: 1,250 mg Levothyroxine Sodium (Levothyroxine Sodium 75 Mcg Tablet) 75 mcg PO DAILYBB [facility] Stop: 03/08/24 06:29 Last Admin: 02/10/24 06:36 Dose: 75 mcg Lisinopril (Lisinopril 10 Mg Tab) 10 mg PO DAILY [facility] Stop: 03/08/24 12:29 Last Admin: 02/10/24 08:39 Dose: Not Given Metoprolol Succinate (Metoprolol Succ 25mg Ext Rel Tab) 25 mg PO DAILY [facility] Stop: 03/08/24 08:59 Last Admin: 02/10/24 08:39 Dose: 25 mg
[2024-02-10] MEDS: LOPERAMIDE HCL 2 MG CAP PO PRN (15:41)
--- NOTE | 2024-02-11 08:47 | Hospitalist Progress Note ---
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 Patient denied any headache or chest pain or shortness of breath or abdominal pain or dysuria symptoms. Patient's daughter thinks patient is not safe living independently at current [facility] residence. Per daughter, her dementia has been worsening over the last 6 months. Outpatient brain MRI was recommended by [facility] neurologist. She is being managed for the following: Complicated UTI Sepsis POA: Secondary to UTI. Temperature 35.9C, heart rate elevated at presentation. Lactate WNL. Metabolic encephalopathy, delirium on dementia: Secondary to above. Patient started on Rocephin 02/06, continue. c/w probiotic. Brain MRI RE rapidly progressing dementia as per outpatient [facility] neurology recommendations --> obtained, see below. Delirium precautions. PT OT eval. Social service re: placement - (Patient deemed unsafe by family to be living independently. Family interested in placing patient at a local memory unit facility.) Urine culture grew 3 types of organisms and the blood cultures are negative Will continue antibiotic for a total of 5 days - completing today, 1/2 Denies any urinary symptoms and does not have any signs and or symptoms of infection Acute stroke: MRI brain with 2 discrete areas of infarct within the right MCA territory, CTA of head and neck shows atherosclerotic disease especially in right ICA distribution. Echocardiogram reviewed. Neurology evaluated, recommends DAPT and atorvastatin x 3 months and then continue single antiplatelet Neuro recommended consideration of Aricept 5mg trial - discussed with POA/daughter who is concerned about side effects and does not want to pursue trial Patient to follow-up with neurology upon discharge Remains stable without any symptoms of TIA and/or stroke Denies any neurological symptoms Witnessed fall Slid out of bed, aided down by staff. No head trauma Tylenol PRN, ice to affected area, monitor Suicidal ideation: Suicidal statements per family member [employer] MANAGER, patient currently denies suicidality Psychiatric lesion evaluated, appreciate. Remains medically and psychiatrically stable to be transferred Denies any suicidal ideation Other chronic medical conditions: Continue with/resume home meds as and when able. Hypertension, BP on the lower side at presentation, now uptrending, resume home meds. Hyperlipidemia on statin Rx COPD/ILD, lung status at baseline Hypothyroidism, euthyroid as of this admission's TSH Cervical/metastatic uterine cancer status post surgery/chemoradiation, currently in remission CRI, Cr 1.52 today, baseline ~1.3-1.4. Plan to hold tomorrow's lisinopril, repeat BMP Past tobacco abuse DVT prophylaxis. Heparin subcu DNR as per patient's prior directives as per daughter/POA Ms. Winter Ohara. [phone]. Dispo: Patient will need placement - placed referral at [facility] Daughter Winter undated over the phone. I spent a total of 45 minutes coordinating, documenting, and providing care for this patient excluding time spent in the performance of separately billed services. Admission and Anticipated Discharge Date Admission Date: February 07, 2024 Supervising Physician Co-Signing Physician Notes Attending addendum: The patient was seen and examined in medical telemetry unit She has had a fall while he was stooping down at the restroom without any significant injury She has been waiting to go to rehab facility Lying in bed without any apparent distress Remains hemodynamically stable Her labs and medications were reviewed Has been suffering from complicated UTI and metabolic encephalopathy with dementia Has acute stroke without any sequela Agree with assessment and plan as below and above by Stefanie Gomez PA-C and take the full responsibility of the care in the hospital Dr Juan F Hairston Subjective Patient seen and examined in 283 bed 2. Sitting upright in bed, discussing what time she is clinical and to work today-pleasantly confused. Denies any new complaints or acute pain. Remainder of ROS unobtainable due to mental state. Notified by RN mid-morning that patient had a witnessed fall attempting to self- transfer from bedside chair to bed. Was aided to the ground with help of staff. No head trauma or injury. Review of Systems Review of Systems: Unobtainable due to cognitive status Physical Exam Physical Exam: Gen: WD/WN, NAD, sitting up at side of bed, A&Ox1, pleasantly confused, cooperative HEENT: Normocephalic, atraumatic, conjunctivae moist, sclerae anicteric, mucous membranes moist Lung: Clear to Auscultation bilaterally, diminished at bases Heart: Regular rate, regular rhythm Abdomen: Soft, NT, ND +BS x 4 Extremities: trace edema Skin: Warm, no rash Results & Data Results & Data Vital Signs (Past 12 Hours) Vital Signs Temp Pulse Resp BP Pulse Ox O2 Del Method 02/11/24 07:45 Room Air 02/11/24 07:20 36.6 C 69 18 115/74 94 Room Air 02/11/24 03:10 36.6 C 81 18 109/71 94 Room Air Laboratory Results [facility] 02/11/24 08:03 Sodium 137 Potassium 4.0 Chloride 103 Carbon Dioxide 26 BUN 24 H Creatinine 1.52 H Glucose 103 H Calcium 9.1 Diagnostic Findings Chest X-Ray 02/06/24 23:40 Exam(s): XR CXR 1 VIEW EXAM: XR Chest, 1 View CLINICAL HISTORY: weakness. TECHNIQUE: Frontal view of the chest. COMPARISON: No relevant prior studies available. FINDINGS: Lungs: The presumed asymmetric elevation of the right hemidiaphragm. No definite focal airspace consolidation. The pulmonary vasculature is unremarkable. Pleural space: Unremarkable. No pneumothorax. No large pleural effusion. Heart: Unremarkable. No cardiomegaly. Mediastinum: No significant abnormality identified. The trachea is midline. Bones/joints: Unremarkable. No acute fracture. IMPRESSION: No focal consolidation or acute cardiopulmonary process identified. Asymmetric elevation of the right hemidiaphragm of uncertain chronicity. Electronically signed by: Margarito White MD 02/07/24 02:[address] 02/06/24 23:41 EXAM: CT head/brain wo con CLINICAL HISTORY: AMS PW/GS TECHNIQUE: An axial non-contrast CT scan of the brain was performed from the skull base to the high parietal region. One of the following dose reduction techniques was utilized for this exam: Automated exposure control, adjustment of the mA and/or kV according to patient size, and use of iterative reconstruction. (CTDI: 36.43 mGy, DLP: 547.75 mGy*cm) COMPARISON: CT: 10/09/2021 FINDINGS: Brain Parenchyma: No evidence of intracerebral or extra-axial hemorrhage was seen. Hypodense areas are seen in the right frontal and parietal periventricular regions likely due to prior vascular events. Redemonstration of age-appropriate brain involutional changes as evident by prominent intra-and extra-axial CSF spaces. Redemonstration of chronic microvascular ischemic changes seen. Ventricular System: Prominent intra-and extra-axial CSF spaces. No evidence of hydrocephalus or ventricular enlargement. Subarachnoid Spaces: Normal sulci and cisterns. No evidence of subarachnoid hemorrhage or extra-axial fluid collections. Cerebellum and Brainstem: Normal size and signal. No masses, lesions, or areas of abnormal signal. Orbits: Normal appearance of the globes, optic nerves, and extraocular muscles. No evidence of orbital masses or abnormal signals. Sinuses: Clear paranasal sinuses. No evidence of sinusitis or mucosal thickening. Mastoid Air Cells: Clear mastoid air cells. No evidence of mastoiditis. Skull: Normal skull morphology. IMPRESSION: 1. No evidence of intracerebral or extra-axial hemorrhage. 2. Hypodense areas are seen in the right frontal and parietal periventricular regions likely due to prior vascular events. Early changes of acute ischemic infarction may not be detected on CT scan, MRI stroke protocol is advised if clinically indicated. 3. Interval new findings. 4. Redemonstration of age-appropriate brain involutional changes and chronic microvascular ischemic changes as mentioned above. Electronically signed by Shamar Prince 02-07-2024 01:36 AM Brain MRI 02/07/24 01:47 EXAM: MR brain wo/w con CLINICAL HISTORY: Rapid progression Dementia confusion r/o stroke or mets no head trauma. TECHNIQUE: Different pulse sequences were performed in different planes with and without contrast injection of 6 ml Gadavist for the brain. Images were sent through PACS for interpretation. COMPARISON: prior CT 02/06/2024. FINDINGS: Brain Parenchyma: Right superior frontal and occipital deep white matter foci of diffusion restriction, denoting acute infarcts. A small right superior parietal patchy cortical and subcortical area of low T1/FLAIR and high T2 signal intensity, with peripheral high FLAIR rim, denoting gliosis, with corresponding facilitated diffusion is noted. Multiple foci of an altered signal are seen involving the bilateral fronto-parietal subcortical white matter, eliciting high T2/FLAIR signal intensities, some are low on T1 WIS, with no perifocal edema or mass effect. no corresponding diffusion restriction with isointense ADC denoting chronicity. Bilateral deep white matter periventricular confluent areas and sheets of bright T2 and FLAIR signal denote small arterial disease (Fazekas 2). Bilateral prominent Virchow's Lobo spaces of the basal ganglia and centrum semiovale. No shift of midline structures. No intracerebral or extra-axial hematomas or masses. Post-Contrast Findings: No abnormal enhancement of the brain parenchyma or meninges. Ventricles and Sulci: Accentuated cortical sulci, Sylvian fissures, and extra-axial CSF spaces are associated with mild to moderate symmetrical dilatation of the supra-tenorial ventricular system. Brainstem and Cerebellum: Normal appearance of the brainstem and cerebellum without focal lesions or abnormal enhancement. Normal MRI appearance of the vestibule cochlear nerves, and cerebellopontine angles with no definite masses. Vessels: Attenuated cavernous and supra clinoid segments of the right ICA. Partial loss of the signal void of the right transverse and sigmoid sinuses, suggests venous thrombosis and needs better MRV correlation. Skull and Calvarium: No evidence of skull vault lesions or abnormal marrow signals within the calvarium. Paranasal sinuses and mastoid air cells:- clear. Orbit:- Normal MRI appearance of orbital structures, both globes, optic nerves, optic chiasm, optic tracts, and optic radiations. IMPRESSION: 1. Right superior frontal and occipital deep white matter foci of diffusion restriction, denoting acute infarcts. new finding. 2. Partial loss of the signal void of the right transverse and sigmoid sinuses, suggests venous thrombosis and needs better MRV correlation. new finding. 3. Attenuated cavernous and supra clinoid segments of the right ICA, MRA/CTA is advised. new finding. 4. right high parietal chronic infarct. stable 5. No abnormal enhancement of the brain parenchyma or meninges. 6. chronic microvascular ischemic angiopathy. stable 7. Age-related brain involuational changes. Stable [facility] ER was called at [phone] at 04:45 PM EST, 02/07/2024, and Dr Avila was informed regarding the presence of Significant Medical Findings on the report. Electronically signed by Shamar Prince 02-07-2024 4:57 PM Head CTA 02/07/24 17:13 Exam(s): CTA HEAD W/WO Contrast IV Amt: 119ML OPTIRAY 320 EXAM: CT Angiography Head Without and With Intravenous Contrast CLINICAL HISTORY: stroke w/u. TECHNIQUE: Axial computed tomographic angiography images of the head without and with intravenous contrast. CTDI is 10.54 mGy and DLP is 340.5 mGy-cm. Automated exposure control was utilized for the study. A dose lowering technique was utilized adhering to the principles of ALARA. MIP reconstructed images were created and reviewed. CONTRAST: Patient received 119ML OPTIRAY 320 of IV contrast COMPARISON: CT head without contrast performed at 00: 04 hours FINDINGS: VASCULATURE: Right internal carotid artery: Atherosclerotic calcification of the right cavernous and supraclinoid internal carotid artery without significant stenosis or occlusion. No aneurysm. Right anterior cerebral artery: The right A1 segment is hypoplastic. The right anterior cerebral artery is small in caliber but is patent without stenosis. The distal right anterior cerebral branches with a rise from the dominant left anterior cerebral artery. No aneurysm. Right middle cerebral artery: Unremarkable. No occlusion or significant stenosis. No aneurysm. Right posterior cerebral artery: Unremarkable. No occlusion or significant stenosis. No aneurysm. Right vertebral artery: Unremarkable as visualized. Left internal carotid artery: Atherosclerotic calcification of the left cavernous and supraclinoid internal carotid artery without significant stenosis or occlusion. No aneurysm. Left anterior cerebral artery: Left anterior cerebral artery is patent without stenosis or occlusion. Left middle cerebral artery: Unremarkable. No occlusion or significant stenosis. No aneurysm. Left posterior cerebral artery: Unremarkable. No occlusion or significant stenosis. No aneurysm. Left vertebral artery: Unremarkable as visualized. Basilar artery: Unremarkable. No occlusion or significant stenosis. No aneurysm. HEAD: Brain: Precontrast imaging demonstrates stable appearance of the parenchyma. No intracranial hemorrhage. No significant mass-effect. Periventricular deep white matter hypodense changes noted. Stable hypodense area involving a right parietal gyrus. No abnormal parenchymal enhancement. Ventricles: Unremarkable. No ventriculomegaly. Bones/joints: No acute fracture. Soft tissues: Unremarkable. Sinuses: Unremarkable as visualized. No acute sinusitis. Mastoid air cells: Unremarkable as visualized. No mastoid effusion. IMPRESSION: 1. Precontrast imaging is stable from the examination performed earlier the same day. No intracranial hemorrhage. No significant new mass- effect. Similar diffuse parenchymal involutional changes and deep white matter hypodense changes. Stable probable subacute to chronic focal area of encephalomalacia involving the right parietal region. 2. Negative intracranial CTA examination. No critical stenosis or occlusion. Electronically signed by: Margarito White MD 02/07/24 22:21 PM Neck CTA 02/07/24 17:13 Exam(s): CTA NECK With Contrast IV Amt: 119ML OPTIRAY 320 EXAM: CT Angiography Neck With Intravenous Contrast CLINICAL HISTORY: stroke workup. TECHNIQUE: Routine carotid CT angiography protocol was performed with intravenous contrast. NASCET criteria using the distal ICAs for comparison were used for evaluation of stenoses. CTDI is 10.54 mGy and DLP is 340.5 mGy-cm. Automated exposure control was utilized for the study. A dose lowering technique was utilized adhering to the principles of ALARA. MIP reconstructed images were created and reviewed. CONTRAST: Patient received 119ML OPTIRAY 320 of IV contrast COMPARISON: None. FINDINGS: VASCULATURE: Right common carotid artery: The right common carotid artery is relatively small in caliber when compared to the contralateral vessel but demonstrates no focal stenosis or occlusion. Right internal carotid artery: Unremarkable. Extracranial segment is patent with no occlusion or significant stenosis. No dissection. Right external carotid artery: Unremarkable. No occlusion. Right vertebral artery: Unremarkable. No occlusion or significant stenosis. No dissection. Left common carotid artery: Unremarkable. No occlusion or significant stenosis. No dissection. Left internal carotid artery: Atherosclerotic calcification involving the proximal left internal carotid artery at the carotid bifurcation. No significant stenosis by NASCET criteria. The mid to distal left internal carotid artery is otherwise patent. No dissection. Left external carotid artery: Unremarkable. No occlusion. Left vertebral artery: Unremarkable. No occlusion or significant stenosis. No dissection. Brachiocephalic and subclavian arteries: The origin of the brachiocephalic artery is not included. However, there appears to be near transluminal calcific atherosclerotic disease suggesting a significant stenosis, best appreciated on coronal reformatted imaging (series 700; image 38-48). The distal brachiocephalic artery is patent. Aorta: The aortic arch is patent without dissection or aneurysm. 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 There is 60-70% luminal stenosis involving the mid to distal left vertebral artery at the C3-4 level secondary to prominent hypertrophic osteophytes of the adjacent facet. The distal left vertebral artery is widely patent. NECK: Bones/joints: Multilevel degenerative changes incidentally noted. No acute osseous abnormality. Soft tissues: Unremarkable. Lung apices: Clear. CAROTID STENOSIS REFERENCE USING NASCET CRITERIA: % ICA stenosis = (1 - narrowest ICA diameter/diameter of distal cervical ICA) x 100. Mild - <50% stenosis. Moderate - 50-69% stenosis. Severe - 70-94% stenosis. Near occlusion - 95-99% stenosis. Occluded - 100% stenosis. IMPRESSION: 1. 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 There is 60-70% luminal stenosis involving the mid to distal left vertebral artery at the C3-4 level secondary to prominent hypertrophic osteophytes of the adjacent facet. The distal left vertebral artery is widely patent. The right vertebral artery is widely patent. 2. The origin of the brachiocephalic artery is not included. However, there appears to be near transluminal calcific atherosclerotic disease suggesting a significant stenosis, best appreciated on coronal reformatted imaging (series 700; image 38-48). The distal brachiocephalic artery is patent. 3. The right common carotid artery is relatively small in caliber when compared to the contralateral vessel, but demonstrates no focal stenosis or occlusion. This may be a related to suspected critical stenosis of the brachiocephalic artery. The right carotid bifurcation and internal carotid artery are patent. 4. The left common carotid and internal carotid arteries are patent without critical stenosis or occlusion. Electronically signed by: Margarito White MD 02/07/24 22:27 PM
[2024-02-11 09:29] LABS: BUN Creatinine Ratio 15.8 (10-20); Calcium 9.1 mg/dl (8.6-10.3); Creatinine Clr Calc Pharmacy 22.7 ml/min
[2024-02-11] MEDS: ACETAMINOPHEN 500 MG TAB PO ONE (14:36)
--- NOTE | 2024-02-12 11:34 | Hospitalist Progress Note ---
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 Sepsis POA Complicated UTI Metabolic encephalopathy, delirium on dementia: Secondary to above. Urine culture grew 3 types of organisms and the blood cultures are negative Will continue antibiotic for a total of 5 days - completed on 02/10 Symptoms have resolved, no signs or sx of infection Delirium precautions. PT OT eval. Social service re: placement - (Patient deemed unsafe by family to be living independently. Family interested in half-way placement at a local memory unit facility) Acute stroke: MRI brain with 2 discrete areas of infarct within the right MCA territory, CTA of head and neck shows atherosclerotic disease especially in right ICA distrib ution. Echocardiogram reviewed. Neurology evaluated, recommends DAPT and atorvastatin x 3 months and then continue single antiplatelet Neuro recommended consideration of Aricept 5mg trial - discussed with POA/daughter who is concerned about side effects and does not want to pursue trial Patient to follow-up with neurology upon discharge Witnessed fall Slid out of bed, aided down by staff on 02/10. No head trauma or residual pain Tylenol PRN, monitor Suicidal ideation Suicidal statements per family member RN MEDICAL INPATIENT SERVICES, patient currently denies suicidality Psychiatric lesion evaluated, appreciate Remains medically and psychiatrically stable to be transferred Denies any suicidal ideation Other chronic medical conditions: Continue with/resume home meds as and when able. Hypertension, BP on the lower side at presentation, now uptrending, resume home meds Hyperlipidemia on statin Rx COPD/ILD, lung status at baseline Hypothyroidism, euthyroid as of this admission's TSH Cervical/metastatic uterine cancer status post surgery/chemoradiation, currently in remission CRI, Cr 1.52 yesterday, baseline ~1.3-1.4. Today's lisinopril held, repeat BMP Past tobacco abuse DVT prophylaxis. Heparin subcu DNR as per patient's prior directives as per daughter/POA Ms. Winter Ohara. [phone]. Dispo: Patient will need placement - CM working on half-way placement, no beds available at this time Daughter Winter updated over the phone. I spent a total of 45 minutes coordinating, documenting, and providing care for this patient excluding time spent in the performance of separately billed services. Admission and Anticipated Discharge Date Admission Date: February 07, 2024 Supervising Physician Co-Signing Physician Notes 02/12/2024 The patient was seen and examined in medical telemetry unit She has been stable complains of some weakness but denies any other significant symptoms Awaiting placement On examination Sitting on a chair without any acute distress Hemodynamically stable with unremarkable examination Her labs were noted and medications were noted to Has impairment of renal function likely secondary to dehydration and the patient was advised to drink more fluid Otherwise remains stable and awaiting transfer to a facility Agree with assessment plan as outlined above by Stefanie Gomez PA-C and take the full responsibility of care in the hospital Dr Juan F Hairston Subjective Patient seen and examined in 283 bed 2. Sitting in bedside chair, pleasant. Denies any new complaints. Remainder of ROS unobtainable due to mental state. No acute events overnight. Review of Systems Review of Systems: All systems reviewed and are unremarkable except as noted below Physical Exam Physical Exam: Gen: WD/WN, NAD, sitting up at side of bed, A&Ox1, pleasantly confused, cooperative HEENT: Normocephalic, atraumatic, conjunctivae moist, sclerae anicteric, mucous membranes moist Lung: Clear to Auscultation bilaterally, diminished at bases Heart: Regular rate, regular rhythm Abdomen: Soft, NT, ND +BS x 4 Extremities: BLE trace edema Skin: Warm, no rash Results & Data Results & Data Vital Signs (Past 12 Hours) Vital Signs Temp Pulse Resp BP Pulse Ox O2 Del Method 02/12/24 08:08 36.4 C L 73 20 159/83 H 93 Room Air 02/12/24 07:17 Room Air 02/12/24 04:11 36.4 C L 70 16 91/61 L 92 Room Air
[2024-02-12 15:41] LABS: BUN Creatinine Ratio 16.4 (10-20); Calcium 9.4 mg/dl (8.6-10.3); Potassium 3.9 mmol/L (3.5-5.1)
[2024-02-13 07:10] LABS: Hematocrit (blood only) 37.4 % (37.0-47.0); Hemoglobin 12.3 g/dl (12.0-16.0); Mean Corpuscular Hemoglobin 28.9 pg (25.0-34.0); Mean Corpuscular Hgb Conc 32.9 g/dL (32.0-36.0); Mean Corpuscular Volume 87.8 fL (80.0-100.0); Mean Platelet Volume 8.7 fL (9.4-12.4); Platelet Count 288 K/uL (130-400); RDW Coefficient of Variation 13.4 % (11.5-14.5); RDW Standard Deviation 42.8 fL (36.4-46.3); Red Blood Count 4.26 M/uL (4.20-5.40); White Blood Count 6.87 K/ul (4.8-10.8)
--- NOTE | 2024-02-13 07:31 | Hospitalist Progress Note ---
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 Sepsis POA Complicated UTI Metabolic encephalopathy, delirium on dementia: Secondary to above. Urine culture grew 3 types of organisms and the BC are negative Completed abx on 02/10 Symptoms appear to have resolved. No signs of delirium; will remain on delirium precautions PT OT evaluation; Social service re: placement - (Patient deemed unsafe by family to be living independently. Family interested in senior care placement at a local inpatient memory unit facility) Acute stroke: MRI brain with 2 discrete areas of infarct within the right MCA territory, CTA of head and neck shows atherosclerotic disease especially in right ICA distribution. Echocardiogram reviewed. Neurology evaluated, recommends DAPT and atorvastatin x 3 months and then continue single antiplatelet Neuro recommended consideration of Aricept 5mg trial - previous hospitalist JOHN discussed with POA/daughter who is concerned about side effects and does not want to pursue trial Patient to follow-up with neurology upon discharge; will need to follow-up appointment scheduled Chronic renal insufficiency: Cr 1.52 02/10; today 1.28, baseline ~1.3-1.4. Continue to hold Lisinopril; if creatinine remains at baseline on 02/13 consider restarting for better BP control Witnessed fall Slid out of bed, aided down by staff on 02/10. 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 Hypertension, BP on the lower side at presentation, now uptrending, resume home meds Hyperlipidemia on statin Rx COPD/ILD, lung status at baseline Hypothyroidism, euthyroid as of this admission's TSH Cervical/metastatic uterine cancer status post surgery/chemoradiation, currently in remission Past tobacco abuse DVT prophylaxis. Heparin subcu DNR as per patient's prior directives as per daughter/POA Ms. Winter Ohara. [phone]. Dispo: Patient will need placement - CM working on senior care placement Alfred Max updated over the phone @ [phone] I spent a total of 52 minutes coordinating, documenting, and providing care for this patient excluding time spent in the performance of separately billed services. Admission and Anticipated Discharge Date Admission Date: February 07, 2024 Supervising Physician Co-Signing Physician Notes Attending addendum: Patient was seen and examined in medical telemetry unit She has been stable without any acute symptoms except weakness On examination Sitting on a chair without any acute distress Remains hemodynamically stable with blood pressure on the upper side at 160/81 Other system examination is unremarkable Her labs were noted and the medications reviewed She was strongly advised to drink more fluid and awaiting placement Agree with assessment plan as outlined above by Concepción KRUGER and take the full responsibility of care in the hospital DR Juan F Hairston Subjective Patient seen and examined in 283 bed 2. Patient sitting in the bedside chair in no apparent distress. Denies any new complaints. Patient is AAO x 2; able to tell me she is in the hospital but unable to to details regarding her hospitalization. When asked specifically why she is inpatient she says "it goes back a ways". Her ROS is unreliable due to cognitive state; Denies chest pain. No acute events overnight. Plan for downgrade from tele--> Med/Surg today. Review of Systems Review of Systems: All systems reviewed and are unremarkable except as noted below Physical Exam Physical Exam: Neuro: AAOx2, PERRLA, no aphagia, memory changes, CNII-XII grossly intact HEENT: head normocephalic, dry mucus membranes CV: S1/S2, (-) M/G/R, (-) edema, cap refill < 3 seconds Resp: Lungs CTA in all goldberg. On RA GI: Abdomen S/NT/ND, Ax4 bowel sounds, (-) CVA tenderness Musculoskeletal: 4/5 B/L UE strength, 4/5 B/L LE strength. Skin: (-) rashes , (-) erythema. Psych: euthymic mood Results & Data Results & Data Vital Signs (Past 12 Hours) Vital Signs Temp Pulse Resp BP Pulse Ox O2 Del Method 02/13/24 00:00 36.5 C 72 20 158/83 H 96 Room Air Laboratory Results Short CBC 02/13/24 Range/Units 06:42 WBC 6.87 (4.8-10.8) K/ul Hgb 12.3 (12.0-16.0) g/dl Hct 37.4 (37.0-47.0) % Plt Count 288 (130-400) K/uL BMP 02/12/24 14:54 Sodium 136 Potassium 3.9 Chloride 103 Carbon Dioxide 26 BUN 21 Creatinine 1.28 H Glucose 94 Calcium 9.4
[2024-02-14 07:10] LABS: BUN Creatinine Ratio 22.2 (10-20); Creatinine Clr Calc Pharmacy 32.3 ml/min; Potassium 4.1 mmol/L (3.5-5.1)
--- NOTE | 2024-02-14 07:51 | Hospitalist Progress Note ---
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 Sepsis POA Complicated UTI Metabolic encephalopathy, delirium on dementia: Secondary to above. Urine culture grew 3 types of organisms and the BC are negative Completed abx on 02/10 Symptoms appear to have resolved. No signs of delirium; will remain on delirium precautions PT OT evaluation; Social service re: placement - (Patient deemed unsafe by family to be living independently) Family interested in fpc placement at a local inpatient memory unit facility - CM assisting She is medically stable for discharge Acute stroke: MRI brain with 2 discrete areas of infarct within the right MCA territory, CTA of head and neck shows atherosclerotic disease especially in right ICA distribution. Echocardiogram reviewed. Neurology evaluated, recommends DAPT and atorvastatin x 3 months and then continue single antiplatelet Neuro recommended consideration of Aricept 5mg trial - previous hospitalist JOHN discussed with POA/daughter who is concerned about side effects and does not want to pursue trial Patient to follow-up with neurology upon discharge; will need to follow-up appointment scheduled Chronic renal insufficiency: Cr 1.52 02/10; today 1.08, baseline ~1.3-1.4. Continue to hold Lisinopril; Pt BP remains 113 Witnessed fall Slid out of bed, aided down by staff on 02/10. 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 Hypertension, BP on the lower side at presentation, now uptrending, resume home meds; keeping lisinopril on hold due to RIK as outlined above Hyperlipidemia on statin Rx COPD/ILD, lung status at baseline Hypothyroidism, euthyroid as of this admission's TSH Cervical/metastatic uterine cancer status post surgery/chemoradiation, currently in remission Past tobacco abuse DVT prophylaxis. Heparin SQ DNR as per patient's prior directives as per daughter/POA Ms. Winter Ohara. [phone]. Dispo: Patient will need placement - working on fpc placement; [facility] vs [facility] Teresa Daughter Winter updated over the phone @ [phone] I spent a total of 53 minutes coordinating, documenting, and providing care for this patient excluding time spent in the performance of separately billed servi asim. Admission and Anticipated Discharge Date Admission Date: February 07, 2024 Supervising Physician Co-Signing Physician Notes 02/14/2024 Patient was seen and examined in medical floor She has been stable and without any significant symptoms On examination Lying in bed without any acute distress Hemodynamically stable and afebrile Other system examination remains unremarkable Her labs and medications reviewed Remains medically stable to be transferred to a facility to continue physical therapy Agree with assessment and plan as outlined above by Concepción KRUGER and take the full responsibility of care in the hospital DR Juan F Hairston Subjective Patient seen and examined in 352; she just finished her breakfast and denies any new complaints and appears in no apparent distress Patient is AAO x 2; able to tell me she is in the hospital but unable to to details regarding her hospitalization. When asked specifically why she is inpatient she says "it goes back a ways" like she did yesterday. Her ROS is unreliable due to cognitive state; Denies chest pain, shortness of breath. No acute events overnight. see A/P for further details Review of Systems Review of Systems: Unobtainable due to cognitive status ( unreliable historian but denies chest pain and shortness of breath) Physical Exam Physical Exam: Neuro: AAOx2, PERRLA, no aphagia, memory changes, CNII-XII grossly intact HEENT: head normocephalic, dry mucus membranes CV: S1/S2, (-) M/G/R, (-) edema, cap refill < 3 seconds Resp: Lungs CTA in all goldberg. On RA GI: Abdomen S/NT/ND, Ax4 bowel sounds, (-) CVA tenderness Musculoskeletal: 4/5 B/L UE strength, 4/5 B/L LE strength. Skin: (-) rashes , (-) erythema. Psych: euthymic mood Results & Data Results & Data Vital Signs (Past 12 Hours) Vital Signs Temp Pulse Resp BP Pulse Ox O2 Del Method 02/13/24 21:04 36.5 C 73 16 113/77 93 Room Air 02/13/24 21:00 Room Air 02/13/24 20:03 36.4 C L 92 H 20 111/57 L 95 Room Air Laboratory Results [facility] 02/14/24 06:04 Sodium 136 Potassium 4.1 Chloride 105 Carbon Dioxide 23 BUN 24 H Creatinine 1.08 Glucose 93 Calcium 9.0
[2024-02-14] MEDS: MENTHOL-ZINC OXIDE 360 APPLN/120 GM TUBE EXT SCH (21:19)
--- NOTE | 2024-02-15 14:51 | Hospitalist Progress Note ---
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 Sepsis POA Complicated UTI Metabolic encephalopathy, delirium on dementia: Secondary to above. Urine culture grew 3 types of organisms and the BC are negative Completed abx on 02/10 Symptoms appear to have resolved. No signs of delirium; will remain on delirium precautions PT OT evaluation; Social service re: placement - (Patient deemed unsafe by family to be living independently) Family interested in care home placement at a local inpatient memory unit facility - CM assisting She is medically stable for discharge Acute stroke: MRI brain with 2 discrete areas of infarct within the right MCA territory, CTA of head and neck shows atherosclerotic disease especially in right ICA distribution. Echocardiogram reviewed. Neurology evaluated, recommends DAPT and atorvastatin x 3 months and then continue single antiplatelet Neuro recommended consideration of Aricept 5mg trial - previous hospitalist JOHN discussed with POA/daughter who is concerned about side effects and does not want to pursue trial Patient to follow-up with neurology upon discharge; will need to follow-up appointment scheduled Chronic renal insufficiency: Cr 1.52 02/10; today 1.08, baseline ~1.3-1.4. Continue to hold Lisinopril; Pt BP remains 113 Witnessed fall Slid out of bed, aided down by staff on 02/10. 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 Hypertension, BP on the lower side at presentation, now uptrending, resume home meds; keeping lisinopril on hold due to RIK as outlined above Hyperlipidemia on statin Rx COPD/ILD, lung status at baseline Hypothyroidism, euthyroid as of this admission's TSH Cervical/metastatic uterine cancer status post surgery/chemoradiation, currently in remission Past tobacco abuse DVT prophylaxis. Heparin SQ DNR as per patient's prior directives as per daughter/POA Ms. Winter Ohara. [id number]. Dispo: Patient will need placement - working on care home placement; [facility] vs [facility] Teresa Daughter Winter updated over the phone @ [phone] I spent a total of 45 minutes coordinating, documenting, and providing care for this patient excluding time spent in the performance of separately billed servi asim. Admission and Anticipated Discharge Date Admission Date: February 07, 2024 Supervising Physician Co-Signing Physician Notes 02/15/2024 Patient was seen and examined in medical floor She has been stable for the last few days without any acute symptoms Awaiting placement On examination Lying in bed without any acute distress Remains hemodynamically stable Minimal weakness but no other significant systemic findings on examination Her medications reviewed Agree with assessment plan as outlined above by Taty Bales PA-C and take the full responsibility of care in the hospital Dr Juan F Hairston Subjective Pt seen and examined in room 352-1. Nurse Susana at bedside. She denies any current complaints or concerns. She denies f/c/s, chest pain, sob, n/v/d. Per nursing she requires frequent reminding she can't get up and go to the bathroom on her own. Review of Systems Review of Systems: All systems reviewed & are unremarkable except as noted in HPI & below Physical Exam Physical Exam: Gen: WD/WN, elderly, F, NAD, A&O x3 basics HEENT: Normocephalic, atraumatic, conjunctivae moist, sclerae anicteric, mucous membranes moist. Lung: Clear to Auscultation bilaterally, no wheezes/rales/rhonchi Heart: Regular rate, regular rhythm, no murmurs, rubs, or gallops Abdomen: Soft, NT, ND +BS x 4 Extremities: No edema Skin: Warm, no rash, negative turgor. Results & Data Results & Data Vital Signs (Past 12 Hours) Vital Signs Temp Pulse Resp BP Pulse Ox O2 Del Method 02/15/24 07:31 36.4 C L 61 16 134/80 96 Room Air Medications Administered Current Inpatient Medications Acetaminophen (Acetaminophen 325 Mg Tab) 650 mg PO QID PRN PRN Reason: pain/fever Stop: 03/08/24 01:44 Last Admin: 02/14/24 21:20 Dose: 650 mg Aspirin (Aspirin 81 Mg Ectab) 81 mg PO QAM [facility] Stop: 03/08/24 18:44 Last Admin: 02/15/24 08:55 Dose: 81 mg Atorvastatin Calcium (Atorvastatin 10 Mg Tab) 10 mg PO MoWeFr@0900 [facility] Stop: 03/09/24 08:59 Last Admin: 02/15/24 08:55 Dose: 10 mg Calamine/Phenol (Menthol-Zinc Oxide 360 Appln/120 Gm Tube) 1 appln EXT TID [facility] Stop: 03/15/24 20:59 Last Admin: 02/15/24 14:05 Dose: 1 appln Clopidogrel Bisulfate (Clopidogrel Bisulfate 75 Mg Tab) 75 mg PO QAM [facility] Stop: 03/09/24 12:14 Last Admin: 02/15/24 08:55 Dose: 75 mg Cyanocobalamin (Cyanocobalamin (B-12) 500 Mcg Tablet) 500 mcg PO BID [facility] Stop: 03/09/24 12:29 Last Admin: 02/15/24 08:55 Dose: 500 mcg Haloperidol Lactate (Haloperidol Lactate 5 Mg/Ml 1 Ml Vial) 2 mg IM Q2H PRN PRN Reason: Agitation Stop: 03/08/24 01:44 Last Admin: 02/09/24 20:13 Dose: 2 mg Heparin Sodium (Porcine) (Heparin Sod 5,000 Unit/0.5 Ml Vial) 5,000 units SQ Q8 [facility] Stop: 03/08/24 05:59 Last Admin: 02/15/24 14:05 Dose: 5,000 units Lactobacillus Acidophilus (Advanced Probiotic 625 Mg Capsule) 1,250 mg PO DAILY [facility] Stop: 03/08/24 12:29 Last Admin: 02/15/24 08:54 Dose: 1,250 mg Levothyroxine Sodium (Levothyroxine Sodium 75 Mcg Tablet) 75 mcg PO DAILYBB [facility] Stop: 03/08/24 06:29 Last Admin: 02/15/24 06:37 Dose: 75 mcg Lisinopril (Lisinopril 10 Mg Tab) 10 mg PO DAILY [facility] Stop: 03/08/24 12:29 Last Admin: 02/11/24 08:18 Dose: 10 mg Loperamide HCl (Loperamide Hcl 2 Mg Cap) 2 mg PO Q3H PRN PRN Reason: Diarrhea Stop: 03/11/24 15:10 Last Admin: 02/14/24 15:46 Dose: 2 mg Metoprolol Succinate (Metoprolol Succ 25mg Ext Rel Tab) 25 mg PO DAILY [facility] Stop: 03/08/24 08:59 Last Admin: 02/15/24 08:55 Dose: 25 mg
[2024-02-16 08:24] LABS: Hematocrit (blood only) 37.7 % (37.0-47.0); Hemoglobin 12.7 g/dl (12.0-16.0); Mean Corpuscular Hemoglobin 29.8 pg (25.0-34.0); Mean Corpuscular Hgb Conc 33.7 g/dL (32.0-36.0); Mean Corpuscular Volume 88.5 fL (80.0-100.0); Mean Platelet Volume 8.7 fL (9.4-12.4); Platelet Count 300 K/uL (130-400); RDW Coefficient of Variation 13.4 % (11.5-14.5); RDW Standard Deviation 43.8 fL (36.4-46.3); Red Blood Count 4.26 M/uL (4.20-5.40); White Blood Count 5.28 K/ul (4.8-10.8)
--- NOTE | 2024-02-16 12:47 | Hospitalist Progress Note ---
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 Sepsis POA Complicated UTI Metabolic encephalopathy, delirium on dementia: Secondary to above. Urine culture grew 3 types of organisms and the BC are negative Completed abx on 02/10 Symptoms appear to have resolved. No signs of delirium; will remain on delirium precautions PT OT evaluation; Social service re: placement - (Patient deemed unsafe by family to be living independently) Family interested in halfway placement at a local inpatient memory unit facility - CM assisting She is medically stable for discharge Acute stroke: MRI brain with 2 discrete areas of infarct within the right MCA territory, CTA of head and neck shows atherosclerotic disease especially in right ICA distribution. Echocardiogram reviewed. Neurology evaluated, recommends DAPT and atorvastatin x 3 months and then continue single antiplatelet Neuro recommended consideration of Aricept 5mg trial - previous hospitalist JOHN discussed with POA/daughter who is concerned about side effects and does not want to pursue trial Patient to follow-up with neurology upon discharge; will need to follow-up appointment scheduled Chronic renal insufficiency: Cr 1.52 02/10; today 1.08, baseline ~1.3-1.4. Continue to hold Lisinopril; Pt BP remains 113 Witnessed fall Slid out of bed, aided down by staff on 02/10. 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 Hypertension,BP on lower side, lisinopril remains on hold, likely can d/c at discharge, continue metoprolol Hyperlipidemia on statin Rx COPD/ILD, lung status at baseline Hypothyroidism, euthyroid as of this admission's TSH Cervical/metastatic uterine cancer status post surgery/chemoradiation, currently in remission Past tobacco abuse DVT prophylaxis. Heparin SQ DNR as per patient's prior directives as per daughter/POA Ms. Winter Ohara. [phone]. Dispo: Patient will need placement - working on halfway placement; [facility] vs [facility] I spent a total of 44 minutes coordinating, documenting, and providing care for this patient excluding time spent in the performance of separately billed services. Admission and Anticipated Discharge Date Admission Date: February 07, 2024 Supervising Physician Co-Signing Physician Notes Attending addendum: The patient was seen and examined in medical floor She has been stable and awaiting placement On examination Lying in bed without any acute distress Remains hemodynamically stable Systemic examination remains unremarkable Her current medications reviewed Presented with sepsis secondary to complicated UTI and also recent acute stroke Remains medically stable and awaiting rehab placement Agree with assessment and plan as outlined above by Taty Bynum PA-C and take the full responsibility of care in the hospital Dr Juan F Hairston Subjective Pt seen and examined in room 352-1. She endorses no complaints. She moved her bowels this a.m. She denies f/c/s, chest pain, sob, n/v/d. She does have mild confusion. Review of Systems Review of Systems: All systems reviewed & are unremarkable except as noted in HPI & below Physical Exam Physical Exam: Gen: WD/WN, elderly, F, NAD, A&O x3 basics HEENT: Normocephalic, atraumatic, conjunctivae moist, sclerae anicteric, mucous membranes moist. Lung: Clear to Auscultation bilaterally, no wheezes/rales/rhonchi Heart: Regular rate, regular rhythm, no murmurs, rubs, or gallops Abdomen: Soft, NT, ND +BS x 4 Extremities: No edema Skin: Warm, no rash, negative turgor. Results & Data Results & Data Vital Signs (Past 12 Hours) Vital Signs Temp Pulse Resp BP Pulse Ox O2 Del Method 02/16/24 09:19 102/68 02/16/24 07:46 36.3 C L 67 17 83/57 L 95 Room Air Laboratory Results I have independently reviewed and interpreted patient's cbc Medications Administered Current Inpatient Medications Acetaminophen (Acetaminophen 325 Mg Tab) 650 mg PO QID PRN PRN Reason: pain/fever Stop: 03/08/24 01:44 Last Admin: 02/14/24 21:20 Dose: 650 mg Aspirin (Aspirin 81 Mg Ectab) 81 mg PO QAM [facility] Stop: 03/08/24 18:44 Last Admin: 02/16/24 09:16 Dose: 81 mg Atorvastatin Calcium (Atorvastatin 10 Mg Tab) 10 mg PO MoWeFr@0900 [facility] Stop: 03/09/24 08:59 Last Admin: 02/15/24 08:55 Dose: 10 mg Calamine/Phenol (Menthol-Zinc Oxide 360 Appln/120 Gm Tube) 1 appln EXT TID [facility] Stop: 03/15/24 20:59 Last Admin: 02/16/24 09:17 Dose: 1 appln Clopidogrel Bisulfate (Clopidogrel Bisulfate 75 Mg Tab) 75 mg PO QAM [facility] Stop: 03/09/24 12:14 Last Admin: 02/16/24 09:16 Dose: 75 mg Cyanocobalamin (Cyanocobalamin (B-12) 500 Mcg Tablet) 500 mcg PO BID [facility] Stop: 03/09/24 12:29 Last Admin: 02/16/24 09:16 Dose: 500 mcg Haloperidol Lactate (Haloperidol Lactate 5 Mg/Ml 1 Ml Vial) 2 mg IM Q2H PRN PRN Reason: Agitation Stop: 03/08/24 01:44 Last Admin: 02/09/24 20:13 Dose: 2 mg Heparin Sodium (Porcine) (Heparin Sod 5,000 Unit/0.5 Ml Vial) 5,000 units SQ Q8 [facility] Stop: 03/08/24 05:59 Last Admin: 02/16/24 06:04 Dose: 5,000 units Lactobacillus Acidophilus (Advanced Probiotic 625 Mg Capsule) 1,250 mg PO DAILY [facility] Stop: 03/08/24 12:29 Last Admin: 02/16/24 09:16 Dose: 1,250 mg Levothyroxine Sodium (Levothyroxine Sodium 75 Mcg Tablet) 75 mcg PO DAILYBB [facility] Stop: 03/08/24 06:29 Last Admin: 02/16/24 06:05 Dose: 75 mcg Lisinopril (Lisinopril 10 Mg Tab) 10 mg PO DAILY [facility] Stop: 03/08/24 12:29 Last Admin: 02/11/24 08:18 Dose: 10 mg Loperamide HCl (Loperamide Hcl 2 Mg Cap) 2 mg PO Q3H PRN PRN Reason: Diarrhea Stop: 03/11/24 15:10 Last Admin: 02/14/24 15:46 Dose: 2 mg Metoprolol Succinate (Metoprolol Succ 25mg Ext Rel Tab) 25 mg PO DAILY [facility] Stop: 03/08/24 08:59 Last Admin: 02/16/24 09:19 Dose: 25 mg
[2024-02-17 06:15] LABS: BUN Creatinine Ratio 18.4 (10-20); Calcium 9.2 mg/dl (8.6-10.3); Creatinine Clr Calc Pharmacy 28.3 ml/min; Potassium 4.5 mmol/L (3.5-5.1)
--- NOTE | 2024-02-17 07:41 | Discharge Summary ---
<Statement entered by Blayne Higuera DO - 02/17/24 16:51> I have seen and examined the patient prior to discharge and have discussed the case with the provider above. I have reviewed the advanced practitioner's documentation, and I agree with, and take responsibility for that plan of care. Patient appears to be at her baseline. Understanding need for ongoing care and rehabilitation. 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 Sepsis 2/2 Complicated UTI - Now Resolved Metabolic Encephalopathy, Delirium Superimposed on Dementia: In summary, patient was found to be septic on admission secondary to complicated UTI in the setting of delirium superimposed on dementia. Patient was ultimately treated with IV fluids and a 5-day course of IV Rocephin. Sepsis resolved. Urine culture grew more than 3 types of organisms, all low counts mixed probable skin nina. Blood cultures were negative. Symptoms appear to have resolved. Suspect delirium was secondary to acute infection; no signs of delirium on discharge. Patient has returned to baseline mentation status with typical intermittent confusion. Family was interested in long-term placement at a local inpatient memory unit facility as the patient's dementia has been progressively worsening since last March. Per PT/OT recommendations, patient deemed unsafe to return home to independent living. Patient is subsequently being discharged to [facility]. Acute Stroke: Head CT on 02/06/2024 noted hypodense areas in the right frontal and parietal periventricular regions. This was concerning for possible early changes of an acute ischemic infarction vs old findings from prior vascular events, therefore brain MRI was recommended. Brain MRI on 02/07/2024 revealed right superior frontal and occipital deep white matter foci of diffusion restriction denoting acute infarcts. Brain MRI also showed additional new findings of partial loss of the signal void of the right transverse and sigmoid sinuses suggesting venous thrombosis as well as attenuated cavernous and supra clinoid segments of the right ICA. CTA head and neck on 01/28/2024 revealed atherosclerotic disease particularly in the right ICA distribution. Intracranial vessels display intracranial atherosclerotic disease. Echocardiogram showed no cardiac source of emboli with preserved ejection fraction and left atrium. Neurology evaluated the patient and recommended the following: ASA 81mg daily in addition to Plavix 75mg daily plus atorvastatin x 3 months then switch to single antiplatelet therapy. Neurology also recommended considering adding on a trial of Aricept 5mg HS - however this was discussed with the patient's daughter/POA per previous hospitalist documentation and she decided to not pursue this trial secondary to concern regarding medication adverse effects. Patient will need follow-up with [facility]rology upon discharge; she has previously seen Brenda Walton MD at [facility]. Chronic Renal Insufficiency: Cr 1.52 on 02/11/2024, now improved to 1.25 on day of discharge. Baseline Cr ~1.3-1.4 per chart review on [facility]. Continue to HOLD home lisinopril 10mg daily upon discharge; patient remains relatively hypotensive in the 110-120s/60s-80s at time of discharge. Will need PCP follow-up appointment arranged upon discharge. Witnessed Fall: Slid out of bed, aided down by staff on 02/11/2024. No head trauma or residual pain. 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 Psychiatric liaison was consulted. Patient denied previous suicide attempts. Patient reports that she does not recall making any suicidal statements to her daughter. She remains medically and psychiatrically stable for discharged to [facility]. Other Chronic Medical Conditions: Continue with/resume home meds as and when able. * HTN - Remains relative hypotensive upon discharge as per above, home lisinopril remains on hold. Can continue home metoprolol succinate. * HLD - Continue statin as per above. COPD/ILD - Lung status at baseline upon discharge. Hypothyroidism - Continue levothyroxine, euthyroid as of this admission's TSH. PCP: Roxanna Reaves, DO Disposition: Patient is being discharged to [facility] as per above. Patient seen in collaboration with Dr. Higuera. Please see addendum. I spent a total of 65 minutes coordinating, documenting, and providing care for this patient excluding time spent in the performance of separately billed services. This included personally reviewing all current laboratories and imaging studies, medical reconciliation, outpatient chart review and discussion with specialists. This chart was completed in part utilizing Speech Voice Recognition Software. Grammatical errors, random word insertions, pronoun errors, and incomplete sentences are an occasional consequence of this system due to software limitations, ambient noise, and hardware issues. Any formal questions or concerns about the content, text, or information contained within the body of this dictation should be directly addressed to the provider for clarification. Notes For Next Care Provider Patient will need close PCP and neurology follow-up appointments. Her home lisinopril 10mg/daily is on hold at time of discharge 2/2 relative hypotension. Medication Changes From Visit 1.) Previous home lisinopril 10mg daily currently on hold 2/2 relative hypotension. She was started on a vitamin B12 supplement. 2.) ASA 81mg daily in addition to Plavix 75mg daily plus atorvastatin x 3 months then switch to single antiplatelet therapy per neurology's recommendation ISO acute CVA. Admission HPI Per Admitting Provider History obtained from patient, family, and records. Limited history from patient secondary to dementia. 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 Last confinement December 2017 for LGIB. Colonoscopy limited by stenosis. Patient more confused than usual the last few days as per daughter. Patient denies headache, chest pain, SOB, abdominal pain, or dysuria symptoms. Verbalized to family that she [facility] to [facility]. Patient daughter thinks patient not safe living independently at current [facility] residence. Patient dementia had sudden worsening over the last 6 months. Outpatient Brain MRI recommended by [facility] neurologist on last outpatient visit from 3 weeks ago. IV ceftriaxone administered at the ER. 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 HEENT: Normocephalic, atraumatic. Conjunctivae normal. Oropharynx moist. Respiratory: Normal respiratory effort, lungs clear to auscultation, no wheezing. Cardiovascular: Regular rate, rhythm, normal peripheral pulses, no BLE edema. Abdomen/GI: Normal bowel sounds, soft, nontender to palpation in all quadrants. Extremities/Musculoskeletal: No cyanosis or clubbing, able to move all extremities. Updated Medication List Medication Instructions Recorded Confirmed Type atorvastatin 10 mg tablet (Lipitor) 10 mg PO [id number] 01/04/18 02/07/24 History levothyroxine 75 mcg tablet 75 mcg PO DAILY 01/04/18 02/07/24 History lisinopril 10 mg tablet 10 mg PO DAILY 01/04/18 02/07/24 History loperamide 2 mg tablet 2 mg PO UD PRN Diarrhea 01/04/18 02/07/24 History metoprolol succinate 25 mg 25 mg PO DAILY 01/04/18 02/07/24 History tablet,extended release 24 hr (Toprol XL) triamcinolone acetonide 0.1 % 1 applic topical UNKNOWN PRN 01/04/18 02/07/24 History topical cream Unknown aspirin 81 mg tablet,delayed 81 mg PO QAM #30 tabs 02/17/24 Rx release clopidogrel 75 mg tablet 75 mg PO QAM #30 tabs 02/17/24 Rx cyanocobalamin (vitamin B-12) 500 500 mcg PO BID #30 tabs 02/17/24 Rx mcg tablet Hospital Stay Data Consultations 02/07/24 01:05 ED Decision to Admit Stat 02/07/24 16:56 Consult Neurology Routine Diagnostic Imagining Performed 02/06/24 23:41 CT head/brain wo con Stat 02/07/24 01:47 MRI Brain [MR brain wo/w con] Routine 02/07/24 17:13 CTA head wo/w [CT angio head wo/w] Routine CTA neck with con [CT angio neck with con] Routine Discharge Instructions Given to Patient (Per Discharging Provider) Ms. Ortiz, You were admitted to the hospital secondary to confusion and found to have a urinary tract infection (UTI), which is an infection that can occur anywhere in your urinary system (including your kidneys, bladder, ureters, and urethra). You were managed with IV fluids and IV antibiotics which treated your UTI as well as improved your level of confusion. You will have close follow-up arranged with your primary care provider (PCP) - this will be arranged at [facility]. We suspect your confusion was a result of your UTI however we did perform lesli ging including head CT and brain MRI for further evaluation which unfortunately did reveal that you suffered a stroke. A stroke is like a "brain attack" where blood flow to a part of your brain suddenly stops, preventing it from getting the oxygen it needs, which can damage brain cells and lead to problems with movement, speech, or vision, depending on which area is affected. You were seen and evaluated by the on-call neurologist whom recommended the following medication changes: aspirin 81mg daily + Plavix 75mg daily x 3 MONTHS in addition to continuing your atorvastatin. You will eventually be transitioned to single antiplatelet therapy (meaning back to your previous Plavix 75mg daily and discontinuing the aspirin) in the next 3 months. You will have close follow- up arranged with [facility] - this will be arranged at [facility]. Your blood pressure was found to be on the lower side during this admission therefore we have HELD your home LISINOPRIL 10mg daily. Please continue to HOLD OFF on taking this medication until you are seen by your PCP! You may no longer require this medication for your blood pressure. Also, you were started on a vitamin B12 supplement. RECOMMENDATIONS FOR FOLLOW-UP: * Follow-up appointments both with your PCP and neurologist will be arranged at [facility]! MEDICATION CHANGES: 1.) Continue to HOLD your lisinopril 10mg daily until otherwise directed by your PCP as per above. 2.) Aspirin 81mg daily + Plavix 75mg x 3 MONTHS as per above. You can continue taking your atorvastatin as previously prescribed. Seek medical attention if you have: * temperature above 101F * chest pain or trouble breathing * abdominal pain, nausea, vomiting * diarrhea, dark stools or bloody stools * any unanswered questions or concerns Call 911 if symptoms are severe. Please take good care of yourself. It has been a pleasure taking care of you. If you have any questions regarding your recent hospitalization please contact [facility] and request Mayito Xie @ [phone]. Total Time Total Time Spent Total Time Spent (In Minutes): 65
[2024-02-17 08:04] VITALS: RESP 16; O2SAT 97
[2024-02-17 11:35] VITALS: PULSE 64; TEMP 97.5
[2024-02-17 12:32] VITALS: BP 107/66
== END 2024-02-17 12:57 | DRG 871 ==
LOC: ED 23:29 → EDINP 02-07 01:43 → SUATTDRO 02-07 01:43 → 2N 02-07 03:01 → 3W 02-13 21:01